=== PATIENT | female | born 1970 | race Caucasian/White ===

== ENCOUNTER → 2023-10-13 09:19 | Outpatient (REF) | payer BC, SELFPAY ==
[2023-10-13 12:18] LABS: Urine Albumin Negative (Neg - Trace); Urine Bilirubin Negative (Negative); Urine Character Clear (Clear); Urine Color Yellow; Urine Glucose Negative (Negative); Urine Ketone Negative (Negative); Urine Leukocyte Trace (Negative); Urine Nitrite Negative (Negative); Urine Occult Blood Negative (Negative); Urine Urobilinogen Negative (Neg - 1+)
[2023-10-13 12:20] LABS: % Eosinophils 2.2 % (0-6); % Immature Granulocytes 0.2 % (0-0.5); % Lymphocytes 39.1 % (20.5-51.1); % Monocytes 7.3 % (1.7-9.3); % Neutrophils 50.2 % (42.2-75.2); Absolute Eosinophils 0.1 10^3/uL (0-0.7); Absolute Lymphocytes 1.6 10^3/uL (1.2-3.4); Absolute Monocytes 0.3 10^3/uL (0.1-0.6); Absolute Neutrophils 2.1 10^3/uL (1.4-6.5); Hematocrit 32.9 % (37.0-47.0); Hemoglobin 11.2 g/dL (12.0-16.0); Mean Corpuscular Hgb 32.5 pg (27.0-31.0); Mean Corpuscular Volume 95.4 fL (81.0-99.0); Mean Platelet Volume 9.3 fL (7.4-10.4); Nucleated Red Blood Cells % 0 %; Platelet Count 208 10^3/uL (130-400); Red Blood Cell Count 3.45 10^6/uL (4.20-5.40); Red Cell Dist. Width 13.2 % (11.5-14.5); White Blood Cell Count 4.1 10^3/uL (4.8-10.8)
[2023-10-13 12:55] LABS: ALT (SGPT) 33 U/L (0-35); AST (SGOT) 42 U/L (14-36); Albumin 3.5 g/dl (3.5-5.0); Alkaline Phosphatase 115 U/L (38-126); Blood Urea Nitrogen 22 mg/dl (7-17); Calcium 10.5 mg/dl (8.4-10.2); Carbon Dioxide 27 mmol/L (22-30); Chloride 100 mmol/L (98-107); Glucose 75 mg/dl (70-99); Magnesium 2.3 mg/dl (1.6-2.3); Phosphorus 5.4 mg/dl (2.5-4.5); Potassium 5.7 mmol/L (3.5-5.1); Sodium 129 mmol/L (135-145); Total Bilirubin 0.8 mg/dl (0.2-1.3); Total Cholesterol 220 mg/dl (50-199); Total Protein 5.9 g/dl (6.3-8.2); Triglyceride 129 mg/dl (10-149); Very Low Density Lipoprotein 25 mg/dl (0-30)
[2023-10-13 13:03] LABS: HDL Cholesterol 135 mg/dl; LDL Cholesterol, Calculated 60 mg/dl
[2023-10-13 13:10] LABS: Free T4 1.16 ng/dl (0.78-2.19)
[2023-10-13 13:24] LABS: TSH < 0.02 uIU/ml (0.47-4.68)
[2023-10-13 13:26] LABS: Urine Bacteria Few (Negative); Urine Red Blood Cell 0-2 /HPF (0-2)
== END ==
LOC: HWLAB 09:19
PROVIDERS: ATTENDING PHYSICIAN Internal Medicine; FAMILY PHYSICIAN Internal Medicine; OTHER PHYSICIAN Physician Assistant Medical; REFERRING PHYSICIAN Internal Medicine Nephrology
DX: E03.9 Hypothyroidism, unspecified (principal); N20.0 Calculus of kidney; N18.4 Chronic kidney disease, stage 4 (severe); N13.2 Hydronephrosis with renal and ureteral calculous obstruction; E43 Unspecified severe protein-calorie malnutrition; D63.1 Anemia in chronic kidney disease; S06.0X0A Concussion without loss of consciousness, initial encounter; S09.90XA Unspecified injury of head, initial encounter; R63.4 Abnormal weight loss; N18.32 Chronic kidney disease, stage 3b
CPT/HCPCS: 36415; 80053; 80061; 81003; 81015; 83735; 84100; 84439; 84443; 85025; 87086

== ENCOUNTER → 2023-10-16 13:20 | Outpatient (REF) | payer BC, SELFPAY | LOC: HWRAD 13:20 | PROVIDERS: ATTENDING PHYSICIAN Internal Medicine Nephrology; FAMILY PHYSICIAN Internal Medicine | DX: N20.0 Calculus of kidney (principal); N13.2 Hydronephrosis with renal and ureteral calculous obstruction; N18.4 Chronic kidney disease, stage 4 (severe); E43 Unspecified severe protein-calorie malnutrition; N17.9 Acute kidney failure, unspecified; E87.5 Hyperkalemia; E83.39 Other disorders of phosphorus metabolism | CPT/HCPCS: 74176 ==

== ENCOUNTER → 2023-10-26 06:35 | Outpatient (REF) | payer BC, SELFPAY ==
[2023-10-26 07:13] LABS: Ionized Calcium 1.11 mMOL/L (1.15-1.33)
[2023-10-26 07:18] LABS: % Basophils 1.1 % (0-2); % Eosinophils 4.1 % (0-6); % Immature Granulocytes 0.2 % (0-0.5); % Lymphocytes 40.2 % (20.5-51.1); % Monocytes 6.8 % (1.7-9.3); % Neutrophils 47.6 % (42.2-75.2); Absolute Basophils 0.1 10^3/uL (0-0.2); Absolute Eosinophils 0.2 10^3/uL (0-0.7); Absolute Lymphocytes 1.8 10^3/uL (1.2-3.4); Absolute Monocytes 0.3 10^3/uL (0.1-0.6); Absolute Neutrophils 2.2 10^3/uL (1.4-6.5); Hematocrit 30.8 % (37.0-47.0); Hemoglobin 10.1 g/dL (12.0-16.0); Mean Corp Hgb Conc. 32.8 g/dL (33.0-37.0); Mean Corpuscular Hgb 32.3 pg (27.0-31.0); Mean Corpuscular Volume 98.4 fL (81.0-99.0); Mean Platelet Volume 9.1 fL (7.4-10.4); Nucleated Red Blood Cells % 0 %; Platelet Count 220 10^3/uL (130-400); Red Blood Cell Count 3.13 10^6/uL (4.20-5.40); Red Cell Dist. Width 13.1 % (11.5-14.5); White Blood Cell Count 4.6 10^3/uL (4.8-10.8)
[2023-10-26 07:27] LABS: ALT (SGPT) 14 U/L (0-35); AST (SGOT) 29 U/L (14-36); Albumin 3.3 g/dl (3.5-5.0); Alkaline Phosphatase 83 U/L (38-126); Blood Urea Nitrogen 24 mg/dl (7-17); Calcium 8.2 mg/dl (8.4-10.2); Calcium 8.4 mg/dl (8.4-10.2); Carbon Dioxide 24 mmol/L (22-30); Chloride 98 mmol/L (98-107); Glucose 75 mg/dl (70-99); Iron 65 ug/dl (37-170); Magnesium 2.1 mg/dl (1.6-2.3); Phosphorus 5.1 mg/dl (2.5-4.5); Potassium 5.1 mmol/L (3.5-5.1); Sodium 130 mmol/L (135-145); Total Bilirubin 0.6 mg/dl (0.2-1.3); Total Protein 5.4 g/dl (6.3-8.2); eGFR 22.16
[2023-10-26 07:36] LABS: Percent Saturation 27 % (20-50); Total Iron Binding Capacity 235 ug/dl (265-497)
[2023-10-26 07:44] LABS: Free T4 1.02 ng/dl (0.78-2.19)
[2023-10-26 07:58] LABS: Cortisol, Random 36.5 ug/dl; TSH < 0.02 uIU/ml (0.47-4.68)
[2023-10-26 08:02] LABS: Ferritin 16.7 ng/ml (11.1-264.0)
[2023-10-26 08:03] LABS: Ferritin 16.4 ng/ml (11.1-264.0)
[2023-10-26 08:56] LABS: Vitamin D, 25-OH*** 61.9 ng/mL (30-80)
[2023-10-26 13:41] LABS: Intact PTH < 3.4 pg/ml (13.6-85.8)
== END ==
LOC: REG 06:35
PROVIDERS: ATTENDING PHYSICIAN Urology; FAMILY PHYSICIAN Internal Medicine; OTHER PHYSICIAN Internal Medicine; REFERRING PHYSICIAN Internal Medicine Nephrology
DX: S06.0X0A Concussion without loss of consciousness, initial encounter (principal); S09.90XA Unspecified injury of head, initial encounter; R63.4 Abnormal weight loss; N18.32 Chronic kidney disease, stage 3b; E03.9 Hypothyroidism, unspecified; R06.02 Shortness of breath; N20.0 Calculus of kidney; N13.2 Hydronephrosis with renal and ureteral calculous obstruction; N18.4 Chronic kidney disease, stage 4 (severe); E43 Unspecified severe protein-calorie malnutrition; D63.1 Anemia in chronic kidney disease; E20.9 Hypoparathyroidism, unspecified; R79.89 Other specified abnormal findings of blood chemistry
CPT/HCPCS: 36415; 80053; 80069; 82040; 82306; 82330; 82533; 82728; 83540; 83550; 83735; 83970; 84100; 84439; 84443; 85025

== ENCOUNTER → 2023-11-02 07:06 | Outpatient (REF) | payer BC, SELFPAY ==
[2023-11-02 07:31] LABS: % Eosinophils 3.4 % (0-6); % Immature Granulocytes 0.2 % (0-0.5); % Monocytes 8.1 % (1.7-9.3); % Neutrophils 48.3 % (42.2-75.2); Absolute Basophils 0.1 10^3/uL (0-0.2); Absolute Eosinophils 0.2 10^3/uL (0-0.7); Absolute Lymphocytes 1.9 10^3/uL (1.2-3.4); Absolute Monocytes 0.4 10^3/uL (0.1-0.6); Absolute Neutrophils 2.4 10^3/uL (1.4-6.5); Hematocrit 28.9 % (37.0-47.0); Hemoglobin 9.8 g/dL (12.0-16.0); Mean Corp Hgb Conc. 33.9 g/dL (33.0-37.0); Mean Corpuscular Hgb 32.7 pg (27.0-31.0); Mean Corpuscular Volume 96.3 fL (81.0-99.0); Nucleated Red Blood Cells % 0 %; Platelet Count 255 10^3/uL (130-400)
[2023-11-02 07:49] LABS: ALT (SGPT) 16 U/L (0-35); AST (SGOT) 26 U/L (14-36); Alkaline Phosphatase 87 U/L (38-126); Blood Urea Nitrogen 34 mg/dl (7-17); Calcium 10.4 mg/dl (8.4-10.2); Carbon Dioxide 22 mmol/L (22-30); Chloride 98 mmol/L (98-107); Direct Bilirubin 0.6 mg/dl (0.0-0.4); Glucose 77 mg/dl (70-99); Iron 68 ug/dl (37-170); Magnesium 2.2 mg/dl (1.6-2.3); Potassium 4.5 mmol/L (3.5-5.1); Sodium 131 mmol/L (135-145); Total Bilirubin 0.6 mg/dl (0.2-1.3); Total Protein 5.3 g/dl (6.3-8.2); eGFR 22.16
[2023-11-02 07:58] LABS: Percent Saturation 29 % (20-50); Total Iron Binding Capacity 228 ug/dl (265-497)
[2023-11-02 08:24] LABS: Ferritin 12.3 ng/ml (11.1-264.0)
[2023-11-02 13:42] LABS: Phosphorus 5.4 mg/dl (2.5-4.5)
== END ==
LOC: REG 07:06
PROVIDERS: ATTENDING PHYSICIAN Internal Medicine Nephrology; FAMILY PHYSICIAN Internal Medicine
DX: N18.9 Chronic kidney disease, unspecified (principal); N20.0 Calculus of kidney; N18.4 Chronic kidney disease, stage 4 (severe); N32.2 Vesical fistula, not elsewhere classified; E43 Unspecified severe protein-calorie malnutrition; D63.1 Anemia in chronic kidney disease; N13.2 Hydronephrosis with renal and ureteral calculous obstruction
CPT/HCPCS: 36415; 80053; 82248; 82728; 83540; 83550; 83735; 84100; 85025

== ENCOUNTER → 2023-11-09 06:39 | Outpatient (REF) | payer BC, SELFPAY ==
[2023-11-09 07:19] LABS: Albumin 3.3 g/dl (3.5-5.0); Blood Urea Nitrogen 33 mg/dl (7-17); Calcium 11.1 mg/dl (8.4-10.2); Carbon Dioxide 25 mmol/L (22-30); Chloride 101 mmol/L (98-107); Glucose 77 mg/dl (70-99); Phosphorus 4.8 mg/dl (2.5-4.5); Potassium 4.8 mmol/L (3.5-5.1); Sodium 130 mmol/L (135-145); eGFR 18.54
== END ==
LOC: REG 06:39
PROVIDERS: ATTENDING PHYSICIAN Internal Medicine Nephrology; FAMILY PHYSICIAN Internal Medicine
DX: N18.4 Chronic kidney disease, stage 4 (severe) (principal); N13.2 Hydronephrosis with renal and ureteral calculous obstruction; N20.0 Calculus of kidney; E43 Unspecified severe protein-calorie malnutrition; D63.1 Anemia in chronic kidney disease
CPT/HCPCS: 36415; 80069

== ENCOUNTER 2023-11-11 08:28 | Emergency (ER) | payer BC, SELFPAY ==
[2023-11-11 08:38] VITALS: BP 111/67
--- NOTE | 2023-11-11 08:46 | ED.GENMED ---
History of Present Illness
General
Chief Complaint: Cold/Flu/URI Symptoms
Time Seen by Provider: 11/11/23 08:46
Travel History
Have you had any contact with someone who has COVID-19?: No
Do you have any symptoms of coronavirus? Fever > 100 degrees, chills, cough, shortness of breath, sore throat, loss of taste or smell, muscle aches, or headache?: No
History of Present Illness
History of Present Illness:
HPI: The patient presents due to worsening URI symptoms over the last couple of days. She has a history of CKD. She has sore throat, cough, left ear pain, has had vertigo couple of weeks ago, and has generalized achiness. She has chills. She has
upcoming peritoneal dialysis for the first time.
EXAM:
GENERAL: Appears rather thin
HEENT: Slightly dry oral mucosa, both TMs are dark with loss of light reach
CARDIOVASCULAR: No murmurs, normal heart rate and rhythm, No chest wall tenderness
PULMONARY: No respiratory distress, breath sounds are clear and equal
ABDOMEN: Soft with no peritoneal signs, no tenderness
NEUROLOGIC: Excellent strength all extremities, no coordination deficits
PSYCHIATRIC: Appropriate mental status, normal insight and judgement
EXTREMITIES: Nontender, no edema, moves all extremities equally
SKIN: No rash, no lesions
ED COURSE:
8:50 AM: I initially evaluated patient
NUMBER AND COMPLEXITY OF PROBLEMS ADDRESSED AT THE ENCOUNTER
� Chronic conditions affecting care: Lyme disease, RSD, Junior's esophagus, thyroid disease, anemia, has had renal insufficiency
� Acute Exacerbation and/or Progression of Chronic Illness: This is an acute problem
� Differential Diagnosis includes: Worsening renal function, viral syndrome, pneumonia
AMOUNT AND/OR COMPLEXITY OF DATA TO BE REVIEWED AND ANALYZED
� I performed an independent evaluation of and my interpretation is:
EKG:
CT:
X-rays: I personally reviewed chest x-ray which shows hyperaeration with no clear sign of consolidation
Laboratory Studies: White count 4.4, hemoglobin 8.8, send COVID and flu are both negative, creatinine is near baseline at 2.9, sodium slightly low at 129, phosphorus is high at 5.1.
Other:
� Review of other/old records: Blood work from 9 days ago showed a white count that was normal, hemoglobin 9.8 which is near baseline, and creatinine of 2.9 which is also near baseline. CT from earlier this month showed a 3 mm
distal left ureteral stone
� Clinical information was obtained by an independent historian: I spoke to sister and mother at bedside
� Prescriptions/Medications Considered but not given: I offered and considered to give IV fluids however the patient declines and only wants to take her oral water that she brought.
� Further testing considered but not performed:
RISK OF COMPLICATIONS AND/OR MORBIDITY OR MORTALITY OF PATIENT MANAGEMENT
� Social determinants of health affecting care: Lives at home
� Discussion with other providers:
� Escalation of care including admission/observation vs risk of discharge considered: Slightly lower hemoglobin compared to prior. She declines IV fluids. Sodium slightly low and phosphorus slightly high�PhosLo has been
ordered. COVID and flu are negative. I reassessed patient at 10:20 AM�she is fairly well-appearing at time of discharge. Although she has several lab abnormalities these are not significantly changed from prior. Suspect more of a viral syndrome.
She also does some vertigo which she is already on meclizine. She has normal finger-nose testing at time of discharge.
Past History
Past History
ED Past Medical History: CHF, Hypothyroidism and Other (Lyme, Barrets esophagus, Pancreatic malobsorption, KIdney stones, Anemia, )
ED Past Surgical History: Urological (Nephostomy, Right ureteral reimplantation) and Other (Parathyroidectomy, Hernia repair)
Social History
Tobacco: Non-smoker
Alcohol: None
Drug: None
Personal:
Living: with family
Employment: Employed (Pharm sales)
Family History
Family History: Other (History her father has a 'weak heart')
Phy Exam
Physical Exam
Physical Exam:
See HPI
Course
Orders/Labs/Results
Orders:
Orders
11/11/23 08:57
CR Chest - 2 Views Urgent
Comment:
Reason For Exam: cough
11/11/23 09:06
Basic Metabolic Panel Urgent
COVID-19 Antigen Urgent
Source: Nasal Swab
Complete Blood Count/With Diff Urgent
Magnesium Urgent
Phosphorus Urgent
Influenza A+B Rapid Molecular Urgent
LILIBETH Source: Nasal Swab
Specimen Description:
11/11/23 10:09
Calcium Acetate [Phoslo] 1,334 mg PO MEALS STA
Abnormal Lab Results
11/11/23
09:06
WBC 4.4 L 10^3/uL
(4.8-10.8)
RBC 2.77 L 10^6/uL
(4.20-5.40)
Hgb 8.8 L g/dL
(12.0-16.0)
Hct 26.1 L %
(37.0-47.0)
MCH 31.8 H pg
(27.0-31.0)
Absolute Lymphs (auto) 1.1 L 10^3/uL
(1.2-3.4)
Monocytes % 10.9 H %
(1.7-9.3)
Sodium 129 L mmol/L
(135-145)
BUN 30 H mg/dl
(7-17)
Creatinine 2.9 H mg/dL
(0.6-1.0)
Phosphorus 5.1 H mg/dl
(2.5-4.5)
11/11/23 09:06
11/11/23 09:06
Vital Signs
Initial and Last Documented VS:
Initial Vital Signs
Temp Pulse Resp BP Pulse Ox
99.1 F 76 16 111/67 100
11/11/23 08:38 11/11/23 08:38 11/11/23 08:38 11/11/23 08:38 11/11/23 08:38
Last Documented Vital Signs
Temp Pulse Resp BP Pulse Ox
99.1 F 71 18 96/62 99
11/11/23 08:38 11/11/23 10:33 11/11/23 10:33 11/11/23 10:33 11/11/23 10:33
*Critical Care Note
Total Time (30-74mins, 75-104mins- exclusive of procedures): Not Applicable
ED Attending Note
-
Portions of this chart may have been created with voice recognition software.� Occasional wrong word or��sound alike� substitutions may have occurred due to the inherent limitations of voice recognition software.
Discharge Plan
Departure
Patient Disposition: Home (Routine Discharge)
Date of Disposition: 11/11/23
Time of Disposition: 10:23
Patient with high blood pressure during this ER visit?: No
Discharge Problem:
Renal insufficiency
Instructions: Viral Syndrome (DC), Chronic Kidney Disease (DC)
Prescriptions:
No Action
cyanocobalamin (vitamin B-12) 1,000 MCG tablet
1,000 mcg PO DAILY Qty: 0
acetaminophen [Tylenol Extra Strength] 500 MG tablet
1,000 mg PO BIDPRN PRN (Reason: mild pain)
Children's Probiotic 5 billion cell Tablet,Chewable
2 tab PO DAILY
Theragen Tablet
1 tab PO DAILY
levothyroxine [Synthroid] 50 mcg Tablet
50 mcg PO DAILY
calcium carbonate [Tums] 200 mg calcium (500 mg) Tablet,Chewable
600 mg PO QPM
biotin 1 mg Tablet
1 mg PO DAILY
sodium bicarbonate 650 mg tablet
650 mg PO BID 7 Days Qty: 14 0RF
Referrals:
Cipriano Turner MD [Family Provider] -
Activity Restrictions/Additional Instructions:
Your creatinine is 2.9/GFR is 18.54�this is unchanged from prior. Phosphorus is slightly high at 5.1. Sodium slightly low at 129, hemoglobin is 8.8 which is just slightly lower than prior. Your white count is slightly low at 4.4 which is also
chronic. Please follow-up with your PMD. Tylenol is safest for pain.
Interventions
Interventions:
*Risk Screen - Suicide Last Done: 11/11/23 08:56
*General Assessment Last Done: 11/11/23 08:56
*Neglect/Abuse Screening Last Done: 11/11/23 08:56
*ED COVID-19 Vaccine History Last Done: 11/11/23 08:38
*Nursing Disposition Last Done: 11/11/23 10:38
ED- Pulmonary Assessment Last Done: 11/11/23 08:57
Discharge Date and Time
Discharge Date/Time: 11/11/23 10:41
[2023-11-11 09:13] LABS: % Basophils 0.9 % (0-2); % Eosinophils 0.7 % (0-6); % Immature Granulocytes 0.5 % (0-0.5); % Lymphocytes 25.3 % (20.5-51.1); % Monocytes 10.9 % (1.7-9.3); % Neutrophils 61.7 % (42.2-75.2); Absolute Lymphocytes 1.1 10^3/uL (1.2-3.4); Absolute Monocytes 0.5 10^3/uL (0.1-0.6); Absolute Neutrophils 2.7 10^3/uL (1.4-6.5); Hematocrit 26.1 % (37.0-47.0); Hemoglobin 8.8 g/dL (12.0-16.0); Mean Corp Hgb Conc. 33.7 g/dL (33.0-37.0); Mean Corpuscular Hgb 31.8 pg (27.0-31.0); Mean Corpuscular Volume 94.2 fL (81.0-99.0); Mean Platelet Volume 9.3 fL (7.4-10.4); Nucleated Red Blood Cells % 0 %; Platelet Count 168 10^3/uL (130-400); Red Blood Cell Count 2.77 10^6/uL (4.20-5.40); Red Cell Dist. Width 12.8 % (11.5-14.5); White Blood Cell Count 4.4 10^3/uL (4.8-10.8)
[2023-11-11 09:29] LABS: COVID-19 Antigen Negative (Negative)
[2023-11-11 09:43] LABS: Blood Urea Nitrogen 30 mg/dl (7-17); Calcium 9.3 mg/dl (8.4-10.2); Carbon Dioxide 25 mmol/L (22-30); Chloride 98 mmol/L (98-107); Glucose 80 mg/dl (70-99); Magnesium 2.2 mg/dl (1.6-2.3); Potassium 4.4 mmol/L (3.5-5.1); Sodium 129 mmol/L (135-145); eGFR 18.54
[2023-11-11 09:59] LABS: Phosphorus 5.1 mg/dl (2.5-4.5)
[2023-11-11 10:33] VITALS: BP 96/62
[2023-11-11] MEDS: PHOSLO 1334 MG PO (10:34)
== END 2023-11-11 10:41 | disposition home or self-care (01) ==
LOC: EMR 08:28
PROVIDERS: EMERGENCY PHYSICIAN Emergency Medicine; FAMILY PHYSICIAN Internal Medicine
DX: N28.9 Disorder of kidney and ureter, unspecified (principal); D64.9 Anemia, unspecified; A69.20 Lyme disease, unspecified; K22.70 Barrett's esophagus without dysplasia; E07.9 Disorder of thyroid, unspecified; Z11.52 Encounter for screening for COVID-19; N20.1 Calculus of ureter
CPT/HCPCS: 99284; 71046; 80048; 83735; 84100; 85025; 87502; 87811

== ENCOUNTER → 2023-11-16 06:38 | Outpatient (REF) | payer BC, SELFPAY ==
[2023-11-16 07:15] LABS: Albumin 3.4 g/dl (3.5-5.0); Blood Urea Nitrogen 31 mg/dl (7-17); Calcium 9.1 mg/dl (8.4-10.2); Carbon Dioxide 21 mmol/L (22-30); Chloride 100 mmol/L (98-107); Glucose 82 mg/dl (70-99); Phosphorus 4.8 mg/dl (2.5-4.5); Potassium 4.9 mmol/L (3.5-5.1); Sodium 131 mmol/L (135-145); eGFR 22.16
== END ==
LOC: REG 06:38
PROVIDERS: ATTENDING PHYSICIAN Internal Medicine Nephrology; FAMILY PHYSICIAN Internal Medicine
DX: N18.4 Chronic kidney disease, stage 4 (severe) (principal); N13.2 Hydronephrosis with renal and ureteral calculous obstruction; N20.0 Calculus of kidney; E43 Unspecified severe protein-calorie malnutrition; D63.1 Anemia in chronic kidney disease
CPT/HCPCS: 36415; 80069

== ENCOUNTER → 2023-11-21 07:35 | Outpatient (REF) | payer BC, SELFPAY ==
[2023-11-21 08:24] LABS: % Basophils 1.1 % (0-2); % Eosinophils 2.2 % (0-6); % Immature Granulocytes 0.2 % (0-0.5); % Monocytes 7.6 % (1.7-9.3); % Neutrophils 52.9 % (42.2-75.2); Absolute Basophils 0.1 10^3/uL (0-0.2); Absolute Eosinophils 0.1 10^3/uL (0-0.7); Absolute Monocytes 0.4 10^3/uL (0.1-0.6); Absolute Neutrophils 2.9 10^3/uL (1.4-6.5); Hematocrit 29.5 % (37.0-47.0); Mean Corp Hgb Conc. 33.9 g/dL (33.0-37.0); Mean Corpuscular Hgb 32.3 pg (27.0-31.0); Mean Corpuscular Volume 95.2 fL (81.0-99.0); Mean Platelet Volume 8.7 fL (7.4-10.4); Nucleated Red Blood Cells % 0 %; Platelet Count 350 10^3/uL (130-400); Red Cell Dist. Width 12.9 % (11.5-14.5); White Blood Cell Count 5.4 10^3/uL (4.8-10.8)
[2023-11-21 08:40] LABS: Albumin 3.4 g/dl (3.5-5.0); Blood Urea Nitrogen 28 mg/dl (7-17); Calcium 9.3 mg/dl (8.4-10.2); Carbon Dioxide 23 mmol/L (22-30); Chloride 100 mmol/L (98-107); Glucose 84 mg/dl (70-99); Phosphorus 4.8 mg/dl (2.5-4.5); Sodium 132 mmol/L (135-145); eGFR 19.34
[2023-11-21 08:46] LABS: Potassium 5.5 mmol/L (3.5-5.1)
== END ==
LOC: REG 07:35
PROVIDERS: ATTENDING PHYSICIAN Internal Medicine Nephrology; FAMILY PHYSICIAN Internal Medicine
DX: N18.4 Chronic kidney disease, stage 4 (severe) (principal); N13.2 Hydronephrosis with renal and ureteral calculous obstruction; N20.0 Calculus of kidney; E43 Unspecified severe protein-calorie malnutrition; D63.1 Anemia in chronic kidney disease
CPT/HCPCS: 36415; 80069; 85025

== ENCOUNTER → 2023-11-28 07:12 | Outpatient (REF) | payer BC, SELFPAY ==
[2023-11-28 08:08] LABS: Blood Urea Nitrogen 31 mg/dl (7-17); Calcium 6.9 mg/dl (8.4-10.2); Carbon Dioxide 27 mmol/L (22-30); Chloride 97 mmol/L (98-107); Glucose 91 mg/dl (70-99); Phosphorus 4.7 mg/dl (2.5-4.5); Potassium 4.6 mmol/L (3.5-5.1); Sodium 130 mmol/L (135-145); eGFR 24.49
== END ==
LOC: REG 07:12
PROVIDERS: ATTENDING PHYSICIAN Internal Medicine Nephrology; FAMILY PHYSICIAN Internal Medicine
DX: N18.4 Chronic kidney disease, stage 4 (severe) (principal); N13.2 Hydronephrosis with renal and ureteral calculous obstruction; N20.0 Calculus of kidney; E43 Unspecified severe protein-calorie malnutrition; D63.1 Anemia in chronic kidney disease
CPT/HCPCS: 36415; 80069

== ENCOUNTER 2023-11-28 14:48 | Emergency (ER) | payer BC, SELFPAY ==
[2023-11-28 16:18] VITALS: BP 110/71
[2023-11-28 17:00] VITALS: BP 98/68
[2023-11-28 17:48] LABS: Ionized Calcium 0.89 mMOL/L (1.15-1.33)
[2023-11-28] MEDS: CALCIUM GLUCONATE 100 IV (17:49)
--- NOTE | 2023-11-28 17:57 | ED.GENMED ---
History of Present Illness
General
Chief Complaint: Abnormal Lab Value
Source: patient
Exam Limitations: none
Time Seen by Provider: 11/28/23 17:05
Travel History
Have you had any contact with someone who has COVID-19?: No
Do you have any symptoms of coronavirus? Fever > 100 degrees, chills, cough, shortness of breath, sore throat, loss of taste or smell, muscle aches, or headache?: No
History of Present Illness
History of Present Illness:
Patient presents with hypocalcemia. Has had symptoms of same for the last 2 to 3 days with some nervelike irritation spasms. Patient with stage V kidney disease. Told by her research program assistant to come in for IV calcium
Past History
Past History
ED Past Medical History: CHF, Hypothyroidism and Other (Lyme, Barrets esophagus, Pancreatic malobsorption, KIdney stones, Anemia, stage V kidney disease)
ED Past Surgical History: Urological (Nephostomy, Right ureteral reimplantation) and Other (Parathyroidectomy, Hernia repair)
Social History
Tobacco: Non-smoker
Alcohol: None
Drug: None
Personal:
Living: with family
Employment: Employed (Pharm sales)
Family History
Family History: Other (History her father has a 'weak heart')
Review of Systems
Review of Systems
All Other Systems: Not applicable
Constitutional: Denies fever
Cardiac: Reports no symptoms
ABD/GI: Reports no symptoms
Phy Exam
Physical Exam
Physical Exam:
GENERAL: Alert and oriented in no apparent distress
EYE: Orbits normal.
NECK: Supple
CARDIAC: Regular rate and rhythm without any obvious murmurs.
LUNGS: Clear breath sounds,normal
ABDOMEN: Soft, without focal tenderness or distention
NEUROLOGICAL: Alert and oriented , grossly non-focal. No unusual reflexes
SKIN: Warm and dry, superficial skin tear to the right lower extremity with retraction of the V shaped fragment. No signs of infection
MUSCULOSKELETAL: No edema,no deformity.Good color
PSYCH: Normal and appropriate interaction.
Course
Orders/Labs/Results
Orders:
Orders
11/28/23 16:26
Electrocardiogram (*1) Urgent
Reason for Study: Other
Other Reason for Exam: abnormal labs
11/28/23 16:27
EKG- Treatment ONCE
11/28/23 17:30
Calcium Gluconate 2 gram/100mL [Calcium Gluconate] 2 gram in 100 ml IV ONCE
11/28/23 17:35
BMP [Basic Metabolic Panel] Urgent
Ionized Calcium Urgent
Magnesium Urgent
Abnormal Lab Results
11/28/23
17:35
Sodium 129 L mmol/L
(135-145)
BUN 27 H mg/dl
(7-17)
Creatinine 2.3 H mg/dL
(0.6-1.0)
Glucose 66 L mg/dl
(70-99)
Calcium 6.7 L* mg/dl
(8.4-10.2)
Ionized Calcium 0.89 L mMOL/L
(1.15-1.33)
11/28/23 17:35
Vital Signs
Initial and Last Documented VS:
Initial Vital Signs
BP
110/71
11/28/23 16:18
Last Documented Vital Signs
Temp Pulse Resp BP Pulse Ox
98 F 75 18 100/58 96
11/28/23 19:10 11/28/23 19:10 11/28/23 19:10 11/28/23 19:10 11/28/23 19:10
*Critical Care Note
Total Time (30-74mins, 75-104mins- exclusive of procedures): Not Applicable
Update Note
Update Note:
Discussed with patient's covering research program assistant who requested 2 g of calcium. Also check a magnesium level. If all stable can be discharged to follow-up
Prior to discharge patient standing at the door anxious to leave. Feels better already. Will follow-up closely with labs. Ongoing hyponatremia.
ED Attending Note
-
Portions of this chart may have been created with voice recognition software.� Occasional wrong word or��sound alike� substitutions may have occurred due to the inherent limitations of voice recognition software.
Discharge Plan
Departure
Patient Disposition: Home (Routine Discharge)
Date of Disposition: 11/28/23
Time of Disposition: 18:58
Patient with high blood pressure during this ER visit?: No
Discharge Problem:
hypocalcemia, Hyponatremia, Chronic renal disease
Instructions: Hyponatremia (DC), Hypocalcemia (DC)
Prescriptions:
No Action
acetaminophen [Tylenol Extra Strength] 500 mg Tablet
1,000 mg PO BIDPRN PRN (Reason: mild pain)
levothyroxine 50 mcg Tablet
50 mcg PO DAILY
sevelamer carbonate 800 mg Tablet
1,600 mg PO QPM
biotin 1,000 mcg Tablet,Chewable
1,000 mcg PO DAILY
Lokelma 10 gram Powder In Packet
10 g PO MOWEFR@0800
Patient Comments:
11/28/2023, per pt., they got samples of this med. from their [employer]; they mix a 10 gram packet with 3 grams of water per pt.
calcium carbonate 750 mg tablet
750 mg PO DAILY
calcium carbonate 750 mg tablet
1,500 mg PO QPM
calcium carbonate 750 mg tablet
1,500 mg PO QIDPRN PRN (Reason: heartburn)
Referrals:
Cipriano Turner MD [Family Provider] - Follow up in 2-3 days
Activity Restrictions/Additional Instructions:
Follow-up early in the week with your research program assistant and get repeat labs
Interventions
Interventions:
*Risk Screen - Suicide Last Done: 11/28/23 16:19
*General Assessment Last Done: 11/28/23 14:57
*Neglect/Abuse Screening Last Done: 11/28/23 16:19
*ED COVID-19 Vaccine History Last Done: 11/28/23 14:57
*Nursing Disposition Last Done: 11/28/23 19:10
Discharge Date and Time
Discharge Date/Time: 11/28/23 19:11
[2023-11-28 18:19] LABS: Blood Urea Nitrogen 27 mg/dl (7-17); Calcium 6.7 mg/dl (8.4-10.2); Carbon Dioxide 24 mmol/L (22-30); Chloride 98 mmol/L (98-107); Estimated Creatinine Clearance 13 ml/min; Glucose 66 mg/dl (70-99); Potassium 4.5 mmol/L (3.5-5.1); Sodium 129 mmol/L (135-145); eGFR 24.49
[2023-11-28 19:10] VITALS: BP 100/58
== END 2023-11-28 19:11 | disposition home or self-care (01) ==
LOC: EMR 14:48
PROVIDERS: EMERGENCY PHYSICIAN Emergency Medicine; FAMILY PHYSICIAN Internal Medicine
DX: E83.51 Hypocalcemia (principal); E87.1 Hypo-osmolality and hyponatremia; N18.5 Chronic kidney disease, stage 5
CPT/HCPCS: 99284; 96374; 36415; 80048; 80069; 82330; 83735; 93005

== ENCOUNTER → 2023-11-30 06:33 | Outpatient (REF) | payer BC, SELFPAY ==
[2023-11-30 07:34] LABS: Blood Urea Nitrogen 25 mg/dl (7-17); Calcium 6.8 mg/dl (8.4-10.2); Carbon Dioxide 25 mmol/L (22-30); Chloride 100 mmol/L (98-107); Glucose 77 mg/dl (70-99); Phosphorus 5.2 mg/dl (2.5-4.5); Potassium 4.2 mmol/L (3.5-5.1); Sodium 131 mmol/L (135-145); eGFR 25.83
== END ==
LOC: REG 06:33
PROVIDERS: ATTENDING PHYSICIAN Internal Medicine Nephrology; FAMILY PHYSICIAN Internal Medicine
DX: N18.4 Chronic kidney disease, stage 4 (severe) (principal); N13.2 Hydronephrosis with renal and ureteral calculous obstruction; N20.0 Calculus of kidney; E43 Unspecified severe protein-calorie malnutrition; D63.1 Anemia in chronic kidney disease
CPT/HCPCS: 36415; 80069

== ENCOUNTER → 2023-12-02 06:31 | Outpatient (REF) | payer BC, SELFPAY ==
[2023-12-02 07:28] LABS: Blood Urea Nitrogen 24 mg/dl (7-17); Calcium 7.5 mg/dl (8.4-10.2); Carbon Dioxide 25 mmol/L (22-30); Chloride 102 mmol/L (98-107); Glucose 86 mg/dl (70-99); Phosphorus 5.8 mg/dl (2.5-4.5); Potassium 5.1 mmol/L (3.5-5.1); Sodium 133 mmol/L (135-145); eGFR 25.83
== END ==
LOC: REG 06:31
PROVIDERS: ATTENDING PHYSICIAN Internal Medicine Nephrology; FAMILY PHYSICIAN Internal Medicine
DX: N18.4 Chronic kidney disease, stage 4 (severe) (principal); N13.2 Hydronephrosis with renal and ureteral calculous obstruction; N20.0 Calculus of kidney; E43 Unspecified severe protein-calorie malnutrition; D63.1 Anemia in chronic kidney disease
CPT/HCPCS: 36415; 80069

== ENCOUNTER → 2023-12-04 06:31 | Outpatient (REF) | payer BC, SELFPAY ==
[2023-12-04 07:04] LABS: Ionized Calcium 0.83 mMOL/L (1.15-1.33)
[2023-12-04 07:30] LABS: ALT (SGPT) 24 U/L (0-35); AST (SGOT) 35 U/L (14-36); Albumin 3.1 g/dl (3.5-5.0); Alkaline Phosphatase 118 U/L (38-126); Blood Urea Nitrogen 24 mg/dl (7-17); Calcium 7.2 mg/dl (8.4-10.2); Carbon Dioxide 21 mmol/L (22-30); Chloride 101 mmol/L (98-107); Glucose 82 mg/dl (70-99); Magnesium 2.1 mg/dl (1.6-2.3); Phosphorus 3.7 mg/dl (2.5-4.5); Potassium 4.4 mmol/L (3.5-5.1); Sodium 130 mmol/L (135-145); Total Bilirubin 0.6 mg/dl (0.2-1.3); Total Protein 5.5 g/dl (6.3-8.2); eGFR 27.31
[2023-12-04 07:55] LABS: Free T4 1.02 ng/dl (0.78-2.19)
[2023-12-04 08:09] LABS: TSH < 0.02 uIU/ml (0.47-4.68)
[2023-12-05 10:02] LABS: Intact PTH < 3.4 pg/ml (13.6-85.8)
== END ==
LOC: REG 06:31
PROVIDERS: ATTENDING PHYSICIAN Internal Medicine Endocrinology, Diabetes & Metabolism; FAMILY PHYSICIAN Internal Medicine Nephrology; OTHER PHYSICIAN Internal Medicine Endocrinology, Diabetes & Metabolism; REFERRING PHYSICIAN Internal Medicine
DX: E03.9 Hypothyroidism, unspecified (principal); E20.9 Hypoparathyroidism, unspecified; N18.4 Chronic kidney disease, stage 4 (severe); N13.2 Hydronephrosis with renal and ureteral calculous obstruction; N20.0 Calculus of kidney; E43 Unspecified severe protein-calorie malnutrition; D63.1 Anemia in chronic kidney disease
CPT/HCPCS: 36415; 74176; 80053; 82330; 83735; 83970; 84100; 84439; 84443

== ENCOUNTER → 2023-12-07 06:31 | Outpatient (REF) | payer BC, SELFPAY ==
[2023-12-07 07:16] LABS: Ionized Calcium 1.59 mMOL/L (1.15-1.33)
[2023-12-07 07:26] LABS: Albumin 3.3 g/dl (3.5-5.0)
[2023-12-07 07:31] LABS: ALT (SGPT) 27 U/L (0-35); AST (SGOT) 33 U/L (14-36); Albumin 3.4 g/dl (3.5-5.0); Alkaline Phosphatase 136 U/L (38-126); Blood Urea Nitrogen 18 mg/dl (7-17); Calcium 12.4 mg/dl (8.4-10.2); Carbon Dioxide 27 mmol/L (22-30); Chloride 96 mmol/L (98-107); Glucose 99 mg/dl (70-99); Magnesium 2.3 mg/dl (1.6-2.3); Phosphorus 5.7 mg/dl (2.5-4.5); Potassium 4.3 mmol/L (3.5-5.1); Sodium 133 mmol/L (135-145); Total Bilirubin 0.6 mg/dl (0.2-1.3); Total Protein 5.8 g/dl (6.3-8.2); eGFR 23.27
[2023-12-07 07:46] LABS: Free T4 0.81 ng/dl (0.78-2.19)
[2023-12-07 08:00] LABS: TSH < 0.02 uIU/ml (0.47-4.68)
[2023-12-08 09:36] LABS: Intact PTH < 3.4 pg/ml (13.6-85.8)
== END ==
LOC: REG 06:31
PROVIDERS: ATTENDING PHYSICIAN Internal Medicine; FAMILY PHYSICIAN Internal Medicine Endocrinology, Diabetes & Metabolism; REFERRING PHYSICIAN Internal Medicine Nephrology
DX: N18.4 Chronic kidney disease, stage 4 (severe) (principal); N13.2 Hydronephrosis with renal and ureteral calculous obstruction; N20.0 Calculus of kidney; E43 Unspecified severe protein-calorie malnutrition; D63.1 Anemia in chronic kidney disease; E20.9 Hypoparathyroidism, unspecified
CPT/HCPCS: 36415; 80053; 82040; 82330; 83735; 83970; 84100; 84439; 84443

== ENCOUNTER → 2023-12-08 07:59 | Outpatient (REF) | payer BC, SELFPAY ==
[2023-12-08 08:30] LABS: Ionized Calcium 1.45 mMOL/L (1.15-1.33)
[2023-12-08 08:41] LABS: Albumin 3.2 g/dl (3.5-5.0); Blood Urea Nitrogen 19 mg/dl (7-17); Calcium 11.7 mg/dl (8.4-10.2); Carbon Dioxide 23 mmol/L (22-30); Chloride 102 mmol/L (98-107); Glucose 82 mg/dl (70-99); Magnesium 2.1 mg/dl (1.6-2.3); Phosphorus 5.3 mg/dl (2.5-4.5); Potassium 4.3 mmol/L (3.5-5.1); Sodium 131 mmol/L (135-145); eGFR 21.14
== END ==
LOC: REG 07:59
PROVIDERS: ATTENDING PHYSICIAN Internal Medicine Nephrology; FAMILY PHYSICIAN Internal Medicine; REFERRING PHYSICIAN Internal Medicine
DX: N18.4 Chronic kidney disease, stage 4 (severe) (principal); N13.2 Hydronephrosis with renal and ureteral calculous obstruction; N20.0 Calculus of kidney; E43 Unspecified severe protein-calorie malnutrition; D63.1 Anemia in chronic kidney disease; E20.9 Hypoparathyroidism, unspecified
CPT/HCPCS: 36415; 80069; 82330; 83735

== ENCOUNTER 2023-12-13 22:51 | Emergency (ER) | payer BC, SELFPAY ==
[2023-12-13 22:54] VITALS: BP 107/65
--- NOTE | 2023-12-14 01:00 | ED.GENMED ---
History of Present Illness
General
Chief Complaint: Abdominal Pain
Source: patient
Exam Limitations: none
Time Seen by Provider: 12/14/23 00:19
Travel History
Have you had any contact with someone who has COVID-19?: No
Do you have any symptoms of coronavirus? Fever > 100 degrees, chills, cough, shortness of breath, sore throat, loss of taste or smell, muscle aches, or headache?: No
History of Present Illness
History of Present Illness:
This is a 53 year old female that comes in with c/o abd pain. States that she had Surgery on Thursday for placement of a pediatric dialysis catheter. States that this is on the left side. States that she started with pain in the abd at 6:30pm and
the pain has moved to the right side. State that she was told that since she has lost so much weight that the catheter can move and wrap around the intestine. States that she took Dilaudid 2mg but this did not help. State that she called the Care
customer engagement manager and the Prime Minister and was told to come to the ER. 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 States that she feels a little lightheaded Denies any fever, chills, chest pain, SOB, vomiting,
headache, dizziness, urinary burning.
Past History
Past History
ED Past Medical History: Cancer (Cervical CA), CHF, Renal failure (Chronic kidney disease), Hypothyroidism and Other (Lyme, Barrets esophagus, Pancreatic malobsorption, KIdney stones, Anemia, stage V kidney disease, LBBB)
ED Past Surgical History: Orthopedic (Bunionectomy, ), Urological (Nephrostomy, Right ureteral reimplantation, Stents, PE Pediatric cather placed for dialysis) and Other (Parathyroidectomy, Hernia repair)
Social History
Tobacco: Non-smoker
Alcohol: None
Drug: None
Personal:
Living: with family
Employment: Employed (Pharm sales)
Family History
Family History: Other (History her father has a 'weak heart')
Review of Systems
Review of Systems
All Other Systems: ROS reviewed and negative except as documented in HPI and ROS
Constitutional: Reports no symptoms; Denies fever or chills
EENT: Reports no symptoms
Respiratory: Reports no symptoms; Denies cough or trouble breathing
Cardiac: Reports no symptoms; Denies chest pain
ABD/GI: Reports abdominal pain, nausea and diarrhea (Chronic); Denies vomiting
: Reports no symptoms; Denies dysuria, frequency or urgency
Musculoskeletal: Reports no symptoms
Skin: Reports no symptoms
Neurological: Reports other (Lightheaded); Denies dizzy or headache
Psychiatric: Reports no symptoms
Phy Exam
General Physical Exam
General Presentation: mild distress
General age: appears stated age
General Skin: warm and dry
General Habitus: cachetic
General Mental: alert
General Hydration: appears well hydrated
ENT Exam
ENT Exam: TM's normal, pharynx normal and neck supple
Eye Exam
Eye Exam: EOMI
Cardiovascular Exam
Cardiovascular Exam: regular rate/rhythm, no edema, no murmur and normal peripheral pulses
Pulmonary Exam
Pulmonary Exam: lungs clear, no respiratory distress, no rales, chest non tender, no crackles, no rhonchi, no wheezing and no cough
Gastrointestinal Exam
Gastrointestinal Exam: normal bowel sounds, soft, no organomegaly, no pulsatile mass, non distended and other (Left sided Pediatric dialysis catheter in place. )
Musculoskeletal Exam
Musculoskeletal Exam: full ROM and no edema
Skin Exam
Skin Exam: normal color, warm/dry, no petechia and other (Small incision clean and dry on the left abd with dermabond skin glue intact, Healing wound on the right lower medial aspect of the leg)
Psychiatric Exam
Psychiatric Exam: normal mood/affect
Course
Orders/Labs/Results
Orders:
Orders
12/13/23 23:00
Complete Blood Count/With Diff Urgent
Comprehensive Metabolic Panel Urgent
12/14/23 00:59
CT Abd/pel Without Iv Or Oral Urgent
Comment:
Reason For Exam: Pediatric Dialysis catheter plaed. Abd pain.
HYDROmorphone [Dilaudid] 1 mg IV NOW STA
12/14/23 01:07
Ondansetron Injectable [Zofran] 4 mg IV NOW STA
12/14/23 01:36
Lactic Acid Urgent
Abnormal Lab Results
12/14/23
01:36
WBC 4.3 L 10^3/uL
(4.8-10.8)
RBC 2.72 L 10^6/uL
(4.20-5.40)
Hgb 8.6 L g/dL
(12.0-16.0)
Hct 26.0 L %
(37.0-47.0)
MCH 31.6 H pg
(27.0-31.0)
Sodium 131 L mmol/L
(135-145)
BUN 25 H mg/dl
(7-17)
Creatinine 2.2 H mg/dL
(0.6-1.0)
Lactic Acid 2.1 H mmol/L
(0.7-2.0)
Total Protein 5.6 L g/dl
(6.3-8.2)
Albumin 3.1 L g/dl
(3.5-5.0)
12/14/23 01:36
12/14/23 01:36
WBC slightly low. H/h low ( Patient has anemia and goes up and down), Dehydration. Chronic renal failure, CR improved from prior, Lactiac acid 2.1, Total protein slightly low. Albumin slightly low.
Vital Signs
Initial and Last Documented VS:
Initial Vital Signs
Temp Pulse Resp BP Pulse Ox
97.9 F 62 18 107/65 100
12/13/23 22:54 12/13/23 22:54 12/13/23 22:54 12/13/23 22:54 12/13/23 22:54
Last Documented Vital Signs
Temp Pulse Resp BP Pulse Ox
97.9 F 62 18 99/56 100
12/13/23 22:54 12/13/23 22:54 12/13/23 22:54 12/14/23 02:19 12/14/23 02:21
MDM/Problems Addressed
Differential Diagnosis Includes:
Possible Surgical complication, Bowel obstruction
MDM/Problems Addressed:
This is a 53 year old female that comes in with c/o abd pain. States that on Thursday she has surgery for a pediatric dialysis catheter placed. States that tonight she started with abd pain and the pain moved to the right side. State that she
called Prime [employer] and was told to come to the ER as the catheter could have gotten dislodged and wrapped around her bowel.
Will check labs and CT scan.
Back into see patient. Reviewed labs and CT scan. Explained to patient that she can go home and follow up Tomorrow as scheduled with [facility] Prime [facility]. Patient requested more Dilaudid at this time. Will medicate and discharge home.
Chronic conditions affecting care: Previous abdomnial surgery and Kidney disease
Acute Exacerbation and/or Progression of Chronic Illness: Previous abdomnial surgery and Kidney disease
*Radiology
Radiology exam reviewed: radiology read reviewed (CT night hawk- Peritoneal dialysis catheter with smal subcutaneous emphysema along the catherer tract, may be postprocedural. No bowel obstruction. Normal gallbladder and appendix. Incidentals:
moderate to severe stool burden. Fecalized loops of small bowel suggestive of slow transit. No obstructive) and other (CT cont- uropathy. NO hepatic or pancreatic mass. No abdominal aortic aneurysm. No acute osseous abnormality. No acute abnormality
with in the visualized lungs. )
*Pulse Oximetry
Patient hypoxic: no
*EKG
Interpreted by ED Provider?: NA
Rate: EKG- N/A
*Unit Reactor Operator Interpretation
Rate: Unit Reactor Operator- N/A
*Critical Care Note
Total Time (30-74mins, 75-104mins- exclusive of procedures): Not Applicable
ED Attending Note
-
Portions of this chart may have been created with voice recognition software.� Occasional wrong word or��sound alike� substitutions may have occurred due to the inherent limitations of voice recognition software.
Discharge Plan
Departure
Patient Disposition: Home (Routine Discharge)
Date of Disposition: 12/14/23
Time of Disposition: 02:50
Patient with high blood pressure during this ER visit?: No
Condition: Good
Covid-19: Not Applicable
Discharge Problem:
Abdominal pain
Instructions: Abdominal Pain
Prescriptions:
No Action
acetaminophen [Tylenol Extra Strength] 500 mg Tablet
1,000 mg PO BIDPRN PRN (Reason: mild pain)
levothyroxine 50 mcg Tablet
50 mcg PO DAILY
sevelamer carbonate 800 mg Tablet
1,600 mg PO QPM
biotin 1,000 mcg Tablet,Chewable
1,000 mcg PO DAILY
Lokelma 10 gram Powder In Packet
10 g PO MOWEFR@0800
Patient Comments:
11/28/2023, per pt., they got samples of this med. from their [employer]; they mix a 10 gram packet with 3 grams of water per pt.
calcium carbonate 750 mg tablet
750 mg PO DAILY
calcium carbonate 750 mg tablet
1,500 mg PO QPM
calcium carbonate 750 mg tablet
1,500 mg PO QIDPRN PRN (Reason: heartburn)
Referrals:
UNKNOWN - PT NOT,INTERVIEWE [Family Provider] -
Activity Restrictions/Additional Instructions:
As discussed, your blood work shows that your WBC are slightly low and your Chronic renal failure. You have been given a copy of the CT report. Please follow up with [facility] physician tomorrow as scheduled. Use your pain medication that you
have at home. IF YOU HAVE ANY OTHER CONCERNS PLEASE RETURN TO THE EMERGENCY ROOM.
Interventions
Interventions:
*Risk Screen - Suicide Last Done: 12/13/23 22:54
*General Assessment Last Done: 12/13/23 22:54
*Neglect/Abuse Screening Last Done: 12/13/23 22:54
ED- Fall Risk Assessment Last Done: 12/14/23 02:00
*ED COVID-19 Vaccine History Last Done: 12/14/23 02:00
[facility] Assessment Last Done: 12/14/23 02:00
Discharge Date and Time
Print Language: MALAY
[2023-12-14] MEDS: ZOFRAN 4 MG IV (01:39)
[2023-12-14] MEDS: DILAUDID 1 MG IV ×2 (01:41→02:56)
[2023-12-14 01:52] LABS: % Basophils 1.4 % (0-2); % Eosinophils 3.9 % (0-6); % Immature Granulocytes 0.2 % (0-0.5); % Lymphocytes 36.9 % (20.5-51.1); % Monocytes 8.4 % (1.7-9.3); % Neutrophils 49.2 % (42.2-75.2); Absolute Basophils 0.1 10^3/uL (0-0.2); Absolute Eosinophils 0.2 10^3/uL (0-0.7); Absolute Lymphocytes 1.6 10^3/uL (1.2-3.4); Absolute Monocytes 0.4 10^3/uL (0.1-0.6); Absolute Neutrophils 2.1 10^3/uL (1.4-6.5); Hemoglobin 8.6 g/dL (12.0-16.0); Mean Corp Hgb Conc. 33.1 g/dL (33.0-37.0); Mean Corpuscular Hgb 31.6 pg (27.0-31.0); Mean Corpuscular Volume 95.6 fL (81.0-99.0); Mean Platelet Volume 9.3 fL (7.4-10.4); Nucleated Red Blood Cells % 0 %; Platelet Count 223 10^3/uL (130-400); Red Blood Cell Count 2.72 10^6/uL (4.20-5.40); Red Cell Dist. Width 13.3 % (11.5-14.5); White Blood Cell Count 4.3 10^3/uL (4.8-10.8)
[2023-12-14 01:59] VITALS: BMI 11.7
[2023-12-14 02:04] LABS: Lactic Acid 2.1 mmol/L (0.7-2.0)
[2023-12-14 02:05] LABS: ALT (SGPT) 17 U/L (0-35); AST (SGOT) 36 U/L (14-36); Albumin 3.1 g/dl (3.5-5.0); Alkaline Phosphatase 121 U/L (38-126); Blood Urea Nitrogen 25 mg/dl (7-17); Calcium 9.1 mg/dl (8.4-10.2); Carbon Dioxide 24 mmol/L (22-30); Chloride 100 mmol/L (98-107); Estimated Creatinine Clearance 14 ml/min; Glucose 85 mg/dl (70-99); Potassium 4.2 mmol/L (3.5-5.1); Sodium 131 mmol/L (135-145); Total Bilirubin 0.6 mg/dl (0.2-1.3); Total Protein 5.6 g/dl (6.3-8.2); eGFR 25.83
[2023-12-14 02:19] VITALS: BP 99/56
== END 2023-12-14 03:08 | disposition home or self-care (01) ==
LOC: EMR 22:51
PROVIDERS: Clinical Nurse Specialist Family Health; Student in an Organized Health Care Education/Training Program; EMERGENCY PHYSICIAN Emergency Medicine
DX: R10.9 Unspecified abdominal pain (principal); R11.0 Nausea; R42 Dizziness and giddiness; R19.7 Diarrhea, unspecified; N18.6 End stage renal disease; Z99.2 Dependence on renal dialysis
CPT/HCPCS: 99284; 96374; 96361; 96376; 74176; 80053; 83605; 85025

== ENCOUNTER → 2023-12-19 08:16 | Outpatient (REF) | payer BC, SELFPAY ==
[2023-12-19 09:01] LABS: Ionized Calcium 0.99 mMOL/L (1.15-1.33)
[2023-12-19 09:28] LABS: ALT (SGPT) 19 U/L (0-35); AST (SGOT) 32 U/L (14-36); Albumin 3.4 g/dl (3.5-5.0); Alkaline Phosphatase 106 U/L (38-126); Blood Urea Nitrogen 29 mg/dl (7-17); Calcium 8.2 mg/dl (8.4-10.2); Carbon Dioxide 33 mmol/L (22-30); Chloride 93 mmol/L (98-107); Direct Bilirubin 0.6 mg/dl (0.0-0.4); Glucose 77 mg/dl (70-99); Phosphorus 4.6 mg/dl (2.5-4.5); Potassium 4.3 mmol/L (3.5-5.1); Sodium 134 mmol/L (135-145); Total Bilirubin 0.6 mg/dl (0.2-1.3); Total Protein 5.9 g/dl (6.3-8.2); eGFR 25.83
[2023-12-21 18:45] LABS: Hepatitis B Surface Antigen Negative (Negative)
[2023-12-21 19:03] LABS: Hepatitis B Surface Antibody Negative; Hepatitis C Antibody Negative (Negative)
== END ==
LOC: REG 08:16
PROVIDERS: ATTENDING PHYSICIAN Internal Medicine Nephrology; FAMILY PHYSICIAN Internal Medicine
DX: N18.4 Chronic kidney disease, stage 4 (severe) (principal); N13.2 Hydronephrosis with renal and ureteral calculous obstruction; N20.0 Calculus of kidney; E43 Unspecified severe protein-calorie malnutrition; D63.1 Anemia in chronic kidney disease; E20.9 Hypoparathyroidism, unspecified
CPT/HCPCS: 36415; 80069; 80076; 82330; 86706; 86803; 87340

== ENCOUNTER → 2024-01-05 10:57 | Outpatient (REF) | payer BC, SELFPAY ==
[2024-01-05 11:05] VITALS: BMI 12.0
[2024-01-05 11:07] VITALS: BP 110/75; BP_SYST 70
[2024-01-05] MEDS: ANCEF 10 IV (11:32)
[2024-01-05 12:50] VITALS: BP 120/88; BP_SYST 71
[2024-01-05 13:05] VITALS: BP 118/84; BP_SYST 71
== END ==
LOC: RADI 10:57
PROVIDERS: ATTENDING PHYSICIAN Internal Medicine Nephrology
DX: N18.4 Chronic kidney disease, stage 4 (severe) (principal)
CPT/HCPCS: 36561; 76937; 77001; 99152; 99153; C1788

== ENCOUNTER → 2024-01-09 08:26 | Outpatient (REF) | payer BC, SELFPAY ==
[2024-01-09 09:01] LABS: Ionized Calcium 1.09 mMOL/L (1.15-1.33)
[2024-01-09 09:29] LABS: Albumin 3.2 g/dl (3.5-5.0); Blood Urea Nitrogen 19 mg/dl (7-17); Calcium 8.4 mg/dl (8.4-10.2); Carbon Dioxide 23 mmol/L (22-30); Chloride 103 mmol/L (98-107); Glucose 71 mg/dl (70-99); Magnesium 2.1 mg/dl (1.6-2.3); Phosphorus 4.3 mg/dl (2.5-4.5); Potassium 4.7 mmol/L (3.5-5.1); Sodium 132 mmol/L (135-145)
== END ==
LOC: REG 08:26
PROVIDERS: ATTENDING PHYSICIAN Internal Medicine; REFERRING PHYSICIAN Internal Medicine Nephrology
DX: E20.9 Hypoparathyroidism, unspecified (principal); N18.4 Chronic kidney disease, stage 4 (severe); N13.2 Hydronephrosis with renal and ureteral calculous obstruction; N20.0 Calculus of kidney; E43 Unspecified severe protein-calorie malnutrition; D63.1 Anemia in chronic kidney disease
CPT/HCPCS: 36415; 80069; 82330; 83735

== ENCOUNTER → 2024-01-14 11:12 | Outpatient (REF) | payer BC, SELFPAY ==
[2024-01-14 11:20] VITALS: BP 110/74; BP_SYST 73
== END ==
LOC: RADI 11:12
PROVIDERS: ATTENDING PHYSICIAN Internal Medicine Nephrology; FAMILY PHYSICIAN Internal Medicine
DX: T82.848A Pain due to vascular prosthetic devices, implants and grafts, initial encounter (principal); Y83.8 Other surgical procedures as the cause of abnormal reaction of the patient, or of later complication, without mention of misadventure at the time of the procedure
CPT/HCPCS: 36590; 77001

== ENCOUNTER → 2024-01-20 07:11 | Outpatient (REF) | payer BC, SELFPAY ==
[2024-01-20 07:52] LABS: Ionized Calcium 1.15 mMOL/L (1.15-1.33)
[2024-01-20 08:06] LABS: ALT (SGPT) 50 U/L (0-35); AST (SGOT) 35 U/L (14-36); Albumin 3.2 g/dl (3.5-5.0); Alkaline Phosphatase 105 U/L (38-126); Blood Urea Nitrogen 18 mg/dl (7-17); Calcium 8.7 mg/dl (8.4-10.2); Carbon Dioxide 25 mmol/L (22-30); Chloride 100 mmol/L (98-107); Glucose 79 mg/dl (70-99); Iron 32 ug/dl (37-170); Magnesium 2.1 mg/dl (1.6-2.3); Phosphorus 5.4 mg/dl (2.5-4.5); Potassium 4.9 mmol/L (3.5-5.1); Sodium 132 mmol/L (135-145); Total Bilirubin 0.5 mg/dl (0.2-1.3); Total Protein 5.8 g/dl (6.3-8.2); eGFR 24.49
[2024-01-20 08:15] LABS: Percent Saturation 10 % (20-50); Total Iron Binding Capacity 292 ug/dl (265-497)
[2024-01-20 08:33] LABS: Intact PTH < 3.4 pg/ml (13.6-85.8)
[2024-01-20 08:38] LABS: Ferritin 6.6 ng/ml (11.1-264.0)
== END ==
LOC: REG 07:11
PROVIDERS: ATTENDING PHYSICIAN Internal Medicine Nephrology; FAMILY PHYSICIAN Internal Medicine; OTHER PHYSICIAN Internal Medicine Endocrinology, Diabetes & Metabolism; REFERRING PHYSICIAN Internal Medicine
DX: N20.0 Calculus of kidney (principal); N13.2 Hydronephrosis with renal and ureteral calculous obstruction; N18.5 Chronic kidney disease, stage 5; E43 Unspecified severe protein-calorie malnutrition; N17.9 Acute kidney failure, unspecified; E87.5 Hyperkalemia; E83.39 Other disorders of phosphorus metabolism
CPT/HCPCS: 36415; 80053; 82330; 82728; 83540; 83550; 83735; 83970; 84100

== ENCOUNTER → 2024-01-25 06:56 | Outpatient (REF) | payer BC, SELFPAY ==
[2024-01-25 07:59] LABS: % Basophils 1.6 % (0-2); % Eosinophils 10.1 % (0-6); % Immature Granulocytes 0.3 % (0-0.5); % Lymphocytes 26.4 % (20.5-51.1); % Monocytes 7.3 % (1.7-9.3); % Neutrophils 54.3 % (42.2-75.2); Absolute Basophils 0.1 10^3/uL (0-0.2); Absolute Eosinophils 0.6 10^3/uL (0-0.7); Absolute Lymphocytes 1.5 10^3/uL (1.2-3.4); Absolute Monocytes 0.4 10^3/uL (0.1-0.6); Absolute Neutrophils 3.1 10^3/uL (1.4-6.5); Hematocrit 27.2 % (37.0-47.0); Hemoglobin 8.9 g/dL (12.0-16.0); Mean Corp Hgb Conc. 32.7 g/dL (33.0-37.0); Mean Corpuscular Hgb 31.6 pg (27.0-31.0); Mean Corpuscular Volume 96.5 fL (81.0-99.0); Mean Platelet Volume 9.1 fL (7.4-10.4); Nucleated Red Blood Cells % 0 %; Platelet Count 252 10^3/uL (130-400); Red Blood Cell Count 2.82 10^6/uL (4.20-5.40); Red Cell Dist. Width 13.2 % (11.5-14.5); White Blood Cell Count 5.7 10^3/uL (4.8-10.8)
[2024-01-25 08:09] LABS: Albumin 3.3 g/dl (3.5-5.0); Blood Urea Nitrogen 20 mg/dl (7-17); Calcium 10.8 mg/dl (8.4-10.2); Carbon Dioxide 26 mmol/L (22-30); Chloride 101 mmol/L (98-107); Glucose 82 mg/dl (70-99); Iron 81 ug/dl (37-170); Magnesium 2.1 mg/dl (1.6-2.3); Potassium 4.9 mmol/L (3.5-5.1); Sodium 134 mmol/L (135-145); eGFR 23.27
[2024-01-25 08:18] LABS: Percent Saturation 27 % (20-50); Total Iron Binding Capacity 297 ug/dl (265-497)
[2024-01-25 09:09] LABS: Ferritin 6.9 ng/ml (11.1-264.0)
[2024-01-25 10:13] LABS: Vitamin D, 25-OH*** 34.1 ng/mL (30-80)
[2024-01-26 12:20] LABS: Intact PTH < 3.4 pg/ml (13.6-85.8)
== END ==
LOC: REG 06:56
PROVIDERS: ATTENDING PHYSICIAN Internal Medicine Nephrology; FAMILY PHYSICIAN Internal Medicine
DX: N20.0 Calculus of kidney (principal); N18.4 Chronic kidney disease, stage 4 (severe); D63.1 Anemia in chronic kidney disease; N13.2 Hydronephrosis with renal and ureteral calculous obstruction; E43 Unspecified severe protein-calorie malnutrition; N17.9 Acute kidney failure, unspecified; E87.5 Hyperkalemia; E83.39 Other disorders of phosphorus metabolism
CPT/HCPCS: 36415; 74176; 80069; 82306; 82728; 83540; 83550; 83735; 83970; 85025

== ENCOUNTER → 2024-02-09 07:58 | Outpatient (REF) | payer BC, SELFPAY ==
[2024-02-09 08:34] LABS: % Basophils 1.1 % (0-2); % Immature Granulocytes 0.3 % (0-0.5); % Lymphocytes 29.1 % (20.5-51.1); % Monocytes 8.1 % (1.7-9.3); % Neutrophils 54.4 % (42.2-75.2); Absolute Eosinophils 0.3 10^3/uL (0-0.7); Absolute Lymphocytes 1.1 10^3/uL (1.2-3.4); Absolute Monocytes 0.3 10^3/uL (0.1-0.6); Hematocrit 24.7 % (37.0-47.0); Mean Corp Hgb Conc. 32.4 g/dL (33.0-37.0); Mean Corpuscular Hgb 30.2 pg (27.0-31.0); Mean Corpuscular Volume 93.2 fL (81.0-99.0); Nucleated Red Blood Cells % 0 %; Platelet Count 245 10^3/uL (130-400); Red Blood Cell Count 2.65 10^6/uL (4.20-5.40); Red Cell Dist. Width 13.3 % (11.5-14.5); White Blood Cell Count 3.7 10^3/uL (4.8-10.8)
[2024-02-09 08:42] LABS: Albumin 3.2 g/dl (3.5-5.0); Blood Urea Nitrogen 12 mg/dl (7-17); Calcium 9.1 mg/dl (8.4-10.2); Carbon Dioxide 22 mmol/L (22-30); Chloride 103 mmol/L (98-107); Glucose 88 mg/dl (70-99); Iron 32 ug/dl (37-170); Magnesium 1.8 mg/dl (1.6-2.3); Phosphorus 4.7 mg/dl (2.5-4.5); Potassium 4.5 mmol/L (3.5-5.1); Sodium 134 mmol/L (135-145); eGFR 32.86
[2024-02-09 08:52] LABS: Percent Saturation 10 % (20-50); Total Iron Binding Capacity 314 ug/dl (265-497)
[2024-02-09 09:01] LABS: Free T4 1.32 ng/dl (0.78-2.19)
[2024-02-09 09:07] LABS: Intact PTH < 3.4 pg/ml (13.6-85.8)
[2024-02-09 09:15] LABS: TSH < 0.02 uIU/ml (0.47-4.68)
[2024-02-09 09:16] LABS: Vitamin D, 25-OH*** 50.1 ng/mL (30-80)
[2024-02-09 09:19] LABS: Ferritin 5.8 ng/ml (11.1-264.0)
== END ==
LOC: REG 07:58
PROVIDERS: ATTENDING PHYSICIAN Internal Medicine Nephrology; FAMILY PHYSICIAN Internal Medicine
DX: N20.0 Calculus of kidney (principal); N18.4 Chronic kidney disease, stage 4 (severe); D63.1 Anemia in chronic kidney disease
CPT/HCPCS: 36415; 80069; 82306; 82728; 83540; 83550; 83735; 83970; 84439; 84443; 85025

== ENCOUNTER → 2024-02-15 07:34 | Outpatient (REF) | payer BC, SELFPAY ==
[2024-02-15 08:09] LABS: % Eosinophils 6.1 % (0-6); % Immature Granulocytes 0.2 % (0-0.5); % Lymphocytes 31.9 % (20.5-51.1); % Monocytes 9.6 % (1.7-9.3); % Neutrophils 51.2 % (42.2-75.2); Absolute Eosinophils 0.3 10^3/uL (0-0.7); Absolute Lymphocytes 1.3 10^3/uL (1.2-3.4); Absolute Monocytes 0.4 10^3/uL (0.1-0.6); Absolute Neutrophils 2.1 10^3/uL (1.4-6.5); Hematocrit 26.3 % (37.0-47.0); Hemoglobin 8.3 g/dL (12.0-16.0); Mean Corp Hgb Conc. 31.6 g/dL (33.0-37.0); Mean Corpuscular Hgb 29.9 pg (27.0-31.0); Mean Corpuscular Volume 94.6 fL (81.0-99.0); Mean Platelet Volume 9.2 fL (7.4-10.4); Nucleated Red Blood Cells % 0 %; Platelet Count 227 10^3/uL (130-400); Red Blood Cell Count 2.78 10^6/uL (4.20-5.40); Red Cell Dist. Width 13.1 % (11.5-14.5); White Blood Cell Count 4.1 10^3/uL (4.8-10.8)
[2024-02-15 08:21] LABS: Albumin 3.2 g/dl (3.5-5.0); Blood Urea Nitrogen 16 mg/dl (7-17); Calcium 9.1 mg/dl (8.4-10.2); Carbon Dioxide 24 mmol/L (22-30); Chloride 102 mmol/L (98-107); Glucose 88 mg/dl (70-99); Iron 42 ug/dl (37-170); Magnesium 1.8 mg/dl (1.6-2.3); Phosphorus 5.3 mg/dl (2.5-4.5); Potassium 4.2 mmol/L (3.5-5.1); Sodium 133 mmol/L (135-145)
[2024-02-15 08:30] LABS: Percent Saturation 13 % (20-50); Total Iron Binding Capacity 312 ug/dl (265-497)
[2024-02-15 08:58] LABS: Ferritin 5.4 ng/ml (11.1-264.0)
== END ==
LOC: REG 07:34
PROVIDERS: ATTENDING PHYSICIAN Internal Medicine Hematology & Oncology; FAMILY PHYSICIAN Internal Medicine; REFERRING PHYSICIAN Internal Medicine Nephrology
DX: D64.9 Anemia, unspecified (principal); D63.1 Anemia in chronic kidney disease; M81.8 Other osteoporosis without current pathological fracture; R63.4 Abnormal weight loss; D75.89 Other specified diseases of blood and blood-forming organs; N18.4 Chronic kidney disease, stage 4 (severe); N20.0 Calculus of kidney; N13.2 Hydronephrosis with renal and ureteral calculous obstruction; E43 Unspecified severe protein-calorie malnutrition
CPT/HCPCS: 36415; 80069; 82728; 83540; 83550; 83735; 85025

== ENCOUNTER → 2024-02-25 09:00 | Outpatient (REF) | payer BC, SELFPAY ==
[2024-02-25 09:56] LABS: Ionized Calcium 1.25 mMOL/L (1.15-1.33)
[2024-02-25 09:58] LABS: % Basophils 0.9 % (0-2); % Eosinophils 3.5 % (0-6); % Immature Granulocytes 0.5 % (0-0.5); % Lymphocytes 28.6 % (20.5-51.1); % Monocytes 9.8 % (1.7-9.3); % Neutrophils 56.7 % (42.2-75.2); Absolute Eosinophils 0.2 10^3/uL (0-0.7); Absolute Lymphocytes 1.2 10^3/uL (1.2-3.4); Absolute Monocytes 0.4 10^3/uL (0.1-0.6); Absolute Neutrophils 2.4 10^3/uL (1.4-6.5); Hematocrit 26.5 % (37.0-47.0); Hemoglobin 8.3 g/dL (12.0-16.0); Mean Corp Hgb Conc. 31.3 g/dL (33.0-37.0); Mean Corpuscular Hgb 28.8 pg (27.0-31.0); Mean Platelet Volume 9.2 fL (7.4-10.4); Nucleated Red Blood Cells % 0 %; Platelet Count 243 10^3/uL (130-400); Red Blood Cell Count 2.88 10^6/uL (4.20-5.40); Red Cell Dist. Width 12.9 % (11.5-14.5); White Blood Cell Count 4.3 10^3/uL (4.8-10.8)
[2024-02-25 10:37] LABS: ALT (SGPT) 37 U/L (0-35); AST (SGOT) 34 U/L (14-36); Albumin 3.4 g/dl (3.5-5.0); Alkaline Phosphatase 104 U/L (38-126); Blood Urea Nitrogen 15 mg/dl (7-17); Calcium 9.7 mg/dl (8.4-10.2); Carbon Dioxide 24 mmol/L (22-30); Chloride 101 mmol/L (98-107); Glucose 92 mg/dl (70-99); Iron 48 ug/dl (37-170); Phosphorus 5.1 mg/dl (2.5-4.5); Potassium 4.6 mmol/L (3.5-5.1); Sodium 134 mmol/L (135-145); Total Bilirubin 0.5 mg/dl (0.2-1.3); eGFR 34.98
[2024-02-25 10:46] LABS: Percent Saturation 14 % (20-50); Total Iron Binding Capacity 334 ug/dl (265-497)
[2024-02-25 14:49] LABS: Intact PTH < 3.4 pg/ml (13.6-85.8)
[2024-02-25 15:10] LABS: Free T4 1.31 ng/dl (0.78-2.19)
[2024-02-25 15:24] LABS: TSH < 0.02 uIU/ml (0.47-4.68)
[2024-02-25 15:28] LABS: Ferritin 5.2 ng/ml (11.1-264.0)
[2024-02-25 16:00] LABS: Folate > 20.0 ng/ml (2.76-20); Vitamin B12 > 1000 pg/ml (239-931)
== END ==
LOC: REG 09:00
PROVIDERS: ATTENDING PHYSICIAN Internal Medicine; FAMILY PHYSICIAN Internal Medicine Hematology & Oncology; OTHER PHYSICIAN Internal Medicine Endocrinology, Diabetes & Metabolism; OTHER PHYSICIAN Internal Medicine Gastroenterology; OTHER PHYSICIAN Internal Medicine Nephrology; REFERRING PHYSICIAN Internal Medicine Endocrinology, Diabetes & Metabolism
DX: E03.9 Hypothyroidism, unspecified (principal); D50.9 Iron deficiency anemia, unspecified; N18.4 Chronic kidney disease, stage 4 (severe); N13.2 Hydronephrosis with renal and ureteral calculous obstruction; N20.0 Calculus of kidney; E43 Unspecified severe protein-calorie malnutrition; D63.1 Anemia in chronic kidney disease; E20.9 Hypoparathyroidism, unspecified; D64.9 Anemia, unspecified; M81.8 Other osteoporosis without current pathological fracture; R63.4 Abnormal weight loss; D75.89 Other specified diseases of blood and blood-forming organs; R64 Cachexia; R10.33 Periumbilical pain; D50.0 Iron deficiency anemia secondary to blood loss (chronic)
CPT/HCPCS: 36415; 74019; 80053; 82330; 82607; 82728; 82746; 83540; 83550; 83970; 84100; 84439; 84443; 85025

== ENCOUNTER → 2024-03-08 06:25 | Day surgery (SDC) | payer BC, SELFPAY | LOC: GI 06:25 | PROVIDERS: ATTENDING PHYSICIAN Internal Medicine | DX: D50.9 Iron deficiency anemia, unspecified (principal); K22.89 Other specified disease of esophagus; R19.7 Diarrhea, unspecified; K44.9 Diaphragmatic hernia without obstruction or gangrene; R63.4 Abnormal weight loss; K29.50 Unspecified chronic gastritis without bleeding; K31.A0 Gastric intestinal metaplasia, unspecified; K20.90 Esophagitis, unspecified without bleeding | CPT/HCPCS: 43239; 88305; 88313; 88342 ==

== ENCOUNTER → 2024-03-11 07:14 | Outpatient (REF) | payer BC, SELFPAY ==
[2024-03-11 07:47] LABS: % Basophils 0.9 % (0-2); % Eosinophils 5.9 % (0-6); % Immature Granulocytes 0.2 % (0-0.5); % Lymphocytes 34.5 % (20.5-51.1); % Monocytes 7.2 % (1.7-9.3); % Neutrophils 51.3 % (42.2-75.2); Absolute Eosinophils 0.3 10^3/uL (0-0.7); Absolute Lymphocytes 1.6 10^3/uL (1.2-3.4); Absolute Monocytes 0.3 10^3/uL (0.1-0.6); Absolute Neutrophils 2.4 10^3/uL (1.4-6.5); Hematocrit 26.9 % (37.0-47.0); Hemoglobin 8.7 g/dL (12.0-16.0); Mean Corp Hgb Conc. 32.3 g/dL (33.0-37.0); Mean Corpuscular Hgb 28.8 pg (27.0-31.0); Mean Corpuscular Volume 89.1 fL (81.0-99.0); Mean Platelet Volume 9.1 fL (7.4-10.4); Nucleated Red Blood Cells % 0 %; Platelet Count 262 10^3/uL (130-400); Red Blood Cell Count 3.02 10^6/uL (4.20-5.40); Red Cell Dist. Width 13.4 % (11.5-14.5); White Blood Cell Count 4.6 10^3/uL (4.8-10.8)
[2024-03-11 07:54] LABS: Ionized Calcium 1.43 mMOL/L (1.15-1.33)
[2024-03-11 08:04] LABS: ALT (SGPT) 76 U/L (0-35); AST (SGOT) 149 U/L (14-36); Albumin 3.7 g/dl (3.5-5.0); Alkaline Phosphatase 93 U/L (38-126); Blood Urea Nitrogen 14 mg/dl (7-17); Calcium 11.1 mg/dl (8.4-10.2); Carbon Dioxide 28 mmol/L (22-30); Chloride 97 mmol/L (98-107); Glucose 85 mg/dl (70-99); Phosphorus 4.4 mg/dl (2.5-4.5); Sodium 132 mmol/L (135-145); Total Bilirubin 0.5 mg/dl (0.2-1.3); Total Protein 5.8 g/dl (6.3-8.2); eGFR 27.14
[2024-03-11 08:56] LABS: Ferritin 5.5 ng/ml (11.1-264.0)
[2024-03-11 10:38] LABS: Folate > 20.0 ng/ml (2.76-20); Vitamin B12 > 1000 pg/ml (239-931)
[2024-03-12 10:54] LABS: Intact PTH < 3.4 pg/ml (13.6-85.8)
== END ==
LOC: REG 07:14
PROVIDERS: ATTENDING PHYSICIAN Internal Medicine Nephrology; FAMILY PHYSICIAN Internal Medicine
DX: E20.9 Hypoparathyroidism, unspecified (principal); D64.9 Anemia, unspecified; D63.1 Anemia in chronic kidney disease; M81.8 Other osteoporosis without current pathological fracture; R63.4 Abnormal weight loss; D75.89 Other specified diseases of blood and blood-forming organs; N18.4 Chronic kidney disease, stage 4 (severe)
CPT/HCPCS: 36415; 80053; 82330; 82607; 82728; 82746; 83970; 84100; 85025

== ENCOUNTER → 2024-03-12 07:35 | Outpatient (REF) | payer BC, SELFPAY ==
[2024-03-12 09:11] LABS: ALT (SGPT) 77 U/L (0-35); AST (SGOT) 120 U/L (14-36); Albumin 3.6 g/dl (3.5-5.0); Alkaline Phosphatase 112 U/L (38-126); Blood Urea Nitrogen 14 mg/dl (7-17); Calcium 10.4 mg/dl (8.4-10.2); Carbon Dioxide 28 mmol/L (22-30); Chloride 96 mmol/L (98-107); Creatine Phosphokinase 975 U/L (30-135); Glucose 86 mg/dl (70-99); Potassium 4.5 mmol/L (3.5-5.1); Sodium 131 mmol/L (135-145); Total Bilirubin 0.5 mg/dl (0.2-1.3); Total Protein 6.2 g/dl (6.3-8.2); eGFR 27.14
[2024-03-14 18:32] LABS: Hepatitis B Surface Antigen Negative (Negative)
[2024-03-14 18:38] LABS: Hepatitis A IgM Antibody Negative (Negative); Hepatitis B Core Ab, IgM Negative (Negative)
[2024-03-14 18:50] LABS: Hepatitis C Antibody Negative (Negative)
[2024-03-14 22:49] LABS: Hepatitis B Surface Antibody Indeterminate
== END ==
LOC: REG 07:35
PROVIDERS: ATTENDING PHYSICIAN Internal Medicine; FAMILY PHYSICIAN Internal Medicine
DX: R74.8 Abnormal levels of other serum enzymes (principal)
CPT/HCPCS: 36415; 80053; 82550; 86705; 86706; 86709; 86803; 87340

== ENCOUNTER → 2024-03-16 06:28 | Outpatient (REF) | payer BC, SELFPAY ==
[2024-03-16 07:12] LABS: % Basophils 1.4 % (0-2); % Eosinophils 5.1 % (0-6); % Immature Granulocytes 0.3 % (0-0.5); % Lymphocytes 35.9 % (20.5-51.1); % Monocytes 7.6 % (1.7-9.3); % Neutrophils 49.7 % (42.2-75.2); Absolute Basophils 0.1 10^3/uL (0-0.2); Absolute Eosinophils 0.2 10^3/uL (0-0.7); Absolute Lymphocytes 1.3 10^3/uL (1.2-3.4); Absolute Monocytes 0.3 10^3/uL (0.1-0.6); Absolute Neutrophils 1.8 10^3/uL (1.4-6.5); Hematocrit 23.9 % (37.0-47.0); Hemoglobin 7.8 g/dL (12.0-16.0); Mean Corp Hgb Conc. 32.6 g/dL (33.0-37.0); Mean Corpuscular Hgb 28.4 pg (27.0-31.0); Mean Corpuscular Volume 86.9 fL (81.0-99.0); Mean Platelet Volume 9.4 fL (7.4-10.4); Nucleated Red Blood Cells % 0 %; Platelet Count 269 10^3/uL (130-400); Red Blood Cell Count 2.75 10^6/uL (4.20-5.40); Red Cell Dist. Width 13.6 % (11.5-14.5); White Blood Cell Count 3.7 10^3/uL (4.8-10.8)
[2024-03-16 07:31] LABS: ALT (SGPT) 48 U/L (0-35); AST (SGOT) 43 U/L (14-36); Albumin 3.4 g/dl (3.5-5.0); Alkaline Phosphatase 86 U/L (38-126); Blood Urea Nitrogen 14 mg/dl (7-17); Calcium 9.1 mg/dl (8.4-10.2); Carbon Dioxide 25 mmol/L (22-30); Chloride 98 mmol/L (98-107); Creatine Phosphokinase 233 U/L (30-135); Direct Bilirubin 0.4 mg/dl (0.0-0.4); Glucose 79 mg/dl (70-99); Iron 33 ug/dl (37-170); Phosphorus 5.1 mg/dl (2.5-4.5); Potassium 4.4 mmol/L (3.5-5.1); Sodium 130 mmol/L (135-145); Total Bilirubin 0.5 mg/dl (0.2-1.3); Total Protein 5.7 g/dl (6.3-8.2); eGFR 28.78
[2024-03-16 07:34] LABS: Erythrocyte Sed Rate 20 mm/hour (0-20)
[2024-03-16 07:41] LABS: Percent Saturation 10 % (20-50); Total Iron Binding Capacity 319 ug/dl (265-497)
[2024-03-16 07:47] LABS: C-Reactive Protein < 5.00 mg/L (0.0-10.00)
[2024-03-16 08:04] LABS: Vitamin D, 25-OH*** 45.4 ng/mL (30-80)
[2024-03-16 08:22] LABS: Ferritin 4.6 ng/ml (11.1-264.0)
[2024-03-16 09:29] LABS: Intact PTH < 3.4 pg/ml (13.6-85.8)
[2024-03-17 16:16] LABS: Mitochondrial M2 Ab, IgG 4.5 Units (0.0-24.9)
[2024-03-17 18:15] LABS: Aldolase 2.2 U/L (1.2-7.6)
[2024-03-17 18:19] LABS: Soluble Liver Antigen Ab 1.9 U (0.0-24.9)
[2024-03-17 22:32] LABS: ANA, IgG Reflex to HEp-2 Detected (None Detected)
[2024-03-18 09:45] LABS: Lyme Antibody Screen, EIA Negative (Negative)
== END ==
LOC: REG 06:28
PROVIDERS: ATTENDING PHYSICIAN Internal Medicine; FAMILY PHYSICIAN Internal Medicine Nephrology; REFERRING PHYSICIAN Internal Medicine Hematology & Oncology
DX: R63.4 Abnormal weight loss (principal); R79.89 Other specified abnormal findings of blood chemistry; M62.82 Rhabdomyolysis; E03.9 Hypothyroidism, unspecified; R53.1 Weakness
CPT/HCPCS: 36415; 80069; 80076; 82085; 82306; 82550; 82728; 83516; 83540; 83550; 83735; 83970; 85025; 85652; 86038; 86039; 86140; 86381; 86618

== ENCOUNTER → 2024-03-22 12:07 | Outpatient (REF) | payer BC, SELFPAY ==
[2024-03-22 12:53] LABS: % Basophils 0.9 % (0-2); % Immature Granulocytes 0.2 % (0-0.5); % Lymphocytes 29.5 % (20.5-51.1); % Monocytes 7.7 % (1.7-9.3); % Neutrophils 59.7 % (42.2-75.2); Absolute Eosinophils 0.1 10^3/uL (0-0.7); Absolute Lymphocytes 1.3 10^3/uL (1.2-3.4); Absolute Monocytes 0.3 10^3/uL (0.1-0.6); Absolute Neutrophils 2.7 10^3/uL (1.4-6.5); Hematocrit 25.6 % (37.0-47.0); Hemoglobin 8.4 g/dL (12.0-16.0); Mean Corp Hgb Conc. 32.8 g/dL (33.0-37.0); Mean Corpuscular Hgb 28.7 pg (27.0-31.0); Mean Corpuscular Volume 87.4 fL (81.0-99.0); Nucleated Red Blood Cells % 0 %; Platelet Count 337 10^3/uL (130-400); Red Blood Cell Count 2.93 10^6/uL (4.20-5.40); Red Cell Dist. Width 13.5 % (11.5-14.5); White Blood Cell Count 4.4 10^3/uL (4.8-10.8)
[2024-03-22 13:00] LABS: Albumin 3.5 g/dl (3.5-5.0); Blood Urea Nitrogen 17 mg/dl (7-17); Calcium 9.3 mg/dl (8.4-10.2); Carbon Dioxide 24 mmol/L (22-30); Chloride 99 mmol/L (98-107); Glucose 85 mg/dl (70-99); Iron 56 ug/dl (37-170); Phosphorus 4.8 mg/dl (2.5-4.5); Potassium 4.7 mmol/L (3.5-5.1); Sodium 131 mmol/L (135-145); eGFR 24.34
[2024-03-22 13:09] LABS: Percent Saturation 17 % (20-50); Total Iron Binding Capacity 314 ug/dl (265-497)
[2024-03-22 13:58] LABS: Ferritin 3.2 ng/ml (11.1-264.0)
[2024-03-24 15:58] LABS: Rheumatoid Agglutinin Less Than 10 IU (<10 IU)
[2024-03-25 02:22] LABS: ds-DNA Ab, IgG Reflex To Titer 1 IU (0-24)
== END ==
LOC: REG 12:07
PROVIDERS: ATTENDING PHYSICIAN Internal Medicine Nephrology; FAMILY PHYSICIAN Internal Medicine; REFERRING PHYSICIAN Internal Medicine Hematology & Oncology
DX: N18.4 Chronic kidney disease, stage 4 (severe) (principal); N13.2 Hydronephrosis with renal and ureteral calculous obstruction; N20.0 Calculus of kidney; E43 Unspecified severe protein-calorie malnutrition; D63.1 Anemia in chronic kidney disease; D64.9 Anemia, unspecified; M81.8 Other osteoporosis without current pathological fracture; R63.4 Abnormal weight loss; D75.89 Other specified diseases of blood and blood-forming organs; R64 Cachexia; R76.8 Other specified abnormal immunological findings in serum
CPT/HCPCS: 36415; 80069; 82728; 83540; 83550; 85025; 86225; 86235; 86430

== ENCOUNTER 2024-03-23 09:08 | Outpatient (RCR) | payer BC, SELFPAY ==
[2024-03-23 09:26] VITALS: BP 99/61
[2024-03-23] MEDS: CORTROSYN 1 MG IV (10:10)
[2024-03-23 10:21] VITALS: BP 90/54
[2024-03-23 12:01] LABS: ACTH Stim Cortisol 0 Min 21.5 ug/dl
[2024-03-23 13:40] LABS: ACTH Stim Cortisol 60 Min 43.9 ug/dl
[2024-03-23 13:41] LABS: ACTH Stim Cortisol 30 Min 38.8 ug/dl
== END 2024-03-24 12:01 | disposition home or self-care (01) ==
LOC: OID 09:08
PROVIDERS: ATTENDING PHYSICIAN Internal Medicine
DX: R79.89 Other specified abnormal findings of blood chemistry (principal); M62.82 Rhabdomyolysis; R53.1 Weakness; R63.4 Abnormal weight loss
CPT/HCPCS: 36415; 82533; 96374

== ENCOUNTER → 2024-04-11 06:27 | Outpatient (REF) | payer BC, SELFPAY ==
[2024-04-11 06:57] LABS: % Basophils 0.9 % (0-2); % Immature Granulocytes 0.6 % (0-0.5); % Lymphocytes 31.6 % (20.5-51.1); % Monocytes 7.7 % (1.7-9.3); % Neutrophils 57.2 % (42.2-75.2); Absolute Basophils 0.1 10^3/uL (0-0.2); Absolute Eosinophils 0.1 10^3/uL (0-0.7); Absolute Lymphocytes 1.7 10^3/uL (1.2-3.4); Absolute Monocytes 0.4 10^3/uL (0.1-0.6); Absolute Neutrophils 3.1 10^3/uL (1.4-6.5); Hematocrit 25.9 % (37.0-47.0); Hemoglobin 8.3 g/dL (12.0-16.0); Mean Corpuscular Hgb 26.9 pg (27.0-31.0); Mean Corpuscular Volume 84.1 fL (81.0-99.0); Mean Platelet Volume 8.6 fL (7.4-10.4); Nucleated Red Blood Cells % 0 %; Platelet Count 317 10^3/uL (130-400); Red Blood Cell Count 3.08 10^6/uL (4.20-5.40); Red Cell Dist. Width 14.5 % (11.5-14.5); White Blood Cell Count 5.5 10^3/uL (4.8-10.8)
[2024-04-11 07:13] LABS: ALT (SGPT) 28 U/L (0-35); AST (SGOT) 36 U/L (14-36); Albumin 3.7 g/dl (3.5-5.0); Alkaline Phosphatase 84 U/L (38-126); Blood Urea Nitrogen 23 mg/dl (7-17); Calcium 10.8 mg/dl (8.4-10.2); Carbon Dioxide 28 mmol/L (22-30); Chloride 93 mmol/L (98-107); Creatine Phosphokinase 109 U/L (30-135); Direct Bilirubin 0.3 mg/dl (0.0-0.4); Glucose 86 mg/dl (70-99); Iron 32 ug/dl (37-170); Phosphorus 5.4 mg/dl (2.5-4.5); Potassium 4.3 mmol/L (3.5-5.1); Sodium 128 mmol/L (135-145); Total Bilirubin 0.4 mg/dl (0.2-1.3); Total Protein 6.1 g/dl (6.3-8.2); eGFR 20.08
[2024-04-11 07:22] LABS: Percent Saturation 10 % (20-50); Total Iron Binding Capacity 302 ug/dl (265-497)
[2024-04-11 08:02] LABS: Ferritin 4.5 ng/ml (11.1-264.0)
== END ==
LOC: REG 06:27
PROVIDERS: ATTENDING PHYSICIAN Internal Medicine Nephrology; FAMILY PHYSICIAN Internal Medicine; REFERRING PHYSICIAN Internal Medicine Hematology & Oncology
DX: N20.0 Calculus of kidney (principal); N13.2 Hydronephrosis with renal and ureteral calculous obstruction; N18.4 Chronic kidney disease, stage 4 (severe); E43 Unspecified severe protein-calorie malnutrition; N17.9 Acute kidney failure, unspecified; E87.5 Hyperkalemia; E83.39 Other disorders of phosphorus metabolism; D63.1 Anemia in chronic kidney disease; R63.4 Abnormal weight loss; R79.89 Other specified abnormal findings of blood chemistry; M62.82 Rhabdomyolysis; E03.9 Hypothyroidism, unspecified; R53.1 Weakness; D64.9 Anemia, unspecified; D75.89 Other specified diseases of blood and blood-forming organs; R64 Cachexia
CPT/HCPCS: 36415; 80069; 80076; 82550; 82728; 83540; 83550; 85025

== ENCOUNTER → 2024-04-14 07:01 | Outpatient (REF) | payer BC, SELFPAY ==
[2024-04-14 08:06] LABS: Albumin 3.5 g/dl (3.5-5.0); Blood Urea Nitrogen 24 mg/dl (7-17); Carbon Dioxide 26 mmol/L (22-30); Chloride 94 mmol/L (98-107); Glucose 77 mg/dl (70-99); Phosphorus 4.5 mg/dl (2.5-4.5); Potassium 4.3 mmol/L (3.5-5.1); Sodium 127 mmol/L (135-145); eGFR 22.02
[2024-04-14 08:12] LABS: Urine Albumin Trace (Neg - Trace); Urine Bilirubin Negative (Negative); Urine Character Slightly Cloudy (Clear); Urine Color Yellow; Urine Glucose Negative (Negative); Urine Ketone Negative (Negative); Urine Leukocyte 2+ (Negative); Urine Nitrite Negative (Negative); Urine Occult Blood 3+ (Negative); Urine Urobilinogen Negative (Neg - 1+)
[2024-04-14 08:28] LABS: Urine Bacteria Many (Negative); Urine White Cell 80-90 /HPF (0-5)
== END ==
LOC: RAD 07:01
PROVIDERS: ATTENDING PHYSICIAN Internal Medicine Nephrology; FAMILY PHYSICIAN Internal Medicine
DX: N18.4 Chronic kidney disease, stage 4 (severe) (principal); N13.2 Hydronephrosis with renal and ureteral calculous obstruction; N20.0 Calculus of kidney; E43 Unspecified severe protein-calorie malnutrition; D63.1 Anemia in chronic kidney disease
CPT/HCPCS: 36415; 74176; 80069; 81003; 81015

== ENCOUNTER → 2024-04-23 08:41 | Outpatient (REF) | payer BC, SELFPAY ==
[2024-04-23 09:04] LABS: % Basophils 1.3 % (0-2); % Eosinophils 5.1 % (0-6); % Lymphocytes 31.1 % (20.5-51.1); % Monocytes 7.4 % (1.7-9.3); % Neutrophils 55.1 % (42.2-75.2); Absolute Basophils 0.1 10^3/uL (0-0.2); Absolute Eosinophils 0.2 10^3/uL (0-0.7); Absolute Lymphocytes 1.2 10^3/uL (1.2-3.4); Absolute Monocytes 0.3 10^3/uL (0.1-0.6); Absolute Neutrophils 2.2 10^3/uL (1.4-6.5); Hematocrit 28.6 % (37.0-47.0); Hemoglobin 9.3 g/dL (12.0-16.0); Mean Corp Hgb Conc. 32.5 g/dL (33.0-37.0); Mean Corpuscular Hgb 27.7 pg (27.0-31.0); Mean Corpuscular Volume 85.1 fL (81.0-99.0); Mean Platelet Volume 8.9 fL (7.4-10.4); Nucleated Red Blood Cells % 0 %; Platelet Count 293 10^3/uL (130-400); Red Blood Cell Count 3.36 10^6/uL (4.20-5.40); Red Cell Dist. Width 15.7 % (11.5-14.5); White Blood Cell Count 3.9 10^3/uL (4.8-10.8)
[2024-04-23 09:37] LABS: Albumin 3.8 g/dl (3.5-5.0); Blood Urea Nitrogen 31 mg/dl (7-17); Calcium 12.1 mg/dl (8.4-10.2); Carbon Dioxide 25 mmol/L (22-30); Chloride 93 mmol/L (98-107); Glucose 83 mg/dl (70-99); Iron 46 ug/dl (37-170); Phosphorus 5.2 mg/dl (2.5-4.5); Potassium 4.9 mmol/L (3.5-5.1); Sodium 127 mmol/L (135-145); eGFR 18.43
[2024-04-23 09:46] LABS: Percent Saturation 14 % (20-50); Total Iron Binding Capacity 322 ug/dl (265-497)
[2024-04-23 10:29] LABS: Ferritin 7.3 ng/ml (11.1-264.0)
== END ==
LOC: REG 08:41
PROVIDERS: ATTENDING PHYSICIAN Internal Medicine Hematology & Oncology; FAMILY PHYSICIAN Internal Medicine; REFERRING PHYSICIAN Internal Medicine Nephrology
DX: D64.9 Anemia, unspecified (principal); D63.1 Anemia in chronic kidney disease; M81.8 Other osteoporosis without current pathological fracture; R63.4 Abnormal weight loss; D75.89 Other specified diseases of blood and blood-forming organs; N18.4 Chronic kidney disease, stage 4 (severe); R64 Cachexia; N20.0 Calculus of kidney; N13.2 Hydronephrosis with renal and ureteral calculous obstruction; E43 Unspecified severe protein-calorie malnutrition; N17.9 Acute kidney failure, unspecified; E87.5 Hyperkalemia; E83.39 Other disorders of phosphorus metabolism
CPT/HCPCS: 36415; 80069; 82728; 83540; 83550; 85025

== ENCOUNTER → 2024-04-27 06:38 | Outpatient (REF) | payer BC, SELFPAY ==
[2024-04-27 07:30] LABS: Iron 47 ug/dl (37-170)
[2024-04-27 07:31] LABS: Albumin 3.8 g/dl (3.5-5.0); Blood Urea Nitrogen 31 mg/dl (7-17); Calcium 8.8 mg/dl (8.4-10.2); Carbon Dioxide 20 mmol/L (22-30); Chloride 94 mmol/L (98-107); Glucose 83 mg/dl (70-99); Phosphorus 5.4 mg/dl (2.5-4.5); Sodium 125 mmol/L (135-145); eGFR 19.22
[2024-04-27 07:32] LABS: Urine Albumin Negative (Neg - Trace); Urine Bilirubin Negative (Negative); Urine Character Clear (Clear); Urine Color Yellow; Urine Glucose Negative (Negative); Urine Ketone Negative (Negative); Urine Leukocyte Trace (Negative); Urine Nitrite Negative (Negative); Urine Occult Blood Negative (Negative); Urine Urobilinogen Negative (Neg - 1+)
[2024-04-27 07:36] LABS: % Basophils 1.4 % (0-2); % Eosinophils 2.8 % (0-6); % Immature Granulocytes 0.2 % (0-0.5); % Lymphocytes 34.6 % (20.5-51.1); % Monocytes 10.1 % (1.7-9.3); % Neutrophils 50.9 % (42.2-75.2); Absolute Basophils 0.1 10^3/uL (0-0.2); Absolute Eosinophils 0.1 10^3/uL (0-0.7); Absolute Lymphocytes 1.5 10^3/uL (1.2-3.4); Absolute Monocytes 0.4 10^3/uL (0.1-0.6); Absolute Neutrophils 2.2 10^3/uL (1.4-6.5); Hematocrit 27.3 % (37.0-47.0); Mean Corpuscular Hgb 27.7 pg (27.0-31.0); Mean Platelet Volume 9.4 fL (7.4-10.4); Nucleated Red Blood Cells % 0 %; Platelet Count 273 10^3/uL (130-400); Red Blood Cell Count 3.25 10^6/uL (4.20-5.40); Red Cell Dist. Width 15.5 % (11.5-14.5); White Blood Cell Count 4.4 10^3/uL (4.8-10.8)
[2024-04-27 07:40] LABS: Percent Saturation 14 % (20-50); Total Iron Binding Capacity 330 ug/dl (265-497)
[2024-04-27 08:06] LABS: Ferritin 7.6 ng/ml (11.1-264.0)
[2024-04-27 08:13] LABS: Urine Calcium Oxalate Crystals Present; Urine Red Blood Cell None Seen /HPF (0-2)
[2024-04-27 10:47] LABS: Vitamin D, 25-OH*** 56.8 ng/mL (30-80)
== END ==
LOC: HWRAD 06:38
PROVIDERS: ATTENDING PHYSICIAN Internal Medicine Nephrology; FAMILY PHYSICIAN Internal Medicine; REFERRING PHYSICIAN Internal Medicine Hematology & Oncology
DX: N20.0 Calculus of kidney (principal); N18.4 Chronic kidney disease, stage 4 (severe); N13.2 Hydronephrosis with renal and ureteral calculous obstruction; E43 Unspecified severe protein-calorie malnutrition; N17.9 Acute kidney failure, unspecified; E87.5 Hyperkalemia; E83.89 Other disorders of mineral metabolism; D63.1 Anemia in chronic kidney disease; D64.9 Anemia, unspecified; M81.8 Other osteoporosis without current pathological fracture; R63.4 Abnormal weight loss; D75.89 Other specified diseases of blood and blood-forming organs; R64 Cachexia; E83.39 Other disorders of phosphorus metabolism
CPT/HCPCS: 36415; 74176; 80069; 81003; 81015; 82306; 82728; 83540; 83550; 83735; 83970; 85025

== ENCOUNTER → 2024-05-02 06:32 | Outpatient (REF) | payer BC, SELFPAY ==
[2024-05-02 07:55] LABS: % Basophils 1.5 % (0-2); % Eosinophils 1.7 % (0-6); % Immature Granulocytes 0.2 % (0-0.5); % Lymphocytes 29.5 % (20.5-51.1); % Monocytes 7.3 % (1.7-9.3); % Neutrophils 59.8 % (42.2-75.2); Absolute Basophils 0.1 10^3/uL (0-0.2); Absolute Eosinophils 0.1 10^3/uL (0-0.7); Absolute Lymphocytes 1.2 10^3/uL (1.2-3.4); Absolute Monocytes 0.3 10^3/uL (0.1-0.6); Absolute Neutrophils 2.5 10^3/uL (1.4-6.5); Hematocrit 27.3 % (37.0-47.0); Hemoglobin 9.1 g/dL (12.0-16.0); Mean Corp Hgb Conc. 33.3 g/dL (33.0-37.0); Mean Corpuscular Hgb 28.3 pg (27.0-31.0); Mean Corpuscular Volume 84.8 fL (81.0-99.0); Mean Platelet Volume 9.3 fL (7.4-10.4); Nucleated Red Blood Cells % 0 %; Platelet Count 273 10^3/uL (130-400); Red Blood Cell Count 3.22 10^6/uL (4.20-5.40); Red Cell Dist. Width 15.2 % (11.5-14.5); White Blood Cell Count 4.1 10^3/uL (4.8-10.8)
[2024-05-02 08:03] LABS: Albumin 3.7 g/dl (3.5-5.0); Blood Urea Nitrogen 29 mg/dl (7-17); Calcium 8.2 mg/dl (8.4-10.2); Carbon Dioxide 19 mmol/L (22-30); Chloride 95 mmol/L (98-107); Glucose 82 mg/dl (70-99); Magnesium 1.9 mg/dl (1.6-2.3); Phosphorus 3.6 mg/dl (2.5-4.5); Potassium 3.8 mmol/L (3.5-5.1); Sodium 124 mmol/L (135-145); Total CK 209 U/L (30-135); eGFR 25.67
[2024-05-02 08:04] LABS: Blood Urea Nitrogen 29 mg/dl (7-17); Calcium 8.2 mg/dl (8.4-10.2); Carbon Dioxide 19 mmol/L (22-30); Chloride 94 mmol/L (98-107); Creatine Phosphokinase 208 U/L (30-135); Glucose 82 mg/dl (70-99); Phosphorus 3.6 mg/dl (2.5-4.5); Potassium 3.7 mmol/L (3.5-5.1); Sodium 125 mmol/L (135-145); eGFR 25.67
[2024-05-02 08:05] LABS: C-Reactive Protein < 5.00 mg/L (0.0-10.00)
[2024-05-02 08:08] LABS: Erythrocyte Sed Rate 19 mm/hour (0-20)
[2024-05-02 08:13] LABS: Total Iron Binding Capacity 350 ug/dl (265-497)
[2024-05-02 08:32] LABS: CKMB 0.4 ng/ml (0.0-2.4)
[2024-05-02 08:38] LABS: Osmolality Serum 271 mOsm/kg (275-300)
[2024-05-02 08:45] LABS: Vitamin D, 25-OH*** 55.4 ng/mL (30-80)
[2024-05-02 08:48] LABS: Ferritin 7.1 ng/ml (11.1-264.0)
[2024-05-03 15:56] LABS: Thyroid Peroxidase Ab (TPO) 1.6 IU/mL (0.0-9.0)
[2024-05-03 16:09] LABS: Thyroglobulin Antibodies <0.9 IU/mL (0.0-4.0)
[2024-05-03 16:22] LABS: Intact PTH < 3.4 pg/ml (13.6-85.8)
[2024-05-04 02:46] LABS: ANA, IgG Reflex to HEp-2 Detected (None Detected)
[2024-05-04 11:12] LABS: Myeloperoxidase Antibody 0 AU/mL (0-19); Serine Protease-3, IgG 0 AU/mL (0-19)
[2024-05-04 15:08] LABS: Quantiferon Mitogen minus NIL 5.84 IU/mL; Quantiferon NIL 0.02 IU/mL; Quantiferon Plus TB2 minus NIL 0.01 IU/mL (<=0.34); Quantiferon TB Gold Plus Negative (Negative)
[2024-05-05 00:44] LABS: ANA, HEp-2, IgG Detected (<1:80)
[2024-05-05 02:57] LABS: Albumin 3.63 g/dL (3.75-5.01); Alpha 2 Globulin 0.81 g/dL (0.48-1.05); Total Protein-Electrophoresis 6.1 g/dL (6.3-8.2)
[2024-05-05 02:58] LABS: Free Kappa Light Chains,Quant 37.15 mg/L (3.30-19.40); Free Lambda Light Chains,Quant 32.84 mg/L (5.71-26.30); IgA 83 mg/dL (68-408); IgG 529 mg/dL (768-1632); IgM 16 mg/dL (35-263); Immunofixation Electrophoresis IFE Done; Kappa/Lambda Fr Light Ratio 1.13 (0.26-1.65)
[2024-05-05 08:14] LABS: ANA Pattern Speckled
== END ==
LOC: REG 06:32
PROVIDERS: FAMILY PHYSICIAN Internal Medicine; OTHER PHYSICIAN Internal Medicine; OTHER PHYSICIAN Internal Medicine Nephrology; OTHER PHYSICIAN Internal Medicine Rheumatology
DX: D47.2 Monoclonal gammopathy (principal); E03.9 Hypothyroidism, unspecified; I77.82 Antineutrophilic cytoplasmic antibody [ANCA] vasculitis; M79.10 Myalgia, unspecified site; R53.1 Weakness; R76.8 Other specified abnormal immunological findings in serum; Z11.1 Encounter for screening for respiratory tuberculosis; E21.0 Primary hyperparathyroidism; N18.4 Chronic kidney disease, stage 4 (severe); E87.1 Hypo-osmolality and hyponatremia; D63.1 Anemia in chronic kidney disease; D50.8 Other iron deficiency anemias; E20.9 Hypoparathyroidism, unspecified; N20.0 Calculus of kidney; N13.2 Hydronephrosis with renal and ureteral calculous obstruction; E43 Unspecified severe protein-calorie malnutrition; N17.9 Acute kidney failure, unspecified; E87.5 Hyperkalemia; E83.39 Other disorders of phosphorus metabolism
CPT/HCPCS: 36415; 80048; 80069; 82306; 82550; 82553; 82728; 82784; 83516; 83521; 83550; 83735; 83930; 83970; 84100; 84155; 84165; 84432; 85025; 85652; 86038; 86039; 86140; 86334; 86376; 86480; 86800

== ENCOUNTER → 2024-05-09 06:22 | Outpatient (REF) | payer BC, SELFPAY ==
[2024-05-09 07:36] LABS: Ionized Calcium 1.09 mMOL/L (1.15-1.33)
[2024-05-09 07:45] LABS: Osmolality Urine 272 mOsm/kg (300-900)
[2024-05-09 07:56] LABS: Urine Sodium < 5 mmol/L (30-90)
[2024-05-09 08:02] LABS: % Basophils 1.6 % (0-2); % Eosinophils 9.8 % (0-6); % Immature Granulocytes 0.2 % (0-0.5); % Lymphocytes 35.8 % (20.5-51.1); % Monocytes 7.2 % (1.7-9.3); % Neutrophils 45.4 % (42.2-75.2); Absolute Basophils 0.1 10^3/uL (0-0.2); Absolute Eosinophils 0.4 10^3/uL (0-0.7); Absolute Lymphocytes 1.6 10^3/uL (1.2-3.4); Absolute Monocytes 0.3 10^3/uL (0.1-0.6); Hematocrit 28.6 % (37.0-47.0); Hemoglobin 9.5 g/dL (12.0-16.0); Mean Corp Hgb Conc. 33.2 g/dL (33.0-37.0); Mean Corpuscular Hgb 28.4 pg (27.0-31.0); Mean Corpuscular Volume 85.6 fL (81.0-99.0); Mean Platelet Volume 9.2 fL (7.4-10.4); Nucleated Red Blood Cells % 0 %; Platelet Count 306 10^3/uL (130-400); Red Blood Cell Count 3.34 10^6/uL (4.20-5.40); Red Cell Dist. Width 15.7 % (11.5-14.5); White Blood Cell Count 4.5 10^3/uL (4.8-10.8)
[2024-05-09 08:14] LABS: Urine Albumin Trace (Neg - Trace); Urine Bilirubin Negative (Negative); Urine Character Clear (Clear); Urine Color Yellow; Urine Glucose Negative (Negative); Urine Ketone Negative (Negative); Urine Leukocyte 2+ (Negative); Urine Nitrite Negative (Negative); Urine Occult Blood Negative (Negative); Urine Urobilinogen Negative (Neg - 1+)
[2024-05-09 08:20] LABS: ALT (SGPT) 22 U/L (0-35); AST (SGOT) 38 U/L (14-36); Albumin 3.8 g/dl (3.5-5.0); Alkaline Phosphatase 94 U/L (38-126); Blood Urea Nitrogen 29 mg/dl (7-17); Calcium 8.9 mg/dl (8.4-10.2); Carbon Dioxide 22 mmol/L (22-30); Chloride 93 mmol/L (98-107); Glucose 84 mg/dl (70-99); Phosphorus 4.3 mg/dl (2.5-4.5); Potassium 5.8 mmol/L (3.5-5.1); Sodium 127 mmol/L (135-145); Total Bilirubin 0.6 mg/dl (0.2-1.3); Total Protein 6.2 g/dl (6.3-8.2); eGFR 27.14
[2024-05-09 08:25] LABS: Albumin 3.8 g/dl (3.5-5.0); Blood Urea Nitrogen 30 mg/dl (7-17); Calcium 8.8 mg/dl (8.4-10.2); Carbon Dioxide 20 mmol/L (22-30); Chloride 93 mmol/L (98-107); Glucose 84 mg/dl (70-99); Phosphorus 4.2 mg/dl (2.5-4.5); Potassium 5.9 mmol/L (3.5-5.1); Sodium 127 mmol/L (135-145); eGFR 27.14
[2024-05-09 08:30] LABS: Total Iron Binding Capacity 364 ug/dl (265-497)
[2024-05-09 08:54] LABS: Ferritin 5.8 ng/ml (11.1-264.0)
[2024-05-09 08:56] LABS: Urine Bacteria Moderate (Negative); Urine White Cell 40-50 /HPF (0-5)
[2024-05-11 10:52] LABS: Intact PTH < 3.4 pg/ml (13.6-85.8)
== END ==
LOC: REG 06:22
PROVIDERS: ATTENDING PHYSICIAN Internal Medicine; FAMILY PHYSICIAN Internal Medicine; OTHER PHYSICIAN Internal Medicine Nephrology; REFERRING PHYSICIAN Internal Medicine Endocrinology, Diabetes & Metabolism
DX: E87.1 Hypo-osmolality and hyponatremia (principal); N18.4 Chronic kidney disease, stage 4 (severe); E83.52 Hypercalcemia; D63.1 Anemia in chronic kidney disease; D50.8 Other iron deficiency anemias; E21.0 Primary hyperparathyroidism; E20.9 Hypoparathyroidism, unspecified; N20.0 Calculus of kidney; N13.2 Hydronephrosis with renal and ureteral calculous obstruction; E43 Unspecified severe protein-calorie malnutrition; N17.9 Acute kidney failure, unspecified; E87.5 Hyperkalemia; E83.39 Other disorders of phosphorus metabolism
CPT/HCPCS: 36415; 80053; 80069; 81003; 81015; 82330; 82728; 83550; 83735; 83935; 83970; 84100; 84300; 85025

== ENCOUNTER → 2024-05-18 06:39 | Outpatient (REF) | payer BC, SELFPAY ==
[2024-05-18 07:38] LABS: Ionized Calcium 1.26 mMOL/L (1.15-1.33)
[2024-05-18 07:44] LABS: % Basophils 1.7 % (0-2); % Eosinophils 6.4 % (0-6); % Immature Granulocytes 0.2 % (0-0.5); % Lymphocytes 33.7 % (20.5-51.1); Absolute Basophils 0.1 10^3/uL (0-0.2); Absolute Eosinophils 0.3 10^3/uL (0-0.7); Absolute Lymphocytes 1.4 10^3/uL (1.2-3.4); Absolute Monocytes 0.4 10^3/uL (0.1-0.6); Absolute Neutrophils 2.1 10^3/uL (1.4-6.5); Hematocrit 26.5 % (37.0-47.0); Hemoglobin 8.8 g/dL (12.0-16.0); Mean Corp Hgb Conc. 33.2 g/dL (33.0-37.0); Mean Corpuscular Hgb 27.8 pg (27.0-31.0); Mean Corpuscular Volume 83.9 fL (81.0-99.0); Mean Platelet Volume 8.9 fL (7.4-10.4); Nucleated Red Blood Cells % 0 %; Platelet Count 277 10^3/uL (130-400); Red Blood Cell Count 3.16 10^6/uL (4.20-5.40); Red Cell Dist. Width 15.4 % (11.5-14.5); White Blood Cell Count 4.2 10^3/uL (4.8-10.8)
[2024-05-18 07:55] LABS: ALT (SGPT) 23 U/L (0-35); AST (SGOT) 38 U/L (14-36); Alkaline Phosphatase 105 U/L (38-126); Blood Urea Nitrogen 22 mg/dl (7-17); Carbon Dioxide 21 mmol/L (22-30); Chloride 95 mmol/L (98-107); Glucose 91 mg/dl (70-99); Magnesium 2.3 mg/dl (1.6-2.3); Sodium 127 mmol/L (135-145); Total Bilirubin 0.7 mg/dl (0.2-1.3); Total Protein 6.4 g/dl (6.3-8.2); eGFR 23.12
[2024-05-18 08:04] LABS: Total Iron Binding Capacity 343 ug/dl (265-497)
[2024-05-18 08:12] LABS: Vitamin D, 25-OH*** 47.5 ng/mL (30-80)
[2024-05-18 08:30] LABS: Ferritin 14.9 ng/ml (11.1-264.0)
[2024-05-18 09:14] LABS: Intact PTH < 3.4 pg/ml (13.6-85.8)
[2024-05-19 02:15] LABS: Complement C3 84 mg/dl (88-165)
[2024-05-20 01:22] LABS: Smith/RNP (ENA), IgG 2 Units (0-19)
[2024-05-20 01:33] LABS: SSA 52 (Ro)(ENA) Ab, IgG 1 AU/mL (0-40); SSA 60 (Ro)(ENA) Ab, IgG 0 AU/mL (0-40); SSB (La)(ENA) Ab, IgG 0 AU/mL (0-40); Smith (ENA) Antibody, IgG 1 AU/mL (0-40)
[2024-05-20 01:49] LABS: ds-DNA Ab, IgG Reflex To Titer 4 IU (0-24)
== END ==
LOC: REG 06:39
PROVIDERS: ATTENDING PHYSICIAN Internal Medicine Nephrology; FAMILY PHYSICIAN Internal Medicine; OTHER PHYSICIAN Internal Medicine Rheumatology; REFERRING PHYSICIAN Internal Medicine Endocrinology, Diabetes & Metabolism
DX: N20.0 Calculus of kidney (principal); N18.4 Chronic kidney disease, stage 4 (severe); N13.2 Hydronephrosis with renal and ureteral calculous obstruction; E43 Unspecified severe protein-calorie malnutrition; D63.1 Anemia in chronic kidney disease; D50.8 Other iron deficiency anemias; E21.0 Primary hyperparathyroidism; E83.52 Hypercalcemia; E20.9 Hypoparathyroidism, unspecified; E21.3 Hyperparathyroidism, unspecified; E79.0 Hyperuricemia without signs of inflammatory arthritis and tophaceous disease; G90.529 Complex regional pain syndrome I of unspecified lower limb; M19.071 Primary osteoarthritis, right ankle and foot; M35.1 Other overlap syndromes; M35.9 Systemic involvement of connective tissue, unspecified; M60.9 Myositis, unspecified; M79.10 Myalgia, unspecified site; M81.0 Age-related osteoporosis without current pathological fracture; R53.1 Weakness; R63.4 Abnormal weight loss; R76.8 Other specified abnormal immunological findings in serum
CPT/HCPCS: 36415; 80053; 82306; 82330; 82728; 83550; 83735; 83970; 84100; 85025; 86160; 86225; 86235; 86698

== ENCOUNTER → 2024-05-24 06:23 | Outpatient (REF) | payer BC, SELFPAY ==
[2024-05-24 07:18] LABS: ALT (SGPT) 22 U/L (0-35); AST (SGOT) 37 U/L (14-36); Albumin 3.7 g/dl (3.5-5.0); Alkaline Phosphatase 102 U/L (38-126); Blood Urea Nitrogen 25 mg/dl (7-17); Calcium 9.1 mg/dl (8.4-10.2); Carbon Dioxide 17 mmol/L (22-30); Chloride 100 mmol/L (98-107); Glucose 80 mg/dl (70-99); Iron 48 ug/dl (37-170); Phosphorus 3.9 mg/dl (2.5-4.5); Potassium 4.8 mmol/L (3.5-5.1); Sodium 130 mmol/L (135-145); Total Bilirubin 0.4 mg/dl (0.2-1.3); Total Protein 5.9 g/dl (6.3-8.2); eGFR 25.67
[2024-05-24 07:27] LABS: Percent Saturation 15 % (20-50); Total Iron Binding Capacity 318 ug/dl (265-497)
[2024-05-24 07:28] LABS: % Basophils 1.8 % (0-2); % Eosinophils 8.4 % (0-6); % Immature Granulocytes 0.2 % (0-0.5); % Lymphocytes 29.5 % (20.5-51.1); % Monocytes 7.7 % (1.7-9.3); % Neutrophils 52.4 % (42.2-75.2); Absolute Basophils 0.1 10^3/uL (0-0.2); Absolute Eosinophils 0.5 10^3/uL (0-0.7); Absolute Lymphocytes 1.8 10^3/uL (1.2-3.4); Absolute Monocytes 0.5 10^3/uL (0.1-0.6); Absolute Neutrophils 3.1 10^3/uL (1.4-6.5); Hematocrit 23.2 % (37.0-47.0); Hemoglobin 7.9 g/dL (12.0-16.0); Mean Corp Hgb Conc. 34.1 g/dL (33.0-37.0); Mean Corpuscular Volume 82.3 fL (81.0-99.0); Mean Platelet Volume 9.4 fL (7.4-10.4); Nucleated Red Blood Cells % 0 %; Platelet Count 312 10^3/uL (130-400); Red Blood Cell Count 2.82 10^6/uL (4.20-5.40); Red Cell Dist. Width 16.2 % (11.5-14.5)
== END ==
LOC: REG 06:23
PROVIDERS: ATTENDING PHYSICIAN Internal Medicine Hematology & Oncology; FAMILY PHYSICIAN Internal Medicine; REFERRING PHYSICIAN Internal Medicine Nephrology
DX: D64.9 Anemia, unspecified (principal); D63.1 Anemia in chronic kidney disease; M81.8 Other osteoporosis without current pathological fracture; R63.4 Abnormal weight loss; D75.89 Other specified diseases of blood and blood-forming organs; N18.4 Chronic kidney disease, stage 4 (severe); R64 Cachexia; D50.9 Iron deficiency anemia, unspecified; N20.0 Calculus of kidney; E43 Unspecified severe protein-calorie malnutrition; N13.2 Hydronephrosis with renal and ureteral calculous obstruction; N17.9 Acute kidney failure, unspecified; E87.5 Hyperkalemia; E83.39 Other disorders of phosphorus metabolism
CPT/HCPCS: 36415; 80053; 82728; 83540; 83550; 84100; 85025

== ENCOUNTER → 2024-06-02 06:23 | Outpatient (REF) | payer BC, SELFPAY ==
[2024-06-02 07:22] LABS: % Basophils 1.4 % (0-2); % Eosinophils 7.5 % (0-6); % Immature Granulocytes 0.2 % (0-0.5); % Lymphocytes 30.3 % (20.5-51.1); % Monocytes 7.2 % (1.7-9.3); % Neutrophils 53.4 % (42.2-75.2); Absolute Basophils 0.1 10^3/uL (0-0.2); Absolute Eosinophils 0.3 10^3/uL (0-0.7); Absolute Lymphocytes 1.3 10^3/uL (1.2-3.4); Absolute Monocytes 0.3 10^3/uL (0.1-0.6); Absolute Neutrophils 2.3 10^3/uL (1.4-6.5); Hematocrit 26.9 % (37.0-47.0); Hemoglobin 8.9 g/dL (12.0-16.0); Mean Corp Hgb Conc. 33.1 g/dL (33.0-37.0); Mean Corpuscular Hgb 28.3 pg (27.0-31.0); Mean Corpuscular Volume 85.4 fL (81.0-99.0); Mean Platelet Volume 8.7 fL (7.4-10.4); Nucleated Red Blood Cells % 0 %; Platelet Count 249 10^3/uL (130-400); Red Blood Cell Count 3.15 10^6/uL (4.20-5.40); Red Cell Dist. Width 16.6 % (11.5-14.5); White Blood Cell Count 4.3 10^3/uL (4.8-10.8)
[2024-06-02 07:32] LABS: ALT (SGPT) 21 U/L (0-35); AST (SGOT) 35 U/L (14-36); Albumin 3.7 g/dl (3.5-5.0); Alkaline Phosphatase 96 U/L (38-126); Blood Urea Nitrogen 16 mg/dl (7-17); Calcium 9.3 mg/dl (8.4-10.2); Carbon Dioxide 18 mmol/L (22-30); Chloride 98 mmol/L (98-107); Glucose 70 mg/dl (70-99); Phosphorus 4.8 mg/dl (2.5-4.5); Potassium 5.2 mmol/L (3.5-5.1); Sodium 131 mmol/L (135-145); Total Bilirubin 0.5 mg/dl (0.2-1.3); eGFR 27.14
[2024-06-02 07:42] LABS: Total Iron Binding Capacity 306 ug/dl (265-497)
== END ==
LOC: REG 06:23
PROVIDERS: ATTENDING PHYSICIAN Internal Medicine Nephrology; FAMILY PHYSICIAN Internal Medicine; REFERRING PHYSICIAN Internal Medicine Rheumatology
DX: N18.4 Chronic kidney disease, stage 4 (severe) (principal); N13.2 Hydronephrosis with renal and ureteral calculous obstruction; N20.0 Calculus of kidney; E43 Unspecified severe protein-calorie malnutrition; D63.1 Anemia in chronic kidney disease; M79.10 Myalgia, unspecified site; M60.9 Myositis, unspecified; R53.1 Weakness; R63.4 Abnormal weight loss; R76.8 Other specified abnormal immunological findings in serum
CPT/HCPCS: 36415; 80053; 82728; 83550; 83735; 84100; 85025

== ENCOUNTER → 2024-06-07 06:28 | Outpatient (REF) | payer BC, SELFPAY ==
[2024-06-07 07:10] LABS: Hematocrit 27.5 % (37.0-47.0); Hemoglobin 8.9 g/dL (12.0-16.0); Mean Corp Hgb Conc. 32.4 g/dL (33.0-37.0); Mean Corpuscular Hgb 29.1 pg (27.0-31.0); Mean Corpuscular Volume 89.9 fL (81.0-99.0); Mean Platelet Volume 9.1 fL (7.4-10.4); Platelet Count 239 10^3/uL (130-400); Red Blood Cell Count 3.06 10^6/uL (4.20-5.40); Red Cell Dist. Width 16.3 % (11.5-14.5)
[2024-06-07 07:31] LABS: Total Iron Binding Capacity 312 ug/dl (265-497)
[2024-06-07 08:07] LABS: Ferritin 9.1 ng/ml (11.1-264.0)
[2024-06-07 09:33] LABS: Alkaline Phosphatase 86 U/L (38-126); Blood Urea Nitrogen 19 mg/dl (7-17); Calcium 8.9 mg/dl (8.4-10.2); Carbon Dioxide 16 mmol/L (22-30); Chloride 98 mmol/L (98-107); Glucose 85 mg/dl (70-99); Potassium 5.4 mmol/L (3.5-5.1); Sodium 129 mmol/L (135-145); eGFR 27.14
[2024-06-07 09:34] LABS: ALT (SGPT) 19 U/L (0-35); AST (SGOT) 30 U/L (14-36); Albumin 30 g/dl (3.5-5.0); Magnesium 2.1 mg/dl (1.6-2.3); Phosphorus 4.6 mg/dl (2.5-4.5); Total Bilirubin 0.5 mg/dl (0.2-1.3); Total Protein 5.9 g/dl (6.3-8.2)
== END ==
LOC: REG 06:28
PROVIDERS: ATTENDING PHYSICIAN Internal Medicine Nephrology; FAMILY PHYSICIAN Internal Medicine; REFERRING PHYSICIAN Internal Medicine Nephrology
DX: N18.4 Chronic kidney disease, stage 4 (severe) (principal); D63.1 Anemia in chronic kidney disease; D50.8 Other iron deficiency anemias; E21.0 Primary hyperparathyroidism; N20.0 Calculus of kidney; N13.2 Hydronephrosis with renal and ureteral calculous obstruction; E43 Unspecified severe protein-calorie malnutrition; N17.9 Acute kidney failure, unspecified; E87.5 Hyperkalemia; E83.39 Other disorders of phosphorus metabolism
CPT/HCPCS: 36415; 80053; 82728; 83550; 83735; 84100; 85027

== ENCOUNTER → 2024-06-11 07:37 | Outpatient (REF) | payer BC, SELFPAY ==
[2024-06-11 08:28] LABS: Ionized Calcium 1.31 mMOL/L (1.15-1.33)
[2024-06-11 08:30] LABS: % Basophils 1.5 % (0-2); % Eosinophils 8.6 % (0-6); % Immature Granulocytes 0.3 % (0-0.5); % Lymphocytes 30.6 % (20.5-51.1); % Monocytes 9.1 % (1.7-9.3); % Neutrophils 49.9 % (42.2-75.2); Absolute Basophils 0.1 10^3/uL (0-0.2); Absolute Eosinophils 0.3 10^3/uL (0-0.7); Absolute Lymphocytes 1.2 10^3/uL (1.2-3.4); Absolute Monocytes 0.4 10^3/uL (0.1-0.6); Hematocrit 28.2 % (37.0-47.0); Mean Corp Hgb Conc. 31.9 g/dL (33.0-37.0); Mean Corpuscular Hgb 27.9 pg (27.0-31.0); Mean Corpuscular Volume 87.3 fL (81.0-99.0); Mean Platelet Volume 9.3 fL (7.4-10.4); Nucleated Red Blood Cells % 0 %; Platelet Count 242 10^3/uL (130-400); Red Blood Cell Count 3.23 10^6/uL (4.20-5.40); Red Cell Dist. Width 15.8 % (11.5-14.5)
[2024-06-11 08:35] LABS: Albumin 3.7 g/dl (3.5-5.0)
[2024-06-11 08:36] LABS: ALT (SGPT) 18 U/L (0-35); AST (SGOT) 32 U/L (14-36); Albumin 3.6 g/dl (3.5-5.0); Alkaline Phosphatase 76 U/L (38-126); Blood Urea Nitrogen 19 mg/dl (7-17); Calcium 9.9 mg/dl (8.4-10.2); Carbon Dioxide 18 mmol/L (22-30); Chloride 100 mmol/L (98-107); Glucose 82 mg/dl (70-99); Iron 67 ug/dl (37-170); Phosphorus 4.6 mg/dl (2.5-4.5); Potassium 5.1 mmol/L (3.5-5.1); Sodium 129 mmol/L (135-145); Total Bilirubin 0.5 mg/dl (0.2-1.3); Total Protein 5.9 g/dl (6.3-8.2); eGFR 32.66
[2024-06-11 08:45] LABS: Percent Saturation 21 % (20-50); Total Iron Binding Capacity 308 ug/dl (265-497)
[2024-06-11 08:52] LABS: Intact PTH < 3.4 pg/ml (13.6-85.8)
[2024-06-11 09:12] LABS: Ferritin 8.2 ng/ml (11.1-264.0)
== END ==
LOC: REG 07:37
PROVIDERS: ATTENDING PHYSICIAN Internal Medicine Rheumatology; FAMILY PHYSICIAN Internal Medicine; OTHER PHYSICIAN Internal Medicine; OTHER PHYSICIAN Internal Medicine Nephrology; REFERRING PHYSICIAN Internal Medicine Nephrology
DX: R63.4 Abnormal weight loss (principal); R76.8 Other specified abnormal immunological findings in serum; N18.4 Chronic kidney disease, stage 4 (severe); D50.8 Other iron deficiency anemias; E21.0 Primary hyperparathyroidism; E87.1 Hypo-osmolality and hyponatremia; N20.0 Calculus of kidney; N13.2 Hydronephrosis with renal and ureteral calculous obstruction; E43 Unspecified severe protein-calorie malnutrition; N17.9 Acute kidney failure, unspecified; E87.5 Hyperkalemia; E83.39 Other disorders of phosphorus metabolism; E20.9 Hypoparathyroidism, unspecified
CPT/HCPCS: 36415; 80053; 82040; 82330; 82728; 83540; 83550; 83735; 83970; 84100; 85025

== ENCOUNTER → 2024-06-17 06:53 | Outpatient (REF) | payer BC, SELFPAY ==
[2024-06-17 07:31] LABS: % Basophils 1.9 % (0-2); % Eosinophils 5.7 % (0-6); % Lymphocytes 34.1 % (20.5-51.1); % Monocytes 7.8 % (1.7-9.3); % Neutrophils 50.5 % (42.2-75.2); Absolute Basophils 0.1 10^3/uL (0-0.2); Absolute Eosinophils 0.2 10^3/uL (0-0.7); Absolute Lymphocytes 1.3 10^3/uL (1.2-3.4); Absolute Monocytes 0.3 10^3/uL (0.1-0.6); Absolute Neutrophils 1.9 10^3/uL (1.4-6.5); Hematocrit 28.6 % (37.0-47.0); Hemoglobin 9.2 g/dL (12.0-16.0); Mean Corp Hgb Conc. 32.2 g/dL (33.0-37.0); Mean Corpuscular Volume 86.9 fL (81.0-99.0); Mean Platelet Volume 8.8 fL (7.4-10.4); Nucleated Red Blood Cells % 0 %; Platelet Count 283 10^3/uL (130-400); Red Blood Cell Count 3.29 10^6/uL (4.20-5.40); Red Cell Dist. Width 15.6 % (11.5-14.5); White Blood Cell Count 3.7 10^3/uL (4.8-10.8)
[2024-06-17 07:45] LABS: Albumin 3.5 g/dl (3.5-5.0); Blood Urea Nitrogen 22 mg/dl (7-17); Calcium 8.8 mg/dl (8.4-10.2); Carbon Dioxide 21 mmol/L (22-30); Chloride 98 mmol/L (98-107); Glucose 78 mg/dl (70-99); Iron 38 ug/dl (37-170); Phosphorus 4.7 mg/dl (2.5-4.5); Potassium 5.5 mmol/L (3.5-5.1); Sodium 130 mmol/L (135-145); eGFR 32.66
[2024-06-17 07:54] LABS: Percent Saturation 12 % (20-50); Total Iron Binding Capacity 301 ug/dl (265-497)
[2024-06-17 08:21] LABS: Ferritin 6.8 ng/ml (11.1-264.0)
== END ==
LOC: REG 06:53
PROVIDERS: Internal Medicine Hematology & Oncology; ATTENDING PHYSICIAN Internal Medicine Nephrology; FAMILY PHYSICIAN Internal Medicine
DX: N20.0 Calculus of kidney (principal); N13.2 Hydronephrosis with renal and ureteral calculous obstruction; N18.4 Chronic kidney disease, stage 4 (severe); E43 Unspecified severe protein-calorie malnutrition; N17.9 Acute kidney failure, unspecified; E87.5 Hyperkalemia; E83.39 Other disorders of phosphorus metabolism; D64.9 Anemia, unspecified; D63.1 Anemia in chronic kidney disease; M81.8 Other osteoporosis without current pathological fracture; R63.4 Abnormal weight loss; D75.89 Other specified diseases of blood and blood-forming organs; R64 Cachexia; D50.9 Iron deficiency anemia, unspecified
CPT/HCPCS: 36415; 80069; 82728; 83540; 83550; 85025

== ENCOUNTER → 2024-06-23 06:36 | Outpatient (REF) | payer BC, SELFPAY ==
[2024-06-23 07:29] LABS: % Basophils 1.3 % (0-2); % Eosinophils 6.3 % (0-6); % Immature Granulocytes 0.3 % (0-0.5); % Lymphocytes 33.3 % (20.5-51.1); % Monocytes 7.1 % (1.7-9.3); % Neutrophils 51.7 % (42.2-75.2); Absolute Basophils 0.1 10^3/uL (0-0.2); Absolute Eosinophils 0.2 10^3/uL (0-0.7); Absolute Lymphocytes 1.3 10^3/uL (1.2-3.4); Absolute Monocytes 0.3 10^3/uL (0.1-0.6); Hematocrit 28.3 % (37.0-47.0); Hemoglobin 9.3 g/dL (12.0-16.0); Mean Corp Hgb Conc. 32.9 g/dL (33.0-37.0); Mean Corpuscular Hgb 29.2 pg (27.0-31.0); Mean Platelet Volume 8.9 fL (7.4-10.4); Nucleated Red Blood Cells % 0 %; Platelet Count 266 10^3/uL (130-400); Red Blood Cell Count 3.18 10^6/uL (4.20-5.40); Red Cell Dist. Width 15.3 % (11.5-14.5); White Blood Cell Count 3.8 10^3/uL (4.8-10.8)
[2024-06-23 07:43] LABS: ALT (SGPT) 20 U/L (0-35); AST (SGOT) 33 U/L (14-36); Albumin 3.5 g/dl (3.5-5.0); Alkaline Phosphatase 97 U/L (38-126); Blood Urea Nitrogen 19 mg/dl (7-17); Calcium 9.5 mg/dl (8.4-10.2); Carbon Dioxide 22 mmol/L (22-30); Chloride 98 mmol/L (98-107); Glucose 79 mg/dl (70-99); Phosphorus 4.4 mg/dl (2.5-4.5); Potassium 5.1 mmol/L (3.5-5.1); Sodium 130 mmol/L (135-145); Total Bilirubin 0.3 mg/dl (0.2-1.3); Total Protein 5.7 g/dl (6.3-8.2); eGFR 30.61
[2024-06-23 08:48] LABS: Folate > 20.0 ng/ml (2.76-20); Vitamin B12 653 pg/ml (239-931)
== END ==
LOC: REG 06:36
PROVIDERS: Internal Medicine Nephrology; ATTENDING PHYSICIAN Internal Medicine Rheumatology; FAMILY PHYSICIAN Internal Medicine; REFERRING PHYSICIAN Internal Medicine Gastroenterology
DX: R63.4 Abnormal weight loss (principal); R76.8 Other specified abnormal immunological findings in serum; N20.0 Calculus of kidney; D63.1 Anemia in chronic kidney disease; N18.4 Chronic kidney disease, stage 4 (severe)
CPT/HCPCS: 36415; 80053; 82607; 82746; 84100; 85025

== ENCOUNTER → 2024-08-13 07:50 | Outpatient (REF) | payer BC, SELFPAY ==
[2024-08-13 08:35] LABS: % Basophils 1.4 % (0-2); % Eosinophils 5.9 % (0-6); % Immature Granulocytes 0.3 % (0-0.5); % Lymphocytes 26.9 % (20.5-51.1); % Monocytes 7.6 % (1.7-9.3); % Neutrophils 57.9 % (42.2-75.2); Absolute Basophils 0.1 10^3/uL (0-0.2); Absolute Eosinophils 0.2 10^3/uL (0-0.7); Absolute Monocytes 0.3 10^3/uL (0.1-0.6); Hematocrit 32.6 % (37.0-47.0); Hemoglobin 10.1 g/dL (12.0-16.0); Mean Corpuscular Hgb 28.5 pg (27.0-31.0); Mean Corpuscular Volume 91.8 fL (81.0-99.0); Mean Platelet Volume 8.7 fL (7.4-10.4); Nucleated Red Blood Cells % 0 %; Platelet Count 264 10^3/uL (130-400); Red Blood Cell Count 3.55 10^6/uL (4.20-5.40); Red Cell Dist. Width 14.4 % (11.5-14.5); White Blood Cell Count 3.5 10^3/uL (4.8-10.8)
[2024-08-13 08:44] LABS: ALT (SGPT) 27 U/L (0-35); AST (SGOT) 44 U/L (14-36); Albumin 3.8 g/dl (3.5-5.0); Alkaline Phosphatase 95 U/L (38-126); Blood Urea Nitrogen 22 mg/dl (7-17); Calcium 8.7 mg/dl (8.4-10.2); Carbon Dioxide 17 mmol/L (22-30); Chloride 97 mmol/L (98-107); Glucose 86 mg/dl (70-99); Iron 70 ug/dl (37-170); Phosphorus 4.5 mg/dl (2.5-4.5); Potassium 5.4 mmol/L (3.5-5.1); Sodium 128 mmol/L (135-145); Total Bilirubin 0.6 mg/dl (0.2-1.3); Total Protein 6.3 g/dl (6.3-8.2); eGFR 23.12
[2024-08-13 08:53] LABS: Percent Saturation 22 % (20-50); Total Iron Binding Capacity 306 ug/dl (265-497)
[2024-08-13 09:22] LABS: Ferritin 6.4 ng/ml (11.1-264.0)
== END ==
LOC: REG 07:50
PROVIDERS: ATTENDING PHYSICIAN Internal Medicine Nephrology; FAMILY PHYSICIAN Internal Medicine; OTHER PHYSICIAN Internal Medicine Hematology & Oncology; OTHER PHYSICIAN Internal Medicine Rheumatology; REFERRING PHYSICIAN Internal Medicine Nephrology
DX: R63.4 Abnormal weight loss (principal); R76.8 Other specified abnormal immunological findings in serum; D64.9 Anemia, unspecified; D63.1 Anemia in chronic kidney disease; M81.8 Other osteoporosis without current pathological fracture; D75.89 Other specified diseases of blood and blood-forming organs; N18.4 Chronic kidney disease, stage 4 (severe); R64 Cachexia; D50.8 Other iron deficiency anemias; E21.0 Primary hyperparathyroidism; N20.0 Calculus of kidney; N13.2 Hydronephrosis with renal and ureteral calculous obstruction; E43 Unspecified severe protein-calorie malnutrition; N17.9 Acute kidney failure, unspecified; E87.5 Hyperkalemia; E83.39 Other disorders of phosphorus metabolism
CPT/HCPCS: 36415; 80053; 82728; 83540; 83550; 84100; 85025

== ENCOUNTER → 2024-08-24 13:39 | Outpatient (REF) | payer BC, SELFPAY | LOC: HWRAD 13:39 | PROVIDERS: ATTENDING PHYSICIAN Internal Medicine Nephrology; FAMILY PHYSICIAN Internal Medicine | DX: N20.0 Calculus of kidney (principal); N13.2 Hydronephrosis with renal and ureteral calculous obstruction; N18.4 Chronic kidney disease, stage 4 (severe) | CPT/HCPCS: 74176 ==

== ENCOUNTER → 2024-08-30 11:07 | Outpatient (REF) | payer BC, SELFPAY ==
[2024-08-30 11:46] LABS: % Basophils 1.6 % (0-2); % Immature Granulocytes 0.2 % (0-0.5); % Lymphocytes 22.8 % (20.5-51.1); % Monocytes 6.6 % (1.7-9.3); % Neutrophils 60.8 % (42.2-75.2); Absolute Basophils 0.1 10^3/uL (0-0.2); Absolute Eosinophils 0.3 10^3/uL (0-0.7); Absolute Monocytes 0.3 10^3/uL (0.1-0.6); Absolute Neutrophils 2.6 10^3/uL (1.4-6.5); Hematocrit 31.7 % (37.0-47.0); Hemoglobin 10.6 g/dL (12.0-16.0); Mean Corp Hgb Conc. 33.4 g/dL (33.0-37.0); Mean Corpuscular Volume 86.6 fL (81.0-99.0); Mean Platelet Volume 8.9 fL (7.4-10.4); Nucleated Red Blood Cells % 0 %; Platelet Count 320 10^3/uL (130-400); Red Blood Cell Count 3.66 10^6/uL (4.20-5.40); Red Cell Dist. Width 14.1 % (11.5-14.5); White Blood Cell Count 4.3 10^3/uL (4.8-10.8)
[2024-08-30 12:09] LABS: ALT (SGPT) 19 U/L (0-35); AST (SGOT) 27 U/L (14-36); Albumin 4.2 g/dl (3.5-5.0); Alkaline Phosphatase 91 U/L (38-126); Blood Urea Nitrogen 30 mg/dl (7-17); Calcium 9.1 mg/dl (8.4-10.2); Carbon Dioxide 19 mmol/L (22-30); Chloride 96 mmol/L (98-107); Glucose 101 mg/dl (70-99); Magnesium 1.9 mg/dl (1.6-2.3); Phosphorus 4.9 mg/dl (2.5-4.5); Potassium 5.6 mmol/L (3.5-5.1); Sodium 130 mmol/L (135-145); Total Bilirubin 0.6 mg/dl (0.2-1.3); Total Protein 6.7 g/dl (6.3-8.2); eGFR 18.43
[2024-08-30 15:42] LABS: Hepatitis B Surface Antigen Negative (Negative)
[2024-08-30 16:00] LABS: Hepatitis A Antibody, Total Positive (Negative); Hepatitis C Antibody Negative (Negative)
[2024-08-30 18:57] LABS: Hepatitis B Surface Antibody Negative
== END ==
LOC: REG 11:07
PROVIDERS: ATTENDING PHYSICIAN Internal Medicine Nephrology; FAMILY PHYSICIAN Internal Medicine
DX: N18.4 Chronic kidney disease, stage 4 (severe) (principal); N13.2 Hydronephrosis with renal and ureteral calculous obstruction; D63.1 Anemia in chronic kidney disease; N18.5 Chronic kidney disease, stage 5; N39.0 Urinary tract infection, site not specified; N20.0 Calculus of kidney; E43 Unspecified severe protein-calorie malnutrition
CPT/HCPCS: 36415; 80053; 83735; 84100; 85025; 86706; 86708; 86803; 87340

== ENCOUNTER → 2024-09-03 10:35 | Outpatient (REF) | payer BC, SELFPAY ==
[2024-09-03 12:32] LABS: % Basophils 1.4 % (0-2); % Eosinophils 6.8 % (0-6); % Immature Granulocytes 0.2 % (0-0.5); % Lymphocytes 24.7 % (20.5-51.1); % Neutrophils 58.9 % (42.2-75.2); Absolute Basophils 0.1 10^3/uL (0-0.2); Absolute Eosinophils 0.3 10^3/uL (0-0.7); Absolute Lymphocytes 1.2 10^3/uL (1.2-3.4); Absolute Monocytes 0.4 10^3/uL (0.1-0.6); Hematocrit 31.5 % (37.0-47.0); Hemoglobin 10.5 g/dL (12.0-16.0); Mean Corp Hgb Conc. 33.3 g/dL (33.0-37.0); Mean Corpuscular Hgb 28.7 pg (27.0-31.0); Mean Corpuscular Volume 86.1 fL (81.0-99.0); Mean Platelet Volume 9.1 fL (7.4-10.4); Nucleated Red Blood Cells % 0 %; Platelet Count 343 10^3/uL (130-400); Red Blood Cell Count 3.66 10^6/uL (4.20-5.40); Red Cell Dist. Width 14.4 % (11.5-14.5)
[2024-09-03 12:42] LABS: ALT (SGPT) 19 U/L (0-35); AST (SGOT) 29 U/L (14-36); Albumin 4.2 g/dl (3.5-5.0); Alkaline Phosphatase 94 U/L (38-126); Blood Urea Nitrogen 29 mg/dl (7-17); Calcium 9.5 mg/dl (8.4-10.2); Carbon Dioxide 21 mmol/L (22-30); Chloride 93 mmol/L (98-107); Direct Bilirubin 0.4 mg/dl (0.0-0.4); Glucose 99 mg/dl (70-99); Phosphorus 4.8 mg/dl (2.5-4.5); Potassium 4.9 mmol/L (3.5-5.1); Sodium 125 mmol/L (135-145); Total Bilirubin 0.6 mg/dl (0.2-1.3); Total Protein 6.8 g/dl (6.3-8.2); eGFR 23.12
== END ==
LOC: REG 10:35
PROVIDERS: ATTENDING PHYSICIAN Internal Medicine Nephrology; FAMILY PHYSICIAN Internal Medicine
DX: N13.2 Hydronephrosis with renal and ureteral calculous obstruction (principal); N18.4 Chronic kidney disease, stage 4 (severe); N20.0 Calculus of kidney; E43 Unspecified severe protein-calorie malnutrition; D63.1 Anemia in chronic kidney disease
CPT/HCPCS: 36415; 80053; 82248; 83735; 84100; 85025

== ENCOUNTER → 2024-09-08 10:18 | Outpatient (REF) | payer BC, SELFPAY ==
[2024-09-08 10:49] LABS: % Basophils 1.6 % (0-2); % Eosinophils 11.7 % (0-6); % Immature Granulocytes 0.4 % (0-0.5); % Monocytes 7.1 % (1.7-9.3); % Neutrophils 50.2 % (42.2-75.2); Absolute Basophils 0.1 10^3/uL (0-0.2); Absolute Eosinophils 0.6 10^3/uL (0-0.7); Absolute Lymphocytes 1.6 10^3/uL (1.2-3.4); Absolute Monocytes 0.4 10^3/uL (0.1-0.6); Absolute Neutrophils 2.8 10^3/uL (1.4-6.5); Hemoglobin 11.5 g/dL (12.0-16.0); Mean Corp Hgb Conc. 33.8 g/dL (33.0-37.0); Mean Corpuscular Hgb 28.7 pg (27.0-31.0); Mean Corpuscular Volume 84.8 fL (81.0-99.0); Mean Platelet Volume 8.5 fL (7.4-10.4); Nucleated Red Blood Cells % 0 %; Platelet Count 328 10^3/uL (130-400); Red Blood Cell Count 4.01 10^6/uL (4.20-5.40); Red Cell Dist. Width 14.5 % (11.5-14.5); White Blood Cell Count 5.5 10^3/uL (4.8-10.8)
[2024-09-08 11:11] LABS: ALT (SGPT) 21 U/L (0-35); AST (SGOT) 33 U/L (14-36); Albumin 4.1 g/dl (3.5-5.0); Alkaline Phosphatase 98 U/L (38-126); Blood Urea Nitrogen 26 mg/dl (7-17); Calcium 10.1 mg/dl (8.4-10.2); Carbon Dioxide 22 mmol/L (22-30); Chloride 95 mmol/L (98-107); Glucose 93 mg/dl (70-99); Magnesium 2.1 mg/dl (1.6-2.3); Phosphorus 4.5 mg/dl (2.5-4.5); Potassium 6.1 mmol/L (3.5-5.1); Sodium 126 mmol/L (135-145); Total Bilirubin 0.5 mg/dl (0.2-1.3); Total Protein 6.6 g/dl (6.3-8.2); eGFR 21.01
== END ==
LOC: REG 10:18
PROVIDERS: ATTENDING PHYSICIAN Internal Medicine Nephrology; FAMILY PHYSICIAN Internal Medicine
DX: N18.4 Chronic kidney disease, stage 4 (severe) (principal); N13.2 Hydronephrosis with renal and ureteral calculous obstruction; N20.0 Calculus of kidney; E43 Unspecified severe protein-calorie malnutrition; D63.1 Anemia in chronic kidney disease
CPT/HCPCS: 36415; 80053; 83735; 84100; 85025

== ENCOUNTER → 2024-09-09 10:49 | Outpatient (REF) | payer BC, SELFPAY ==
[2024-09-09 11:58] LABS: Blood Urea Nitrogen 27 mg/dl (7-17); Calcium 10.1 mg/dl (8.4-10.2); Carbon Dioxide 19 mmol/L (22-30); Chloride 95 mmol/L (98-107); Glucose 83 mg/dl (70-99); Phosphorus 4.5 mg/dl (2.5-4.5); Potassium 6.3 mmol/L (3.5-5.1); Sodium 125 mmol/L (135-145); eGFR 21.01
== END ==
LOC: REG 10:49
PROVIDERS: ATTENDING PHYSICIAN Internal Medicine Nephrology; FAMILY PHYSICIAN Internal Medicine
DX: N18.5 Chronic kidney disease, stage 5 (principal); R63.4 Abnormal weight loss; E83.52 Hypercalcemia; E05.90 Thyrotoxicosis, unspecified without thyrotoxic crisis or storm; M20.11 Hallux valgus (acquired), right foot; K90.49 Malabsorption due to intolerance, not elsewhere classified
CPT/HCPCS: 36415; 80069

== ENCOUNTER 2024-09-09 19:37 | Inpatient (IN) | payer BC, SELFPAY ==
[2024-09-09] VITALS (9 sets, daily range): BP systolic 104–122; BP diastolic 61–80; BMI 10.5; BMI 10.7
[2024-09-09] MEDS: CALCIUM GLUCONATE 1000 MG IV (15:59)
[2024-09-09 16:01] LABS: Glucose - Point of Care 69 mg/dl (70-99)
[2024-09-09] MEDS: DEXTROSE 50% SYRINGE 25 GRAMS IV (16:03)
--- NOTE | 2024-09-09 16:08 | ED.GENMED ---
History of Present Illness
General
Chief Complaint: Abnormal Lab Value
Source: patient
Exam Limitations: none
Time Seen by Provider: 09/09/24 14:45
Nursing documentation reviewed up to this point in time: agreed with
History of Present Illness
History of Present Illness:
54-year-old female with past medical history as noted significant for malabsorptive syndrome and chronic cachexia, chronic kidney disease; she presents to the ER sent by outpatient food and drug inspector for worsening renal failure and hyperkalemia. Patient
is scheduled to initiate peritoneal dialysis 09/21/2023 as an outpatient. She normally follows with Dr. Carloz Atkins as outpatient food and drug inspector. She has had worsening malaise, pruritus over the past week. Outpatient labs yesterday showed
worsening creatinine, uremia, hyperkalemia to 6.1. Repeat labs today show uptrending potassium to 6.3. Referred to ER. Her main complaints are generalized body pain, severe pruritus. She denies significant amount of shortness of breath. Has not
noticed any edema.
Past History
Past History
ED Past Medical History: Cancer (Cervical CA), CHF, Renal failure (Chronic kidney disease), Hypothyroidism and Other (Lyme, Barrets esophagus, Pancreatic malobsorption, KIdney stones, Anemia, stage V kidney disease, LBBB)
ED Past Surgical History: Orthopedic (Bunionectomy, ), Urological (Nephrostomy, Right ureteral reimplantation, Stents, PE Pediatric cather placed for dialysis) and Other (Parathyroidectomy, Hernia repair)
Social History
Tobacco: Non-smoker
Alcohol: None
Drug: None
Personal:
Living: with family
Employment: Employed (Pharm sales)
Family History
Family History: Other (History her father has a 'weak heart')
Review of Systems
Review of Systems
All Other Systems: ROS reviewed and negative except as documented in HPI and ROS
Constitutional: Reports fatigue; Denies fever
Respiratory: Denies trouble breathing
Cardiac: Denies chest pain
ABD/GI: Denies abdominal pain
: Denies flank pain
Musculoskeletal: Reports muscle pain
Skin: Reports itching
Neurological: Denies headache
Phy Exam
Physical Exam
Physical Exam:
General: Awake, alert, cachectic
Head: Normocephalic, atraumatic
Eyes: Conjunctiva normal
Throat: Airway intact, handling secretions
Neck: Trachea midline, supple without meningismus
Lungs: Clear to auscultation bilaterally, no wheezing, rales, rhonchi
Heart: Regular rate and rhythm, no murmurs, gallops, or rubs
Abd: Soft, non distended, nontender
Neuro: No gross deficits
Skin: no rash
Extremities: No edema in extremities
Scores
Heart Failure Risk
Heart Failure Risk Score: Not Applicable
Heart Score for Chest Pain Patients
STEMI patient?: Not applicable
Withdrawal Assessment of Alcohol
Withdrawal Assessment Completed?: Not applicable
Course
Orders/Labs/Results
Orders:
Orders
09/09/24 12:20
Electrocardiogram (*1) Urgent
Reason for Study: Shortness of Breath
09/09/24 12:21
EKG- Treatment ONCE
09/09/24 14:48
Type+Screen Urgent
Complete Blood Count/With Diff Urgent
Comprehensive Metabolic Panel Urgent
09/09/24 15:48
Cardiac Monitoring- Treatment ONCE
Albuterol Sulfate [Ventolin Nebules] 10 mg INH R NOW STA
Calcium Gluconate 1,000 mg IV NOW STA
Dextrose 50%-Water [Dextrose 50% Syringe] 12.5 grams IV [id number] PRN
Dextrose 50%-Water [Dextrose 50% Syringe] 25 grams IV NOW STA
Insulin Human Regular [Novolin R] 5 units IV NOW STA
Sodium Bicarbonate 50 meq IV NOW STA
09/09/24 15:50
Bedside Glucose PRE IV Insulin- HyperK+ NOW
09/09/24 15:51
Urine Creatinine Urgent
Urine Protein Urgent
Urine Sodium Urgent
09/09/24 15:53
Osmolality, Random Urine Urgent
Urinalysis Reflex To Culture Urgent
09/09/24 16:00
Diphenhydramine [Benadryl] 25 mg IV NOW STA
Morphine Sulfate 2 mg IV NOW STA
09/09/24 16:02
NEPHROLOGY CONSULT Urgent
Consulting Provider: Daniel Colon
Was physician already notified: Yes
09/09/24 17:20
Bedside Glucose POST IV Insulin- HyperK+ Q1HX2,Q2HX2
09/09/24 18:20
Potassium Urgent
Comment: draw 2 hours after regular insulin IV administration
Abnormal Lab Results
09/09/24
15:59
POC Glucose 69 L mg/dl
(70-99)
Vital Signs
Initial and Last Documented VS:
Initial Vital Signs
Pulse Resp BP Pulse Ox
77 18 122/80 100
09/09/24 12:13 09/09/24 12:13 09/09/24 12:13 09/09/24 12:13
Last Documented Vital Signs
Pulse Resp BP Pulse Ox
68 12 112/76 100
09/09/24 14:30 09/09/24 14:30 09/09/24 14:00 09/09/24 14:00
MDM/Problems Addressed
Differential Diagnosis Includes:
Hyperkalemia, Uremia
MDM/Problems Addressed:
54-year-old female presents with worsening renal function and hyperkalemia as an outpatient. Referred by food and drug inspector to ER for treatment. She is scheduled to start PD in early September but renal function has been worsening. Labs drawn at 11 AM
show potassium of 6.3. She has metabolic acidosis, significant uremia, hyponatremia to 125. Send off urine studies. EKG reviewed question some peaking of the T waves. Will provide IV fluids, temporizing measures to include insulin/dextrose,
albuterol, calcium, bicarb. She says that she has not tolerated Lokelma or Kayexalate in the past and is refusing these medications. I did call her primary food and drug inspector to update, agrees with admission and medical management may need expedited
dialysis if unable to manage medically. Discussed with our food and drug inspector for consultation. Discussed with hospitalist for admission.
Chronic conditions affecting care:
Malabsorptive syndrome, chronic kidney disease
*Pulse Oximetry
Patient hypoxic: no
*EKG
Interpreted by ED Provider?: Yes
Heart Rate: 67
Rate: normal
Rhythm: sinus
[place]: left axis deviation
Interval: normal interval
QRS Pattern: wide non-specific
*Critical Care Note
Total Time (30-74mins, 75-104mins- exclusive of procedures): Not Applicable
Data Reviewed
Review of Other/Old Records Reveals: Labs and Records
Source: patient and records
Patient Management
Discussion with other providers: Hospitalist (Discussed with hospitalist), PCP (Discussed with patient's primary food and drug inspector) and Softlines Supervisor (Discussed with nephrology here)
Escalation/DeEscalation of care consider admission/obs:
Admission indicated
ED Attending Note
-
Portions of this chart may have been created with voice recognition software.� Occasional wrong word or��sound alike� substitutions may have occurred due to the inherent limitations of voice recognition software.
Discharge Plan
Departure
Patient Disposition: Admit
Date of Disposition: 09/09/24
Time of Disposition: 16:06
Admit to doctor: Leigh
Presentation/result/management discussed w/ accepting MD/DO: Hospitalist
Discharge Problem:
Renal failure, Acute uremia, Acute hyperkalemia
Prescriptions:
No Action
acetaminophen [Tylenol Extra Strength] 500 mg Tablet
1,000 mg PO BIDPRN PRN (Reason: mild pain)
levothyroxine 50 mcg Tablet
50 mcg PO DAILY
biotin 1,000 mcg Tablet,Chewable
1,000 mcg PO DAILY
Tums 300 mg (750 mg) Tablet,Chewable
600 mg PO QPM
aspirin 81 mg Tablet,Delayed Release (Dr/Ec)
162 mg PO DAILY
tramadol 50 mg Tablet
50 mg PO BIDPRN PRN (Reason: MODERATE PAINS)
lansoprazole 15 mg Capsule,Delayed Release(Dr/Ec)
15 mg PO DAILY
hydroxyzine HCl 10 mg Tablet
20 mg PO HS
cyclobenzaprine [Flexeril] 5 mg Tablet
5 mg PO HS
Veltassa 8.4 gram Powder In Packet
8.4 g PO DAILY
Referrals:
Cipriano Turner MD [Family Provider] -
Interventions
Interventions:
*Risk Screen - Suicide Last Done: 09/09/24 13:50
*General Assessment Last Done: 09/09/24 13:49
*Neglect/Abuse Screening Last Done: 09/09/24 13:49
*ED COVID-19 Vaccine History Last Done: 09/09/24 13:49
Discharge Date and Time
Print Language: SOUTH AFRICAN
[2024-09-09] MEDS: VENTOLIN NEBULES 10 MG INH (16:09)
[2024-09-09] MEDS: SODIUM BICARBONATE 50 MEQ IV (16:13)
[2024-09-09] MEDS: BENADRYL 25 MG IV ×3 (16:19→23:53)
[2024-09-09] MEDS: MORPHINE SULFATE 2 MG IV ×2 (16:20→18:59)
--- NOTE | 2024-09-09 16:48 | W.CON.NEPH ---
Consultation
-
Date/Time Consultation Requested: 09/09/2024 4 PM
Date/Time Consultation Performed: 09/09/2024 5 PM
Requesting Provider: Dr. Herring
Performing Provider: Dr. Colon
Reason for Consultation: Hyperkalemia, CKD
Medical History
-
Chief Complaint: Abnormal labs
History of Present Illness:
This is a 54-year-old female with very complex longstanding medical history which includes malabsorptive syndrome with chronic cachexia and low body mass. She has been evaluated extensively in the past with no significant diagnosis made. She also
has chronic kidney disease with creatinine running approximately 2.0-2.3 though based on her body size is calculate that her GFR is closer to 15 mL/min. Because of this plans for dialysis have already been made. She had previously been on
peritoneal dialysis in December although there were catheter issues and was ultimately removed. Her renal function remained stable fortunately that new plans were able to be made. She is to have a new peritoneal dialysis catheter in the first week of
September at [facility] because she required a pediatric catheter. However, she was sent to the emergency room because blood work is showing persistently elevated potassium levels now at 6.3. She said that she had started Veltassa only 1 week ago.
She had been on Lokelma previously and this had apparently caused significant issues that she was told that she could not take it any further. She does use Lasix only as needed though this does not appear to be very often at all. She has tried to
leave her diet as a low potassium and low-salt diet. She says that her blood pressures typically run in the 70 systolic range and that this is normal for her. She does have occasional lightheadedness though none recent. There is also been
interest that her adrenal axis is dysfunctional though blood work thus far has not disclosed any abnormalities. She did not take her Veltassa today.
Past Medical History
Malabsorptive issue, CKD 5, hypothyroidism, cervical cancer, left bundle branch block, calcium oxalate kidney stones, Junior's esophagus, hyperparathyroidism with parathyroidectomy, bunionectomy, nephrostomy, right ureteral reimplantation, ureteral
stents, prior peritoneal dialysis catheter placement and removal, hernia repair
Social History
Tobacco: Non-Smoker
Alcohol: None
Family History
Family History: Not Pertinent
Allergies / Home Medications
Allergy/AdvReac Type Severity Reaction Status Date / Time
fentanyl Allergy Unknown Verified 01/05/24 11:22
garlic Allergy GI upset, Verified 01/05/24 11:22
nausea,
vomiting
levofloxacin [From Levaquin] Allergy Rash Verified 01/05/24 11:22
nitrofurantoin Allergy tingling Verified 01/05/24 11:22
[From Macrobid] in hand
and feet
NSAIDS (Non-Steroidal Allergy kidney Verified 01/05/24 11:22
Anti-Inflamma disease
sulfamethoxazole Allergy ulcers Verified 01/05/24 11:22
[From Bactrim]
trimethoprim [From Bactrim] Allergy ulcers Verified 01/05/24 11:22
ADHESIVES Allergy Unknown Uncoded 01/05/24 11:22
dermabond Allergy infection Uncoded 01/05/24 11:22
�Medication �Instructions �Recorded �Confirmed �Type
acetaminophen 500 mg tablet 1,000 mg PO BIDPRN PRN mild pain 11/28/23 09/09/24 History
(Tylenol Extra Strength)
biotin 1,000 mcg chewable tablet 1,000 mcg PO DAILY 11/28/23 09/09/24 History
levothyroxine 50 mcg tablet 50 mcg PO DAILY 11/28/23 09/09/24 History
aspirin 81 mg tablet,delayed 162 mg PO DAILY 09/09/24 09/09/24 History
release
calcium carbonate (Tums) 600 mg PO QPM 09/09/24 09/09/24 History
cyclobenzaprine 5 mg tablet 5 mg PO HS 09/09/24 09/09/24 History
hydroxyzine HCl 10 mg tablet 20 mg PO HS 09/09/24 09/09/24 History
lansoprazole 15 mg capsule,delayed 15 mg PO DAILY 09/09/24 09/09/24 History
release
patiromer calcium sorbitex 8.4 8.4 g PO DAILY 09/09/24 09/09/24 History
gram oral powder packet (Veltassa)
tramadol 50 mg tablet 50 mg PO BIDPRN PRN MODERATE PAINS 09/09/24 09/09/24 History
Review of Systems
-
Generalized weakness, pruritus
No chest pain or shortness of breath. No edema no issues with urination
All other systems: Negative unless noted
Physical Exam
Vital Signs
Vital Signs
Pulse Resp BP Pulse Ox
68 12 112/76 100
09/09/24 14:30 09/09/24 14:30 09/09/24 14:00 09/09/24 14:00
Lab Results
eGFR Cancelled 09/09/24 12:20
Laboratory Tests
08/30/24 09/03/24 09/08/24
11:28 10:50 10:42
Sodium 130 L 125 L 126 L
Potassium 5.6 H 4.9 6.1 H*
Chloride
Carbon Dioxide 19 L 21 L 22
BUN
Creatinine 2.9 H 2.4 H 2.6 H
Phosphorus 4.5
Albumin 4.1
09/09/24
11:03
Sodium 125 L
Potassium 6.3 H*
Chloride 95 L
Carbon Dioxide 19 L
BUN 27 H
Creatinine 2.6 H
Phosphorus
Albumin
CT abdomen and pelvis without IV contrast on August 24, 2024
IMPRESSION:
1. Nonobstructive left nephrolithiasis. No right renal calculi. Within the limitations, no ureteral calculi are identified.
2. 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
3. Unchanged chronic benign subcentimeter pulmonary nodules as above.
Physical Exam
Patient is awake alert oriented and in no distress. Overall very cachectic looking. Mood and affect were pleasant, insight and judgment were good. Pupils are equal round and reactive to light, extraocular movements are intact, sclera were
anicteric. Hearing was normal, ears and nose are intact. Oropharynx was clear. Neck was supple with trachea midline and no thyromegaly. Heart was regular rate and rhythm without rubs. Lower extremities without edema. Lungs were clear to
auscultation bilaterally and with normal excursion. Abdomen was soft, nontender, with normal active bowel sounds, and no hepatosplenomegaly. Skin was without rash and with normal turgor.
Data Reviewed
-
CT Scan: Report Reviewed by me
Medical Tests (Nuc Med, Echo etc): Image Personally Visualized and interpreted (EKG on 09/09/2024 by my reading shows normal sinus rhythm left axis deviation anterior septal Q)
Labs: Labs Reviewed by me
Old Records: Reviewed
Assessment/Plan
-
Assessment
CKD 5
hyperkalemia
Hyponatremia
metabolic acidosis
Cachexia
Hypotension
Absorption
History hyperparathyroidism with parathyroidectomy
RSD
Plan
I discussed with the patient as well as her family at this time regarding her hyperkalemia. We will need to control this medically at this time. We discussed dialysis previously and she has already considered her various options. Hemodialysis was
not an option for her given her RSD and inability to maintain catheters or even a fistula. There for peritoneal dialysis is her only option for dialysis. On top of that, she requires a pediatric catheter as she has no body fat. This would exclude
acute dialysis as an option and is not offered at this institution anyways.
She will need to continue Veltassa at this time as she cannot take Lokelma. The family will bring in her Veltassa. It should be continued daily
Insulin and D50 will be given with serial BMP
I will offer saline at 40 cc/h (less than 5% body weight) with Lasix 20 mg IV at 8 PM
We may also consider using Florinef though this is not a acute solution and may also still cause significant edema long-term.
Check urine studies as well as ARR
[2024-09-09 16:50] LABS: Urine Albumin Trace (Neg - Trace); Urine Bilirubin 1+ (Negative); Urine Character Very Cloudy (Clear); Urine Color Yellow; Urine Glucose Negative (Negative); Urine Ketone Negative (Negative); Urine Leukocyte 2+ (Negative); Urine Nitrite Negative (Negative); Urine Occult Blood Trace (Negative); Urine Urobilinogen Negative (Neg - 1+)
[2024-09-09 16:55] LABS: Osmolality Urine 341 mOsm/kg (300-900)
[2024-09-09 16:56] LABS: Urine Squamous Cell 0-2 /LPF (Few)
[2024-09-09 16:57] LABS: Urine Bacteria Many (Negative); Urine Calcium Oxalate Crystals Present; Urine White Cell 30-40 /HPF (0-5)
[2024-09-09 17:16] LABS: Urine Protein 27 mg/dl (0-12)
--- NOTE | 2024-09-09 17:23 | HPS.HSE ---
Family Physician
-
Family Physician: Cipriano Turner
Chief Complaint
-
Hyperkalemia Secondary to Chronic Kidney Disease
History of Present Illness
54 year old female with a past medical history of malabsorptive syndrome, chronic cachexia, chronic kidney disease, and low body mass comes to the ED with worsening renal function. She was sent by her outpatient field support representative Dr. Carloz Atkins to
get labs done and she was found to be hyperkalemic. She has been feeling weak and pruritic over the past week which she has been attributing to her worsening kidney function. Her labs showed her potassium levels to be 6.1 yesterday and repeat labs
today showed it was trending upwards to 6.3. Patient was started on Veltassa for hyperkalemia 1 week ago as she was getting side effects from Lokelma which she was on previously. Other than nausea and some itchiness which has resolved, patient has
no other complaints.
Medical History
Past Medical History
Past Medical History: Reports Cancer (Cervical), CHF, Hypothyroidism, Renal Failure (Chronic Kidney Disease) and Other (Malabsorption Syndrome, Kidney Stones, Anemia, LBBB)
Past Surgical History: Reports Orthopedic (Bunionectomy), Urological (Nephrostomy, Right Ureteral Reimplantation, Stents, PE Pediatric Catheter for dialysis)) and Other (Parathyroidectomy, Hernia Repair)
Social History
Tobacco: Non-smoker
Alcohol: None
Drug: None
Personal:
Living: With Family
Employment: Employed (Pharm Sales)
Family History
Family History: Not pertinent
Allergies / Home Medications
Allergies reflects when Allergies were last updated in [facility].
Home Medications with original date entered in [facility]
Allergy/Medication List:
Allergies
Allergy/AdvReac Type Severity Reaction Status Date / Time
fentanyl Allergy HALLUCINATI Verified 09/09/24 17:06
ONS
garlic Allergy GI upset, Verified 01/05/24 11:22
nausea,
vomiting
levofloxacin [From Levaquin] Allergy Rash Verified 01/05/24 11:22
nitrofurantoin Allergy tingling Verified 01/05/24 11:22
[From Macrobid] in hand
and feet
NSAIDS (Non-Steroidal Allergy kidney Verified 01/05/24 11:22
Anti-Inflamma disease
sulfamethoxazole Allergy ulcers Verified 01/05/24 11:22
[From Bactrim]
trimethoprim [From Bactrim] Allergy ulcers Verified 01/05/24 11:22
ADHESIVES Allergy Unknown Uncoded 01/05/24 11:22
dermabond Allergy infection Uncoded 01/05/24 11:22
Home Medications
acetaminophen 500 mg tablet (Tylenol Extra Strength) 1,000 mg PO BIDPRN PRN mild pain 11/28/23
biotin 1,000 mcg chewable tablet 1,000 mcg PO DAILY 11/28/23
levothyroxine 50 mcg tablet 50 mcg PO DAILY 11/28/23
aspirin 81 mg tablet,delayed release 162 mg PO DAILY 09/09/24
calcium carbonate (Tums) 600 mg PO QPM 09/09/24
cyclobenzaprine 5 mg tablet 5 mg PO HS 09/09/24
hydroxyzine HCl 10 mg tablet 20 mg PO HS 09/09/24
lansoprazole 15 mg capsule,delayed release 15 mg PO DAILY 09/09/24
patiromer calcium sorbitex 8.4 gram oral powder packet (Veltassa) 8.4 g PO DAILY 09/09/24
tramadol 50 mg tablet 50 mg PO BIDPRN PRN MODERATE PAINS 09/09/24
Review of Systems
-
History Source: Patient
Constitutional: Reports Fatigue
EENT: Reports No Symptoms
Respiratory: Denies Cough or Trouble Breathing
Cardiac: Reports Palpitations; Denies Chest Pain
Abdomen/GI: Denies Abdominal Pain, Nausea or Vomiting
: Reports No Symptoms
Musculoskeletal: Reports No Symptoms
Skin: Reports Itching
Neurological: Reports No Symptoms
Endocrine: Reports No Symptoms
Hematologic/Lymphatic: Reports No Symptoms
Psych: Reports Calm
Physical Exam
Vital Signs
Vital Signs
Pulse Resp BP Pulse Ox
68 12 112/76 100
09/09/24 14:30 09/09/24 14:30 09/09/24 14:00 09/09/24 14:00
Physical Exam
General: No Apparent Distress, Comfortable, Conversant, Appears Chronically Ill and Cachectic
HEENT: NormoCephalic, Anicteric, Moist mucous membranes and Atraumatic
Respiratory: Clear and Non Labored Respirations
Cardiac: S1/S2 and Regular Rhythm
GI: Soft, Non Tender and Non Distended
Musculoskeletal: No Clubbing, No Cyanosis and No Edema
Skin: Warm
Neuro: Awake, Alert, Oriented and AO x 3
Psych: Calm
Laboratory Results
-
Laboratory Results
Total Bilirubin Cancelled 09/09/24 12:20
AST Cancelled 09/09/24 12:20
ALT Cancelled 09/09/24 12:20
Alkaline Phosphatase Cancelled 09/09/24 12:20
Troponin I Cancelled 09/09/24 12:21
Data Reviewed
-
Lab Data: Labs Reviewed by me, Discussed with Physician, Discussed with Patient and Discussed with Family
Impression/Plan
-
Assessment:
54 year old female with a past medical history of malabsorptive syndrome, chronic chachexia, and chronic kidney disease comes to the hospital due to worsening renal failure and hyperkalemia. Patient is currently in much pain and says that she has
heart palpitations.
Plan:
#Hyperkalemia Secondary to worsening Kidney Disease
-Admit to telemetry
-Nephrology consulted, input appreciated
-Patient on Veltassa at home for hyperkalemia as unable to tolerate Lokelma
-Was planning on starting peritoneal dialysis on 09/21/2023
-Continue to manage medically at this time as per Nephro, will determine if dialysis is necessary here
-Serial BMPs, continue to follow creatinine and Potassium
-Insulin and D50 as according to BMP
-Continue home Veltassa at this time
-Saline and Lasix at this time
-Check urine studies
#Hyponatremia
-Continue management as per nephrology
-Check urine studies
-Monitor BMP
-Check aldosterone/renin ratio
#Low BMI (10.5)
-Due to malabsorption syndrome and chronic kidney disease
-Manuscripts Curator consulted for consideration of TPN
-Calorie Counting
-Continue home vitamin therapy
#Pruritis
-Benadryl PRN
#Hypothyroidism
-Continue Levothyroxine
#Myalgia
-Pain medication as needed
#Nausea
-Scopolamine PRN as needed
Code: Limited DNR (No Intubation)
DVT Prophylaxis: Heparin
[2024-09-09] MEDS: NSS 1000 IV (17:32)
[2024-09-09 17:53] LABS: Urine Potassium 90.3 mmol/L (30-90); Urine Sodium 9 mmol/L (30-90)
[2024-09-09 18:05] LABS: Glucose - Point of Care 131 mg/dl (70-99)
[2024-09-09 20:06] LABS: Glucose - Point of Care 102 mg/dl (70-99)
[2024-09-09] MEDS: LASIX 20 MG IV (20:09)
[2024-09-09 21:50] LABS: Glucose - Point of Care 85 mg/dl (70-99)
[2024-09-09] MEDS: FLEXERIL 5 MG PO (22:08)
[2024-09-09] MEDS: TUMS EX (EXTRA STRENGTH) CHEWABLE TABLET 600 MG PO (22:09)
[2024-09-09] MEDS: ATARAX 20 MG PO (22:09)
[2024-09-09] MEDS: ULTRAM 50 MG PO (22:18)
--- NOTE | 2024-09-09 23:00 | PTCARENOTE ---
Patient received from ED via stretcher. Patient cacehtic and frail in appearance, patient assisted to bed. Patient reports generalized pain 6/10, patient reports that Tramadol and Tylenol do not help relieve her pain. This RN notified Selam
RESHMA Bah of patient request to receive Dilaudid IV as this was the only thing that helped relieve her pain in the past. Per RESHMA Bah, patient needs to try Tramadol first before additional pain medication is ordered. Care ongoing, will
monitor.
[2024-09-09] MEDS: TRANSDERM-SCOP 1 PATCH TRANSDERM (23:11)
[2024-09-09 23:18] LABS: Osmolality Serum 283 mOsm/kg (275-300)
[2024-09-09 23:22] LABS: Blood Urea Nitrogen 27 mg/dl (7-17); Calcium 9.8 mg/dl (8.4-10.2); Carbon Dioxide 27 mmol/L (22-30); Chloride 95 mmol/L (98-107); Estimated Creatinine Clearance 11 ml/min; Glucose 105 mg/dl (70-99); Potassium 4.2 mmol/L (3.5-5.1); Sodium 130 mmol/L (135-145); eGFR 22.02
[2024-09-10] MEDS: DILAUDID 0.25 MG IV (02:36)
[2024-09-10 03:00] VITALS: BP 104/69
[2024-09-10] MEDS: SYNTHROID 50 MCG PO (06:00)
[2024-09-10 06:10] VITALS: BP 105/75
--- NOTE | 2024-09-10 06:23 | PTCARENOTE ---
This RN went in to give patient 0600 Synthroid and found patient sitting on edge of bed, appearing disoriented. Patient able to say where she was and her birthday but unable to answer any further orientation questions correctly. Vitals WNL. Neuro
assessment WNL. Patient noted to have some difficulty word finding and moments of incomprehensible speech. Patient received Dilaudid 0.25mg at 0236 for 10/10 generalized pain that was not relieved with Tramadol. Patient reported the only thing that
had worked in the past for her was IV Dilaudid. RESHMA Berry called and asked to come assess patient. RESHMA and RN in room with patient, patient appeared to be less confused. Plan per RESHMA is to hold off on any narcotics at this time. Care
ongoing, will monitor.
[2024-09-10 07:00] VITALS: BP 111/74
[2024-09-10] MEDS: ASPIR LOW (ENTERIC COATED) 162 MG PO (08:45)
[2024-09-10] MEDS: PROTONIX 20 MG PO (08:45)
--- NOTE | 2024-09-10 10:36 | W.PN.NEPH.PH ---
Addendum entered and electronically signed by Daniel Colon MD 09/10/24 10:42:
TTKG as best as can be calculated ~11 (appropriate)
Original Note:
Today's Communication / Plan
-
follow BMP
Assessment/Plan
-
Assessment
CKD 5
hyperkalemia
Hyponatremia
metabolic acidosis
Cachexia
Hypotension
Absorption
History hyperparathyroidism with parathyroidectomy
RSD
Plan
confusion related to opiates (family relays another incidnet previously with fentanyl resulting in confusion)
continue IVF for now, lasix later today if still here
renal issues are stable, labs are improved. could leave with continued OP f/u
continue veltassa
check BMP next week with OP nephro
-
-
Date of Service: September 10, 2024
CC / HPI / ROS
-
Chief Complaint:
hyperkalemia
History of Present Illness:
K normal 4.2
Na stable low 130
BP stable
received morphine overnight
Review of Systems:
no CP/SOB
slightly confused
Labs
-
Labs:
WBC Cancelled 09/09/24 14:48
RBC Cancelled 09/09/24 14:48
Hgb Cancelled 09/09/24 14:48
Hct Cancelled 09/09/24 14:48
Plt Count Cancelled 09/09/24 14:48
Sodium 130 mmol/L (135-145) L 09/09/24 22:58
Potassium 4.2 mmol/L (3.5-5.1) D 09/09/24 22:58
Chloride 95 mmol/L (98-107) L 09/09/24 22:58
Carbon Dioxide 27 mmol/L (22-30) 09/09/24 22:58
BUN 27 mg/dl (7-17) H 09/09/24 22:58
Creatinine 2.5 mg/dL (0.6-1.0) H 09/09/24 22:58
eGFR 22.02 09/09/24 22:58
Glucose 105 mg/dl (70-99) H 09/09/24 22:58
Calcium 9.8 mg/dl (8.4-10.2) 09/09/24 22:58
Albumin Cancelled 09/09/24 14:48
Physical Exam
-
Vital Signs:
Vital Signs
Temp Pulse Resp BP Pulse Ox
98.8 F 78 18 111/74 100
09/10/24 07:00 09/10/24 07:00 09/10/24 07:00 09/10/24 07:00 09/10/24 07:00
Cardiovascular:: Regular rate and rhythm
Respiratory:: Bilateral: CTA
Lung Excursion:: Normal
Abdomen:: Nontender and Soft
Bowel Sounds:: Normal
Extremity Edema:: None: Bilateral:
[2024-09-10 11:00] VITALS: BP 116/74
[2024-09-10] MEDS: LASIX 20 MG IV (13:38)
[2024-09-10 15:00] VITALS: BP 103/70
--- NOTE | 2024-09-10 15:16 | W.PN.HOSP.TC ---
Today's Communication/Plan
-
Repeat BMP in the morning
Monitor mental status for resolution of drug-induced lethargy
Likely discharge tomorrow morning
Assessment / Plan
Assessment / Plan
#Hyperkalemia secondary to CKD stage V
#CKD stage V due to recurrent nephrolithiasis and strict
-Presented with persistent hyperkalemia requiring temporization
-Home medications include Veltassa; have resumed today
-Nephrology following, potassium has since normalized
-Trending BMP daily at this point
-Avoid NSAIDs and potassium retaining meds
-Resolved
#Toxic metabolic encephalopathy
-Likely secondary to Dilaudid, Benadryl which were given overnight
-Will discontinue as needed opiates, continue with Benadryl as needed for pruritus
-Improving over the course of the day
#Hyponatremia
-Continue management as per nephrology
-Check urine studies
-Monitor BMP
-F/U aldosterone/renin ratio
#Severe protein calorie malnutrition
#Fat malabsorption of unspecified etiology
-Due to malabsorption syndrome and chronic kidney disease
-Has fat malabsorption, undergone extensive testing without diagnosis
-Farmworker G[employer] consulted
-Calorie Counting
-Continue home vitamin therapy
-Encouraged follow-up with OP physicians for consideration of tPA
#Pruritis
-Benadryl PRN
#Myalgia
-Pain medication as needed
-Avoid opiates as possible
#Nausea
-Scopolamine PRN as needed
#H/O parathyroidectomy
#Postoperative hypothyroidism
-Suspect primary hyperparathyroidism as etiology, previously with hypercalcemia that caused recurrent nephrolithiasis
-Postsurgical hypothyroidism following parathyroidectomy, on levothyroxine regimen
Code: Limited DNR (No Intubation)
DVT Prophylaxis: Heparin
Anticipated Discharge: Within 24 hours
Subjective/Interval History
-
Date of Service: September 10, 2024
Seen and examined at the bedside. Overnight she received Benadryl for her pruritus as well as a dose of IV Dilaudid for pain. As of this morning she seemed lethargic/slightly encephalopathic.
Family at bedside, states that she has had similar experiences with opiates in the past. Renal function stable, hyperkalemia improved
Denies any acute complaints.
Objective Data
-
Vital Signs:
Vital Signs
Temp Pulse Resp BP Pulse Ox
97.1 F 88 17 116/74 100
09/10/24 11:00 09/10/24 11:00 09/10/24 11:00 09/10/24 11:00 09/10/24 11:00
I&O
09/09/24 09/10/24 09/11/24
06:59 06:59 06:59
Intake Total 120 / 120
Balance 120 / 120
Review of Systems
-
History Source: Patient
All other systems: Reviewed and negative
Physical Exam
-
General: Well Developed, No Apparent Distress, Comfortable and Cachectic
HEENT: Normocephalic, Atraumatic, Moist Mucous Membranes and Anicteric
Respiratory: Clear to Auscultation and Non Labored Respirations
Cardiac: Regular Rhythm and S1/S2; Negative Murmur, Rub or Gallop
GI: Soft, Nontender, Nondistended and Normal Bowel Sounds
Musculoskeletal: No Clubbing, No Cyanosis and No Edema
Neuro: AO x 3 and Nonfocal/Grossly Intact
Psych: Calm
Data Reviewed
-
Labs: Labs Reviewed by me, Discussed with Patient and Discussed with Family
--- NOTE | 2024-09-11 08:43 | CM ---
Addendum for 09/10/24 Alert awake oriented patient who lives alone but has supportive mom Candice.Pt is to start PD 09/21/24. Admitted for abnormal labs .She is independent in all activities of daily living.
No adaptive devices
Pharmacy [facility]
PCP Dr Cipriano Reis
PLAN Home no needs Pt left after CM after hours
--- NOTE | 2024-09-11 15:44 | W.DCSUMMARY ---
Discharge Summary
Discharge Data
Date of Admission: 09/09/24
Date of Discharge: 09/11/24
-
Pending Results: No
Hospital Course
54-year-old female with CKD stage V secondary to recurrent nephrolithiasis and urinary stricture, unspecified fat malabsorption syndrome with severe protein calorie malnutrition (BMI 10), iatrogenic hypothyroidism, history of parathyroidectomy,
history of Lyme disease, history of RSD that presented to the hospital with abnormal outpatient labs showing hyperkalemia. Upon arrival to the ED was temporized with IV insulin, calcium gluconate, albuterol, 1 amp of dextrose. Was evaluated by
nephrology, started on light IV fluids with doses of Lasix. Patient brought in [facility] from home and it was provided to her in the hospital. Labs were checked every 6 hours, potassium critically corrected. Her symptoms of pruritus were improved
with as needed Benadryl. Recommended to have repeat BMP 5 days after discharge with follow-up with her primary city manager at [facility]. Can continue Benadryl as needed for pruritus. Information provided for low potassium diet.
Spoke with patient about TPN, states that she had discussed the subject with her primary physicians. Stated that they wanted to hold off on starting TPN until other methods for feeding and optimizing absorption were tried first. Will defer
initiation of TPN to her primary physicians. With her severe cachexia she would likely benefit in the short-term from TPN. However, long-term TPN likely with significant complications
Discharge Plan
-
Patient Disposition: Home (Routine Discharge)
Discharge Diagnosis/Procedures: Hyperkalemia
Pruritus
Condition: Fair
Diet: No restrictions
Activity: As tolerated
Driving Restrictions: As prior to admission
Bathing Restrictions: None
Blood Work: BMP on Thu/Thu after discharge (contact city manager to get lab order)
Activity Restrictions/Additional Instructions:
Schedule follow up appointment with your family doctor and city manager after discharge. Should be seen in the office within 1-2 weeks of discharge
Instructions: Hyperkalemia
Referrals:
Carloz Atkins, [Non-Admitting Privileges] - in one to two weeks
Cipriano Turner MD [Family Provider] -
Additional Discharge Medication Instructions: No medication changes made
Use OTC benadryl as needed for pruritus
Prescriptions:
Continued
acetaminophen [Tylenol Extra Strength] 500 mg Tablet
1,000 mg PO BIDPRN PRN (Reason: mild pain)
levothyroxine 50 mcg Tablet
50 mcg PO DAILY
biotin 1,000 mcg Tablet,Chewable
1,000 mcg PO DAILY
Tums 300 mg (750 mg) Tablet,Chewable
600 mg PO QPM
aspirin 81 mg Tablet,Delayed Release (Dr/Ec)
162 mg PO DAILY
tramadol 50 mg Tablet
50 mg PO BIDPRN PRN (Reason: MODERATE PAINS)
lansoprazole 15 mg Capsule,Delayed Release(Dr/Ec)
15 mg PO DAILY
hydroxyzine HCl 10 mg Tablet
20 mg PO HS
cyclobenzaprine 5 mg Tablet
5 mg PO HS
Veltassa 8.4 gram Powder In Packet
8.4 g PO DAILY
Discharge Orders:
Discharge Patient (As Directed); Ordered 09/10/24
Ordered By: Jevon Bond
Discharge Date and Time
Discharge Date/Time: 09/10/24 17:43
Print Language: TAMAZIGHT
[2024-09-14 09:29] LABS: Aldosterone/Renin Activ Ratio 50.4 ratio (<=25.0); Renin Activity Results 25.7 ng/mL/hr
== END 2024-09-10 17:43 | disposition home or self-care (01) | DRG 640 ==
LOC: 3 WEST ACU 19:37
PROVIDERS: ADMITTING PHYSICIAN Internal Medicine; CONSULT PHYSICIAN Specialist; EMERGENCY PHYSICIAN Emergency Medicine; FAMILY PHYSICIAN Internal Medicine
DX: E87.5 Hyperkalemia (principal); E43 Unspecified severe protein-calorie malnutrition; G92.8 Other toxic encephalopathy; N18.5 Chronic kidney disease, stage 5; R64 Cachexia; N17.9 Acute kidney failure, unspecified; Z68.1 Body mass index [BMI] 19.9 or less, adult; E87.20 Acidosis, unspecified; E87.1 Hypo-osmolality and hyponatremia; L29.9 Pruritus, unspecified; D64.9 Anemia, unspecified; E89.0 Postprocedural hypothyroidism; I95.9 Hypotension, unspecified; K21.9 Gastro-esophageal reflux disease without esophagitis; E78.5 Hyperlipidemia, unspecified; E21.3 Hyperparathyroidism, unspecified; K22.70 Barrett's esophagus without dysplasia; E16.2 Hypoglycemia, unspecified; I44.7 Left bundle-branch block, unspecified; I50.9 Heart failure, unspecified; Z66 Do not resuscitate; Z60.2 Problems related to living alone; Z85.41 Personal history of malignant neoplasm of cervix uteri; Z82.49 Family history of ischemic heart disease and other diseases of the circulatory system; Z79.890 Hormone replacement therapy; Z79.82 Long term (current) use of aspirin; Z88.1 Allergy status to other antibiotic agents; Z88.3 Allergy status to other anti-infective agents; Z88.5 Allergy status to narcotic agent; Z88.2 Allergy status to sulfonamides; Z91.018 Allergy to other foods; Z91.048 Other nonmedicinal substance allergy status; Z86.73 Personal history of transient ischemic attack (TIA), and cerebral infarction without residual deficits
CPT/HCPCS: 36415; 80048; 80069; 81003; 81015; 82088; 82570; 82962; 83930; 83935; 84133; 84156; 84244; 84300; 87077; 87086; 87186; 93005; 94640; 96374; 96375; 99285

== ENCOUNTER → 2024-09-21 09:40 | Outpatient (REF) | payer BC, SELFPAY ==
[2024-09-21 10:25] LABS: Albumin 3.8 g/dl (3.5-5.0); Blood Urea Nitrogen 23 mg/dl (7-17); Calcium 8.3 mg/dl (8.4-10.2); Carbon Dioxide 23 mmol/L (22-30); Chloride 97 mmol/L (98-107); Glucose 87 mg/dl (70-99); Phosphorus 5.2 mg/dl (2.5-4.5); Potassium 5.5 mmol/L (3.5-5.1); Sodium 130 mmol/L (135-145); eGFR 20.08
== END ==
LOC: REG 09:40
PROVIDERS: ATTENDING PHYSICIAN Family Medicine Sports Medicine; FAMILY PHYSICIAN Internal Medicine
DX: N18.5 Chronic kidney disease, stage 5 (principal); E83.52 Hypercalcemia; M20.11 Hallux valgus (acquired), right foot; E05.90 Thyrotoxicosis, unspecified without thyrotoxic crisis or storm; K90.49 Malabsorption due to intolerance, not elsewhere classified; E87.0 Hyperosmolality and hypernatremia
CPT/HCPCS: 36415; 80069

== ENCOUNTER → 2024-09-22 14:45 | Outpatient (REF) | payer BC, SELFPAY | LOC: HWRAD 14:45 | PROVIDERS: ATTENDING PHYSICIAN Internal Medicine Nephrology; FAMILY PHYSICIAN Internal Medicine | DX: N20.0 Calculus of kidney (principal); N13.2 Hydronephrosis with renal and ureteral calculous obstruction; N18.4 Chronic kidney disease, stage 4 (severe); N17.9 Acute kidney failure, unspecified; E87.5 Hyperkalemia; E83.39 Other disorders of phosphorus metabolism | CPT/HCPCS: 74176 ==

== ENCOUNTER → 2024-09-24 09:46 | Outpatient (REF) | payer BC, SELFPAY ==
[2024-09-24 10:33] LABS: % Basophils 1.3 % (0-2); % Eosinophils 9.4 % (0-6); % Immature Granulocytes 0.2 % (0-0.5); % Lymphocytes 22.8 % (20.5-51.1); % Monocytes 8.1 % (1.7-9.3); % Neutrophils 58.2 % (42.2-75.2); Absolute Basophils 0.1 10^3/uL (0-0.2); Absolute Eosinophils 0.5 10^3/uL (0-0.7); Absolute Lymphocytes 1.2 10^3/uL (1.2-3.4); Absolute Monocytes 0.4 10^3/uL (0.1-0.6); Absolute Neutrophils 3.2 10^3/uL (1.4-6.5); Hematocrit 32.3 % (37.0-47.0); Hemoglobin 10.3 g/dL (12.0-16.0); Mean Corp Hgb Conc. 31.9 g/dL (33.0-37.0); Mean Corpuscular Hgb 28.7 pg (27.0-31.0); Mean Platelet Volume 8.8 fL (7.4-10.4); Nucleated Red Blood Cells % 0 %; Platelet Count 332 10^3/uL (130-400); Red Blood Cell Count 3.59 10^6/uL (4.20-5.40); Red Cell Dist. Width 14.1 % (11.5-14.5); White Blood Cell Count 5.4 10^3/uL (4.8-10.8)
[2024-09-24 10:47] LABS: ALT (SGPT) 19 U/L (0-35); AST (SGOT) 27 U/L (14-36); Albumin 3.8 g/dl (3.5-5.0); Alkaline Phosphatase 99 U/L (38-126); Blood Urea Nitrogen 24 mg/dl (7-17); Calcium 9.7 mg/dl (8.4-10.2); Carbon Dioxide 16 mmol/L (22-30); Chloride 99 mmol/L (98-107); Glucose 91 mg/dl (70-99); Phosphorus 5.6 mg/dl (2.5-4.5); Potassium 5.7 mmol/L (3.5-5.1); Sodium 128 mmol/L (135-145); Total Bilirubin 0.4 mg/dl (0.2-1.3); Total Protein 6.4 g/dl (6.3-8.2); eGFR 18.43
== END ==
LOC: REG 09:46
PROVIDERS: ATTENDING PHYSICIAN Internal Medicine Hematology & Oncology; FAMILY PHYSICIAN Internal Medicine; REFERRING PHYSICIAN Internal Medicine Nephrology
DX: D64.9 Anemia, unspecified (principal); D63.1 Anemia in chronic kidney disease; M81.8 Other osteoporosis without current pathological fracture; R63.4 Abnormal weight loss; D75.89 Other specified diseases of blood and blood-forming organs; N18.4 Chronic kidney disease, stage 4 (severe); R64 Cachexia; N13.2 Hydronephrosis with renal and ureteral calculous obstruction; N20.0 Calculus of kidney; E43 Unspecified severe protein-calorie malnutrition; N17.9 Acute kidney failure, unspecified; E87.5 Hyperkalemia; E83.39 Other disorders of phosphorus metabolism
CPT/HCPCS: 36415; 80053; 84100; 85025

== ENCOUNTER → 2024-10-01 09:00 | Outpatient (REF) | payer BC, SELFPAY ==
[2024-10-01 10:07] LABS: Albumin 3.7 g/dl (3.5-5.0); Blood Urea Nitrogen 25 mg/dl (7-17); Calcium 9.5 mg/dl (8.4-10.2); Carbon Dioxide 22 mmol/L (22-30); Chloride 99 mmol/L (98-107); Glucose 73 mg/dl (70-99); Phosphorus 4.3 mg/dl (2.5-4.5); Potassium 5.5 mmol/L (3.5-5.1); Sodium 131 mmol/L (135-145); eGFR 20.08
== END ==
LOC: REG 09:00
PROVIDERS: ATTENDING PHYSICIAN Internal Medicine Nephrology; FAMILY PHYSICIAN Internal Medicine
DX: N18.5 Chronic kidney disease, stage 5 (principal); E83.52 Hypercalcemia; E05.90 Thyrotoxicosis, unspecified without thyrotoxic crisis or storm; M20.11 Hallux valgus (acquired), right foot; K90.49 Malabsorption due to intolerance, not elsewhere classified
CPT/HCPCS: 36415; 80069

== ENCOUNTER → 2024-11-14 09:46 | Outpatient (REF) | payer BC, SELFPAY ==
[2024-11-14 10:13] LABS: % Basophils 0.9 % (0-2); % Immature Granulocytes 0.5 % (0-0.5); % Monocytes 6.5 % (1.7-9.3); % Neutrophils 58.1 % (42.2-75.2); Absolute Basophils 0.1 10^3/uL (0-0.2); Absolute Eosinophils 0.7 10^3/uL (0-0.7); Absolute Lymphocytes 1.2 10^3/uL (1.2-3.4); Absolute Monocytes 0.4 10^3/uL (0.1-0.6); Absolute Neutrophils 3.3 10^3/uL (1.4-6.5); Hemoglobin 8.1 g/dL (12.0-16.0); Mean Corp Hgb Conc. 32.4 g/dL (33.0-37.0); Mean Corpuscular Hgb 28.5 pg (27.0-31.0); Mean Platelet Volume 8.5 fL (7.4-10.4); Nucleated Red Blood Cells % 0 %; Platelet Count 397 10^3/uL (130-400); Red Blood Cell Count 2.84 10^6/uL (4.20-5.40); Red Cell Dist. Width 15.2 % (11.5-14.5); Reticulocyte Count 1.7 % (0.4-2.8); White Blood Cell Count 5.7 10^3/uL (4.8-10.8)
[2024-11-14 11:07] LABS: ALT (SGPT) 14 U/L (0-35); AST (SGOT) 27 U/L (14-36); Albumin 3.4 g/dl (3.5-5.0); Alkaline Phosphatase 96 U/L (38-126); Blood Urea Nitrogen 23 mg/dl (7-17); Calcium 7.5 mg/dl (8.4-10.2); Carbon Dioxide 19 mmol/L (22-30); Chloride 105 mmol/L (98-107); Glucose 75 mg/dl (70-99); Magnesium 1.8 mg/dl (1.6-2.3); Phosphorus 2.6 mg/dl (2.5-4.5); Potassium 4.5 mmol/L (3.5-5.1); Sodium 136 mmol/L (135-145); Total Bilirubin 0.6 mg/dl (0.2-1.3); Total Protein 5.7 g/dl (6.3-8.2); eGFR 30.61
== END ==
LOC: REG 09:46
PROVIDERS: ATTENDING PHYSICIAN Internal Medicine; FAMILY PHYSICIAN Internal Medicine Nephrology
DX: N18.4 Chronic kidney disease, stage 4 (severe) (principal); D64.9 Anemia, unspecified; E87.8 Other disorders of electrolyte and fluid balance, not elsewhere classified; E43 Unspecified severe protein-calorie malnutrition; N13.2 Hydronephrosis with renal and ureteral calculous obstruction; D63.1 Anemia in chronic kidney disease
CPT/HCPCS: 36415; 80053; 83735; 84100; 85025; 85045

== ENCOUNTER → 2024-11-21 10:19 | Outpatient (REF) | payer BC, SELFPAY ==
[2024-11-21 11:53] LABS: Urine Albumin 2+ (Neg - Trace); Urine Bilirubin Negative (Negative); Urine Character Clear (Clear); Urine Color Yellow; Urine Glucose Negative (Negative); Urine Ketone Negative (Negative); Urine Leukocyte 2+ (Negative); Urine Nitrite Negative (Negative); Urine Occult Blood Negative (Negative); Urine Specific Gravity 1.015 (<1.030); Urine Urobilinogen Negative (Neg - 1+)
[2024-11-21 12:06] LABS: ALT (SGPT) 19 U/L (0-35); AST (SGOT) 30 U/L (14-36); Albumin 3.4 g/dl (3.5-5.0); Alkaline Phosphatase 100 U/L (38-126); Blood Urea Nitrogen 19 mg/dl (7-17); Calcium 7.8 mg/dl (8.4-10.2); Carbon Dioxide 24 mmol/L (22-30); Chloride 105 mmol/L (98-107); Glucose 71 mg/dl (70-99); Phosphorus 3.4 mg/dl (2.5-4.5); Potassium 4.4 mmol/L (3.5-5.1); Sodium 136 mmol/L (135-145); Total Bilirubin 0.7 mg/dl (0.2-1.3); Total Protein 5.8 g/dl (6.3-8.2); eGFR 34.98
[2024-11-21 12:57] LABS: Urine Mucus Many
[2024-11-21 12:58] LABS: Urine Amorphous Seen; Urine Squamous Cell 16-20 /LPF (Few)
[2024-11-21 13:02] LABS: Urine Bacteria Many (Negative); Urine Red Blood Cell 0-2 /HPF (0-2)
[2024-11-21 13:04] LABS: Urine White Cell 40-50 /HPF (0-5)
== END ==
LOC: REG 10:19
PROVIDERS: ATTENDING PHYSICIAN Internal Medicine Nephrology; FAMILY PHYSICIAN Internal Medicine
DX: N20.0 Calculus of kidney (principal); N13.2 Hydronephrosis with renal and ureteral calculous obstruction; N18.4 Chronic kidney disease, stage 4 (severe); E43 Unspecified severe protein-calorie malnutrition; D63.1 Anemia in chronic kidney disease
CPT/HCPCS: 36415; 80053; 81003; 81015; 84100

== ENCOUNTER → 2024-11-28 09:27 | Outpatient (REF) | payer BC, SELFPAY ==
[2024-11-28 10:06] LABS: Ionized Calcium 1.03 mMOL/L (1.15-1.33)
[2024-11-28 10:27] LABS: Blood Urea Nitrogen 20 mg/dl (7-17); Calcium 7.7 mg/dl (8.4-10.2); Carbon Dioxide 23 mmol/L (22-30); Chloride 106 mmol/L (98-107); Glucose 65 mg/dl (70-99); Phosphorus 3.3 mg/dl (2.5-4.5); Potassium 4.6 mmol/L (3.5-5.1); Sodium 136 mmol/L (135-145); eGFR 32.66
[2024-11-28 11:07] LABS: Calcium 7.8 mg/dl (8.4-10.2)
[2024-11-28 11:27] LABS: Free T4 1.44 ng/dl (0.78-2.19)
[2024-11-28 11:37] LABS: Vitamin D, 25-OH*** 23.3 ng/mL (30-80)
[2024-11-28 11:41] LABS: TSH 0.03 uIU/ml (0.47-4.68)
[2024-11-28 13:29] LABS: Intact PTH < 3.4 pg/ml (13.6-85.8)
== END ==
LOC: REG 09:27
PROVIDERS: ATTENDING PHYSICIAN Internal Medicine; FAMILY PHYSICIAN Internal Medicine; REFERRING PHYSICIAN Internal Medicine Nephrology
DX: E03.9 Hypothyroidism, unspecified (principal); E20.9 Hypoparathyroidism, unspecified; E55.9 Vitamin D deficiency, unspecified; E43 Unspecified severe protein-calorie malnutrition; E87.1 Hypo-osmolality and hyponatremia; N18.4 Chronic kidney disease, stage 4 (severe); N13.2 Hydronephrosis with renal and ureteral calculous obstruction; N20.0 Calculus of kidney; D63.1 Anemia in chronic kidney disease
CPT/HCPCS: 36415; 80069; 82306; 82330; 83970; 84439; 84443

== ENCOUNTER → 2024-12-05 10:18 | Outpatient (REF) | payer BC, SELFPAY ==
[2024-12-05 11:52] LABS: Albumin 3.5 g/dl (3.5-5.0); Blood Urea Nitrogen 19 mg/dl (7-17); Calcium 8.4 mg/dl (8.4-10.2); Carbon Dioxide 31 mmol/L (22-30); Chloride 102 mmol/L (98-107); Glucose 75 mg/dl (70-99); Phosphorus 3.4 mg/dl (2.5-4.5); Sodium 139 mmol/L (135-145); eGFR 32.66
== END ==
LOC: REG 10:18
PROVIDERS: ATTENDING PHYSICIAN Internal Medicine Nephrology
DX: E43 Unspecified severe protein-calorie malnutrition (principal); E87.1 Hypo-osmolality and hyponatremia; N18.4 Chronic kidney disease, stage 4 (severe); N13.2 Hydronephrosis with renal and ureteral calculous obstruction; N20.0 Calculus of kidney; D63.1 Anemia in chronic kidney disease
CPT/HCPCS: 36415; 80069

== ENCOUNTER → 2024-12-12 09:55 | Outpatient (REF) | payer BC, SELFPAY ==
[2024-12-12 10:42] LABS: Blood Urea Nitrogen 22 mg/dl (7-17); Calcium 8.1 mg/dl (8.4-10.2); Carbon Dioxide 28 mmol/L (22-30); Chloride 104 mmol/L (98-107); Glucose 73 mg/dl (70-99); Phosphorus 3.9 mg/dl (2.5-4.5); Potassium 4.5 mmol/L (3.5-5.1); Sodium 136 mmol/L (135-145); eGFR 34.98
== END ==
LOC: REG 09:55
PROVIDERS: ATTENDING PHYSICIAN Internal Medicine Nephrology; FAMILY PHYSICIAN Internal Medicine
DX: E43 Unspecified severe protein-calorie malnutrition (principal); E87.1 Hypo-osmolality and hyponatremia; N18.4 Chronic kidney disease, stage 4 (severe); N13.2 Hydronephrosis with renal and ureteral calculous obstruction; N20.0 Calculus of kidney; D63.1 Anemia in chronic kidney disease
CPT/HCPCS: 36415; 80069

== ENCOUNTER → 2024-12-19 10:08 | Outpatient (REF) | payer BC, SELFPAY ==
[2024-12-19 11:12] LABS: Albumin 3.5 g/dl (3.5-5.0); Blood Urea Nitrogen 20 mg/dl (7-17); Calcium 8.3 mg/dl (8.4-10.2); Carbon Dioxide 24 mmol/L (22-30); Chloride 105 mmol/L (98-107); Glucose 71 mg/dl (70-99); Phosphorus 4.4 mg/dl (2.5-4.5); Potassium 4.1 mmol/L (3.5-5.1); Sodium 137 mmol/L (135-145); eGFR 37.62
== END ==
LOC: REG 10:08
PROVIDERS: ATTENDING PHYSICIAN Internal Medicine Nephrology; FAMILY PHYSICIAN Internal Medicine
DX: E43 Unspecified severe protein-calorie malnutrition (principal); E87.1 Hypo-osmolality and hyponatremia; N18.4 Chronic kidney disease, stage 4 (severe); N13.2 Hydronephrosis with renal and ureteral calculous obstruction; N20.0 Calculus of kidney; D63.1 Anemia in chronic kidney disease
CPT/HCPCS: 36415; 80069

== ENCOUNTER → 2024-12-26 09:16 | Outpatient (REF) | payer BC, SELFPAY ==
[2024-12-26 09:50] LABS: Albumin 3.4 g/dl (3.5-5.0); Blood Urea Nitrogen 15 mg/dl (7-17); Calcium 7.4 mg/dl (8.4-10.2); Carbon Dioxide 19 mmol/L (22-30); Chloride 109 mmol/L (98-107); Glucose 79 mg/dl (70-99); Phosphorus 3.6 mg/dl (2.5-4.5); Potassium 3.6 mmol/L (3.5-5.1); Sodium 137 mmol/L (135-145); eGFR 40.65
== END ==
LOC: REG 09:16
PROVIDERS: ATTENDING PHYSICIAN Internal Medicine Nephrology; FAMILY PHYSICIAN Internal Medicine
DX: E43 Unspecified severe protein-calorie malnutrition (principal); E87.1 Hypo-osmolality and hyponatremia; N18.4 Chronic kidney disease, stage 4 (severe); N13.2 Hydronephrosis with renal and ureteral calculous obstruction; N20.0 Calculus of kidney; D63.1 Anemia in chronic kidney disease
CPT/HCPCS: 36415; 80069

== ENCOUNTER → 2025-01-02 09:19 | Outpatient (REF) | payer BC, SELFPAY ==
[2025-01-02 10:22] LABS: Albumin 3.1 g/dl (3.5-5.0); Blood Urea Nitrogen 16 mg/dl (7-17); Calcium 7.3 mg/dl (8.4-10.2); Carbon Dioxide 22 mmol/L (22-30); Chloride 107 mmol/L (98-107); Glucose 72 mg/dl (70-99); Phosphorus 3.9 mg/dl (2.5-4.5); Potassium 4.1 mmol/L (3.5-5.1); Sodium 136 mmol/L (135-145); eGFR 44.16
== END ==
LOC: REG 09:19
PROVIDERS: ATTENDING PHYSICIAN Internal Medicine Nephrology; FAMILY PHYSICIAN Internal Medicine
DX: E43 Unspecified severe protein-calorie malnutrition (principal); E87.1 Hypo-osmolality and hyponatremia; N18.4 Chronic kidney disease, stage 4 (severe); N13.2 Hydronephrosis with renal and ureteral calculous obstruction; N20.0 Calculus of kidney; D63.1 Anemia in chronic kidney disease
CPT/HCPCS: 36415; 80069

== ENCOUNTER → 2025-01-13 07:52 | Outpatient (REF) | payer BC, SELFPAY ==
[2025-01-13 08:24] LABS: % Basophils 1.1 % (0-2); % Eosinophils 9.5 % (0-6); % Immature Granulocytes 0.3 % (0-0.5); % Lymphocytes 29.1 % (20.5-51.1); % Monocytes 7.6 % (1.7-9.3); % Neutrophils 52.4 % (42.2-75.2); Absolute Eosinophils 0.4 10^3/uL (0-0.7); Absolute Lymphocytes 1.1 10^3/uL (1.2-3.4); Absolute Monocytes 0.3 10^3/uL (0.1-0.6); Absolute Neutrophils 1.9 10^3/uL (1.4-6.5); Hematocrit 26.1 % (37.0-47.0); Hemoglobin 8.4 g/dL (12.0-16.0); Mean Corp Hgb Conc. 32.2 g/dL (33.0-37.0); Mean Corpuscular Hgb 28.6 pg (27.0-31.0); Mean Corpuscular Volume 88.8 fL (81.0-99.0); Mean Platelet Volume 9.3 fL (7.4-10.4); Nucleated Red Blood Cells % 0 %; Platelet Count 175 10^3/uL (130-400); Red Blood Cell Count 2.94 10^6/uL (4.20-5.40); Red Cell Dist. Width 16.1 % (11.5-14.5); White Blood Cell Count 3.7 10^3/uL (4.8-10.8)
[2025-01-13 09:03] LABS: ALT (SGPT) 22 U/L (0-35); AST (SGOT) 34 U/L (14-36); Albumin 3.2 g/dl (3.5-5.0); Alkaline Phosphatase 96 U/L (38-126); Blood Urea Nitrogen 17 mg/dl (7-17); Calcium 6.9 mg/dl (8.4-10.2); Carbon Dioxide 21 mmol/L (22-30); Chloride 106 mmol/L (98-107); Glucose 63 mg/dl (70-99); Iron 53 ug/dl (37-170); Percent Saturation 19 % (20-50); Phosphorus 3.1 mg/dl (2.5-4.5); Potassium 4.2 mmol/L (3.5-5.1); Sodium 135 mmol/L (135-145); Total Bilirubin 0.5 mg/dl (0.2-1.3); Total Iron Binding Capacity 275 ug/dl (265-497); Total Protein 5.4 g/dl (6.3-8.2); eGFR 48.26
== END ==
LOC: REG 07:52
PROVIDERS: ATTENDING PHYSICIAN Internal Medicine Nephrology; FAMILY PHYSICIAN Internal Medicine
DX: E43 Unspecified severe protein-calorie malnutrition (principal); E87.1 Hypo-osmolality and hyponatremia; N18.4 Chronic kidney disease, stage 4 (severe); N13.2 Hydronephrosis with renal and ureteral calculous obstruction; N20.0 Calculus of kidney; D63.1 Anemia in chronic kidney disease; D64.9 Anemia, unspecified; E87.8 Other disorders of electrolyte and fluid balance, not elsewhere classified
CPT/HCPCS: 36415; 80053; 80069; 83540; 83550; 85025

== ENCOUNTER → 2025-01-21 07:55 | Outpatient (REF) | payer BC, SELFPAY ==
[2025-01-21 08:18] LABS: % Basophils 1.5 % (0-2); % Eosinophils 8.3 % (0-6); % Immature Granulocytes 0.3 % (0-0.5); % Lymphocytes 27.4 % (20.5-51.1); % Monocytes 6.8 % (1.7-9.3); % Neutrophils 55.7 % (42.2-75.2); Absolute Basophils 0.1 10^3/uL (0-0.2); Absolute Eosinophils 0.3 10^3/uL (0-0.7); Absolute Lymphocytes 0.9 10^3/uL (1.2-3.4); Absolute Monocytes 0.2 10^3/uL (0.1-0.6); Absolute Neutrophils 1.9 10^3/uL (1.4-6.5); Hematocrit 24.3 % (37.0-47.0); Mean Corp Hgb Conc. 32.9 g/dL (33.0-37.0); Mean Corpuscular Hgb 28.3 pg (27.0-31.0); Mean Corpuscular Volume 85.9 fL (81.0-99.0); Mean Platelet Volume 9.2 fL (7.4-10.4); Nucleated Red Blood Cells % 0 %; Platelet Count 193 10^3/uL (130-400); Red Blood Cell Count 2.83 10^6/uL (4.20-5.40); Red Cell Dist. Width 16.5 % (11.5-14.5); White Blood Cell Count 3.4 10^3/uL (4.8-10.8)
[2025-01-21 08:43] LABS: ALT (SGPT) 20 U/L (0-35); AST (SGOT) 31 U/L (14-36); Albumin 3.2 g/dl (3.5-5.0); Alkaline Phosphatase 96 U/L (38-126); Blood Urea Nitrogen 11 mg/dl (7-17); Calcium 7.5 mg/dl (8.4-10.2); Carbon Dioxide 19 mmol/L (22-30); Chloride 107 mmol/L (98-107); Glucose 80 mg/dl (70-99); Iron 34 ug/dl (37-170); Phosphorus 2.6 mg/dl (2.5-4.5); Sodium 134 mmol/L (135-145); Total Bilirubin 0.4 mg/dl (0.2-1.3); Total Protein 5.5 g/dl (6.3-8.2); eGFR 48.26
[2025-01-21 08:52] LABS: Percent Saturation 11 % (20-50); Total Iron Binding Capacity 286 ug/dl (265-497)
== END ==
LOC: REG 07:55
PROVIDERS: ATTENDING PHYSICIAN Internal Medicine Nephrology; FAMILY PHYSICIAN Internal Medicine
DX: E43 Unspecified severe protein-calorie malnutrition (principal); E87.1 Hypo-osmolality and hyponatremia; N18.4 Chronic kidney disease, stage 4 (severe); N13.2 Hydronephrosis with renal and ureteral calculous obstruction; N20.0 Calculus of kidney; D63.1 Anemia in chronic kidney disease
CPT/HCPCS: 36415; 80053; 83540; 83550; 84100; 85025

== ENCOUNTER → 2025-01-28 09:38 | Outpatient (REF) | payer BC, SELFPAY ==
[2025-01-28 10:23] LABS: % Basophils 1.6 % (0-2); % Eosinophils 7.4 % (0-6); % Lymphocytes 32.3 % (20.5-51.1); % Monocytes 8.7 % (1.7-9.3); Absolute Basophils 0.1 10^3/uL (0-0.2); Absolute Eosinophils 0.2 10^3/uL (0-0.7); Absolute Monocytes 0.3 10^3/uL (0.1-0.6); Absolute Neutrophils 1.6 10^3/uL (1.4-6.5); Hematocrit 25.8 % (37.0-47.0); Mean Corpuscular Hgb 28.7 pg (27.0-31.0); Mean Corpuscular Volume 92.5 fL (81.0-99.0); Nucleated Red Blood Cells % 0 %; Platelet Count 189 10^3/uL (130-400); Red Blood Cell Count 2.79 10^6/uL (4.20-5.40); Red Cell Dist. Width 16.8 % (11.5-14.5); White Blood Cell Count 3.1 10^3/uL (4.8-10.8)
[2025-01-28 11:10] LABS: ALT (SGPT) 19 U/L (0-35); AST (SGOT) 28 U/L (14-36); Albumin 3.1 g/dl (3.5-5.0); Alkaline Phosphatase 88 U/L (38-126); Blood Urea Nitrogen 11 mg/dl (7-17); Calcium 8.6 mg/dl (8.4-10.2); Carbon Dioxide 23 mmol/L (22-30); Chloride 106 mmol/L (98-107); Glucose 65 mg/dl (70-99); Iron 59 ug/dl (37-170); Phosphorus 3.7 mg/dl (2.5-4.5); Potassium 4.3 mmol/L (3.5-5.1); Sodium 134 mmol/L (135-145); Total Bilirubin 0.3 mg/dl (0.2-1.3); Total Protein 5.4 g/dl (6.3-8.2); eGFR 44.16
[2025-01-28 11:19] LABS: Percent Saturation 21 % (20-50); Total Iron Binding Capacity 277 ug/dl (265-497)
== END ==
LOC: RCS 09:38
PROVIDERS: ATTENDING PHYSICIAN Internal Medicine Nephrology; FAMILY PHYSICIAN Internal Medicine
DX: E43 Unspecified severe protein-calorie malnutrition (principal); E87.1 Hypo-osmolality and hyponatremia; N18.4 Chronic kidney disease, stage 4 (severe); N13.2 Hydronephrosis with renal and ureteral calculous obstruction; N20.0 Calculus of kidney; D63.1 Anemia in chronic kidney disease
CPT/HCPCS: 36415; 80053; 83540; 83550; 84100; 85025; 93005

== ENCOUNTER → 2025-02-03 09:55 | Outpatient (REF) | payer BC, SELFPAY ==
[2025-02-03 10:31] LABS: % Basophils 1.2 % (0-2); % Eosinophils 7.8 % (0-6); % Immature Granulocytes 0.3 % (0-0.5); % Lymphocytes 27.2 % (20.5-51.1); % Monocytes 8.1 % (1.7-9.3); % Neutrophils 55.4 % (42.2-75.2); Absolute Eosinophils 0.3 10^3/uL (0-0.7); Absolute Lymphocytes 0.9 10^3/uL (1.2-3.4); Absolute Monocytes 0.3 10^3/uL (0.1-0.6); Absolute Neutrophils 1.9 10^3/uL (1.4-6.5); Hematocrit 24.2 % (37.0-47.0); Hemoglobin 7.7 g/dL (12.0-16.0); Mean Corp Hgb Conc. 31.8 g/dL (33.0-37.0); Mean Corpuscular Hgb 29.4 pg (27.0-31.0); Mean Corpuscular Volume 92.4 fL (81.0-99.0); Mean Platelet Volume 8.8 fL (7.4-10.4); Nucleated Red Blood Cells % 0 %; Platelet Count 157 10^3/uL (130-400); Red Blood Cell Count 2.62 10^6/uL (4.20-5.40); Reticulocyte Count 1.1 % (0.4-2.8); White Blood Cell Count 3.5 10^3/uL (4.8-10.8)
[2025-02-03 10:51] LABS: ALT (SGPT) 17 U/L (0-35); AST (SGOT) 22 U/L (14-36); Alkaline Phosphatase 90 U/L (38-126); Blood Urea Nitrogen 14 mg/dl (7-17); Calcium 7.5 mg/dl (8.4-10.2); Carbon Dioxide 26 mmol/L (22-30); Chloride 111 mmol/L (98-107); Glucose 75 mg/dl (70-99); Iron 40 ug/dl (37-170); Potassium 4.5 mmol/L (3.5-5.1); Sodium 137 mmol/L (135-145); Total Bilirubin 0.3 mg/dl (0.2-1.3); Total Protein 5.2 g/dl (6.3-8.2); eGFR 53.13
[2025-02-03 11:00] LABS: Percent Saturation 14 % (20-50); Total Iron Binding Capacity 278 ug/dl (265-497)
[2025-02-03 11:07] LABS: Free T4 0.94 ng/dl (0.78-2.19)
[2025-02-03 11:21] LABS: TSH 0.02 uIU/ml (0.47-4.68)
== END ==
LOC: REG 09:55
PROVIDERS: ATTENDING PHYSICIAN Internal Medicine Nephrology; FAMILY PHYSICIAN Internal Medicine
DX: N18.4 Chronic kidney disease, stage 4 (severe) (principal); D64.9 Anemia, unspecified; E87.8 Other disorders of electrolyte and fluid balance, not elsewhere classified; E43 Unspecified severe protein-calorie malnutrition; E03.9 Hypothyroidism, unspecified
CPT/HCPCS: 36415; 80053; 83540; 83550; 84100; 84439; 84443; 85025; 85045

== ENCOUNTER → 2025-02-11 08:47 | Outpatient (REF) | payer BC, SELFPAY ==
[2025-02-11 09:49] LABS: % Basophils 1.1 % (0-2); % Eosinophils 7.9 % (0-6); % Immature Granulocytes 0.3 % (0-0.5); % Lymphocytes 25.1 % (20.5-51.1); % Monocytes 8.2 % (1.7-9.3); % Neutrophils 57.4 % (42.2-75.2); Absolute Eosinophils 0.3 10^3/uL (0-0.7); Absolute Lymphocytes 0.9 10^3/uL (1.2-3.4); Absolute Monocytes 0.3 10^3/uL (0.1-0.6); Hematocrit 25.2 % (37.0-47.0); Hemoglobin 7.9 g/dL (12.0-16.0); Mean Corp Hgb Conc. 31.3 g/dL (33.0-37.0); Mean Corpuscular Hgb 29.5 pg (27.0-31.0); Nucleated Red Blood Cells % 0 %; Platelet Count 242 10^3/uL (130-400); Red Blood Cell Count 2.68 10^6/uL (4.20-5.40); Red Cell Dist. Width 17.2 % (11.5-14.5); Reticulocyte Count 1.9 % (0.4-2.8); White Blood Cell Count 3.5 10^3/uL (4.8-10.8)
[2025-02-11 10:08] LABS: ALT (SGPT) 20 U/L (0-35); AST (SGOT) 26 U/L (14-36); Albumin 3.3 g/dl (3.5-5.0); Alkaline Phosphatase 128 U/L (38-126); Blood Urea Nitrogen 12 mg/dl (7-17); Calcium 7.1 mg/dl (8.4-10.2); Carbon Dioxide 24 mmol/L (22-30); Chloride 105 mmol/L (98-107); Glucose 81 mg/dl (70-99); Iron 35 ug/dl (37-170); Phosphorus 3.8 mg/dl (2.5-4.5); Potassium 4.9 mmol/L (3.5-5.1); Sodium 135 mmol/L (135-145); Total Bilirubin 0.3 mg/dl (0.2-1.3); Total Protein 5.6 g/dl (6.3-8.2); eGFR 53.13
[2025-02-11 10:17] LABS: Percent Saturation 12 % (20-50); Total Iron Binding Capacity 277 ug/dl (265-497)
[2025-02-11 10:39] LABS: TSH Reflex To Free T4 0.02 uIU/ml (0.47-4.68)
[2025-02-11 10:43] LABS: Ferritin 9.1 ng/ml (11.1-264.0)
[2025-02-11 11:07] LABS: Free T4 1.11 ng/dl (0.78-2.19)
[2025-02-11 11:15] LABS: Folate > 20.0 ng/ml (2.76-20); Vitamin B12 637 pg/ml (239-931)
== END ==
LOC: REG 08:47
PROVIDERS: ATTENDING PHYSICIAN Internal Medicine Nephrology; FAMILY PHYSICIAN Internal Medicine
DX: N18.4 Chronic kidney disease, stage 4 (severe) (principal); D64.9 Anemia, unspecified; E87.8 Other disorders of electrolyte and fluid balance, not elsewhere classified; E43 Unspecified severe protein-calorie malnutrition; E03.9 Hypothyroidism, unspecified; R63.4 Abnormal weight loss; R53.83 Other fatigue; E46 Unspecified protein-calorie malnutrition; D63.1 Anemia in chronic kidney disease; N20.0 Calculus of kidney; N13.2 Hydronephrosis with renal and ureteral calculous obstruction
CPT/HCPCS: 36415; 80053; 82607; 82728; 82746; 83540; 83550; 84100; 84439; 84443; 85025; 85045

== ENCOUNTER → 2025-02-21 08:49 | Outpatient (REF) | payer BC, SELFPAY ==
[2025-02-21 09:43] LABS: % Basophils 1.4 % (0-2); % Eosinophils 4.1 % (0-6); % Immature Granulocytes 0.2 % (0-0.5); % Lymphocytes 23.9 % (20.5-51.1); % Monocytes 7.9 % (1.7-9.3); % Neutrophils 62.5 % (42.2-75.2); Absolute Basophils 0.1 10^3/uL (0-0.2); Absolute Eosinophils 0.2 10^3/uL (0-0.7); Absolute Lymphocytes 1.1 10^3/uL (1.2-3.4); Absolute Monocytes 0.4 10^3/uL (0.1-0.6); Absolute Neutrophils 2.8 10^3/uL (1.4-6.5); Hematocrit 23.1 % (37.0-47.0); Hemoglobin 7.4 g/dL (12.0-16.0); Mean Corpuscular Hgb 29.2 pg (27.0-31.0); Mean Corpuscular Volume 91.3 fL (81.0-99.0); Mean Platelet Volume 8.6 fL (7.4-10.4); Nucleated Red Blood Cells % 0 %; Platelet Count 281 10^3/uL (130-400); Red Blood Cell Count 2.53 10^6/uL (4.20-5.40); Red Cell Dist. Width 15.9 % (11.5-14.5); White Blood Cell Count 4.4 10^3/uL (4.8-10.8)
[2025-02-21 10:35] LABS: ALT (SGPT) 22 U/L (0-35); AST (SGOT) 22 U/L (14-36); Albumin 2.8 g/dl (3.5-5.0); Alkaline Phosphatase 118 U/L (38-126); Blood Urea Nitrogen 11 mg/dl (7-17); Calcium 7.5 mg/dl (8.4-10.2); Carbon Dioxide 24 mmol/L (22-30); Chloride 106 mmol/L (98-107); Glucose 67 mg/dl (70-99); Phosphorus 3.8 mg/dl (2.5-4.5); Potassium 4.2 mmol/L (3.5-5.1); Sodium 133 mmol/L (135-145); Total Bilirubin 0.4 mg/dl (0.2-1.3)
[2025-02-21 11:30] LABS: Intact PTH < 3.4 pg/ml (13.6-85.8)
== END ==
LOC: REG 08:49
PROVIDERS: ATTENDING PHYSICIAN Internal Medicine; FAMILY PHYSICIAN Internal Medicine
DX: N18.32 Chronic kidney disease, stage 3b (principal)
CPT/HCPCS: 36415; 80053; 83970; 84100; 85025

== ENCOUNTER → 2025-02-28 09:31 | Outpatient (REF) | payer BC, SELFPAY ==
[2025-02-28 10:03] LABS: % Basophils 1.8 % (0-2); % Eosinophils 3.3 % (0-6); % Immature Granulocytes 0.3 % (0-0.5); % Lymphocytes 26.7 % (20.5-51.1); % Monocytes 6.4 % (1.7-9.3); % Neutrophils 61.5 % (42.2-75.2); Absolute Basophils 0.1 10^3/uL (0-0.2); Absolute Eosinophils 0.1 10^3/uL (0-0.7); Absolute Monocytes 0.3 10^3/uL (0.1-0.6); Absolute Neutrophils 2.4 10^3/uL (1.4-6.5); Hemoglobin 7.7 g/dL (12.0-16.0); Mean Corp Hgb Conc. 30.8 g/dL (33.0-37.0); Mean Corpuscular Hgb 28.5 pg (27.0-31.0); Mean Corpuscular Volume 92.6 fL (81.0-99.0); Mean Platelet Volume 8.8 fL (7.4-10.4); Nucleated Red Blood Cells % 0 %; Platelet Count 221 10^3/uL (130-400); Red Cell Dist. Width 15.9 % (11.5-14.5); White Blood Cell Count 3.9 10^3/uL (4.8-10.8)
[2025-02-28 10:23] LABS: ALT (SGPT) 20 U/L (0-35); AST (SGOT) 26 U/L (14-36); Albumin 3.1 g/dl (3.5-5.0); Alkaline Phosphatase 110 U/L (38-126); Blood Urea Nitrogen 8 mg/dl (7-17); Calcium 8.3 mg/dl (8.4-10.2); Carbon Dioxide 22 mmol/L (22-30); Chloride 108 mmol/L (98-107); Glucose 72 mg/dl (70-99); Iron 37 ug/dl (37-170); Phosphorus 4.3 mg/dl (2.5-4.5); Potassium 4.1 mmol/L (3.5-5.1); Sodium 137 mmol/L (135-145); Total Bilirubin 0.4 mg/dl (0.2-1.3); Total Protein 5.5 g/dl (6.3-8.2); eGFR 43.88
[2025-02-28 10:33] LABS: Percent Saturation 14 % (20-50); Total Iron Binding Capacity 254 ug/dl (265-497)
[2025-03-01 12:55] LABS: Free T3 2.37 pg/ml (2.77-5.27)
[2025-03-01 13:09] LABS: TSH < 0.02 uIU/ml (0.47-4.68)
== END ==
LOC: REG 09:31
PROVIDERS: ATTENDING PHYSICIAN Internal Medicine Nephrology; FAMILY PHYSICIAN Internal Medicine
DX: E43 Unspecified severe protein-calorie malnutrition (principal); E87.1 Hypo-osmolality and hyponatremia; N18.4 Chronic kidney disease, stage 4 (severe); N13.2 Hydronephrosis with renal and ureteral calculous obstruction; N20.0 Calculus of kidney; D63.1 Anemia in chronic kidney disease; D64.9 Anemia, unspecified; E87.8 Other disorders of electrolyte and fluid balance, not elsewhere classified
CPT/HCPCS: 36415; 80053; 83540; 83550; 84100; 84443; 84481; 85025

== ENCOUNTER → 2025-03-13 09:16 | Outpatient (REF) | payer BC, SELFPAY ==
[2025-03-13 10:08] LABS: % Basophils 1.3 % (0-2); % Eosinophils 2.9 % (0-6); % Immature Granulocytes 0.5 % (0-0.5); % Lymphocytes 29.3 % (20.5-51.1); % Monocytes 9.6 % (1.7-9.3); % Neutrophils 56.4 % (42.2-75.2); Absolute Basophils 0.1 10^3/uL (0-0.2); Absolute Eosinophils 0.1 10^3/uL (0-0.7); Absolute Lymphocytes 1.1 10^3/uL (1.2-3.4); Absolute Monocytes 0.4 10^3/uL (0.1-0.6); Absolute Neutrophils 2.1 10^3/uL (1.4-6.5); Hematocrit 25.3 % (37.0-47.0); Hemoglobin 7.9 g/dL (12.0-16.0); Mean Corp Hgb Conc. 31.2 g/dL (33.0-37.0); Mean Corpuscular Hgb 28.6 pg (27.0-31.0); Mean Corpuscular Volume 91.7 fL (81.0-99.0); Mean Platelet Volume 8.8 fL (7.4-10.4); Nucleated Red Blood Cells % 0 %; Platelet Count 261 10^3/uL (130-400); Red Blood Cell Count 2.76 10^6/uL (4.20-5.40); Red Cell Dist. Width 16.1 % (11.5-14.5); White Blood Cell Count 3.8 10^3/uL (4.8-10.8)
[2025-03-13 10:30] LABS: ALT (SGPT) 17 U/L (0-35); AST (SGOT) 21 U/L (14-36); Alkaline Phosphatase 103 U/L (38-126); Blood Urea Nitrogen 9 mg/dl (7-17); Calcium 7.1 mg/dl (8.4-10.2); Carbon Dioxide 22 mmol/L (22-30); Chloride 110 mmol/L (98-107); Glucose 64 mg/dl (70-99); Iron 34 ug/dl (37-170); Phosphorus 3.8 mg/dl (2.5-4.5); Potassium 3.9 mmol/L (3.5-5.1); Sodium 134 mmol/L (135-145); Total Bilirubin 0.5 mg/dl (0.2-1.3); Total Protein 5.3 g/dl (6.3-8.2); eGFR 47.96
[2025-03-13 10:39] LABS: Percent Saturation 13 % (20-50); Total Iron Binding Capacity 243 ug/dl (265-497)
[2025-03-14 11:27] LABS: Thyroid Peroxidase Ab (TPO) 0.9 IU/mL (0.0-9.0)
[2025-03-15 00:11] LABS: Thyroid Stim. Immunoglobulin <0.10 IU/L (<=0.54)
== END ==
LOC: REG 09:16
PROVIDERS: ATTENDING PHYSICIAN Internal Medicine Nephrology; FAMILY PHYSICIAN Internal Medicine
DX: E43 Unspecified severe protein-calorie malnutrition (principal); E87.1 Hypo-osmolality and hyponatremia; N18.4 Chronic kidney disease, stage 4 (severe); N13.2 Hydronephrosis with renal and ureteral calculous obstruction; N20.0 Calculus of kidney; E63.1 Imbalance of constituents of food intake; E87.8 Other disorders of electrolyte and fluid balance, not elsewhere classified
CPT/HCPCS: 36415; 80053; 83540; 83550; 84100; 84445; 85025; 86376

== ENCOUNTER → 2025-03-20 08:43 | Outpatient (REF) | payer BC, SELFPAY ==
[2025-03-20 09:20] LABS: Hematocrit 22.5 % (37.0-47.0); Hemoglobin 7.2 g/dL (12.0-16.0); Mean Corp Hgb Conc. 32.0 g/dL (33.0-37.0); Mean Corpuscular Volume 89.6 fL (81.0-99.0); Nucleated Red Blood Cells % 0 %; Platelet Count 229 10^3/uL (130-400); Red Cell Dist. Width 16.4 % (11.5-14.5)
[2025-03-20 09:43] LABS: ALT (SGPT) 22 U/L (0-35); AST (SGOT) 22 U/L (14-36); Albumin 2.8 g/dl (3.5-5.0); Alkaline Phosphatase 102 U/L (38-126); Blood Urea Nitrogen 12 mg/dl (7-17); Calcium 6.4 mg/dl (8.4-10.2); Carbon Dioxide 20 mmol/L (22-30); Chloride 109 mmol/L (98-107); Glucose 72 mg/dl (70-99); Iron 33 ug/dl (37-170); Potassium 4.4 mmol/L (3.5-5.1); Sodium 133 mmol/L (135-145); Total Iron Binding Capacity 231 ug/dl (265-497); Total Protein 5.1 g/dl (6.3-8.2); eGFR 47.96
== END ==
LOC: REG 08:43
PROVIDERS: ATTENDING PHYSICIAN Internal Medicine Nephrology; FAMILY PHYSICIAN Internal Medicine
DX: N13.2 Hydronephrosis with renal and ureteral calculous obstruction (principal); D63.1 Anemia in chronic kidney disease; N18.4 Chronic kidney disease, stage 4 (severe); E87.1 Hypo-osmolality and hyponatremia; E43 Unspecified severe protein-calorie malnutrition; E87.8 Other disorders of electrolyte and fluid balance, not elsewhere classified
CPT/HCPCS: 36415; 80053; 80069; 83540; 83550; 85025

== ENCOUNTER → 2025-03-22 13:49 | Outpatient (REF) | payer BC, SELFPAY ==
[2025-03-22 14:28] LABS: Hematocrit 23.1 % (37.0-47.0); Hemoglobin 7.4 g/dL (12.0-16.0); Mean Corp Hgb Conc. 32.0 g/dL (33.0-37.0); Mean Corpuscular Volume 90.9 fL (81.0-99.0); Nucleated Red Blood Cells % 0 %; Platelet Count 228 10^3/uL (130-400); Red Cell Dist. Width 16.1 % (11.5-14.5)
[2025-03-22 15:18] LABS: Ferritin 5.0 ng/ml (11.1-264.0)
[2025-03-22 15:51] LABS: ALT (SGPT) 25 U/L (0-35); AST (SGOT) 22 U/L (14-36); Albumin 2.8 g/dl (3.5-5.0); Alkaline Phosphatase 118 U/L (38-126); Blood Urea Nitrogen 10 mg/dl (7-17); Calcium 7.0 mg/dl (8.4-10.2); Carbon Dioxide 20 mmol/L (22-30); Chloride 107 mmol/L (98-107); Glucose 74 mg/dl (70-99); Iron 50 ug/dl (37-170); Potassium 4.4 mmol/L (3.5-5.1); Sodium 132 mmol/L (135-145); Total Protein 5.1 g/dl (6.3-8.2); eGFR 52.80
[2025-03-22 16:00] LABS: Total Iron Binding Capacity 229 ug/dl (265-497)
[2025-03-22 17:07] LABS: Vitamin D, 25-OH*** 34.0 ng/mL (30-80)
[2025-03-22 17:20] LABS: TSH < 0.02 uIU/ml (0.47-4.68)
== END ==
LOC: REG 13:49
PROVIDERS: ATTENDING PHYSICIAN Internal Medicine Hematology & Oncology; FAMILY PHYSICIAN Internal Medicine; OTHER PHYSICIAN Internal Medicine; OTHER PHYSICIAN Internal Medicine Endocrinology, Diabetes & Metabolism
DX: D64.9 Anemia, unspecified (principal); D63.1 Anemia in chronic kidney disease; M81.8 Other osteoporosis without current pathological fracture; R63.4 Abnormal weight loss; D75.89 Other specified diseases of blood and blood-forming organs; N18.4 Chronic kidney disease, stage 4 (severe); R64 Cachexia; D50.9 Iron deficiency anemia, unspecified; N18.32 Chronic kidney disease, stage 3b; E20.9 Hypoparathyroidism, unspecified; E55.9 Vitamin D deficiency, unspecified; E03.9 Hypothyroidism, unspecified
CPT/HCPCS: 80053; 82306; 82330; 82728; 83540; 83550; 83970; 84100; 84439; 84443; 85025

== ENCOUNTER → 2025-03-27 09:51 | Outpatient (REF) | payer BC, SELFPAY ==
[2025-03-27 10:24] LABS: Hematocrit 23.4 % (37.0-47.0); Hemoglobin 7.4 g/dL (12.0-16.0); Mean Corp Hgb Conc. 31.6 g/dL (33.0-37.0); Mean Corpuscular Volume 91.1 fL (81.0-99.0); Nucleated Red Blood Cells % 0 %; Platelet Count 240 10^3/uL (130-400); Red Cell Dist. Width 15.7 % (11.5-14.5)
[2025-03-27 11:54] LABS: ALT (SGPT) 25 U/L (0-35); AST (SGOT) 22 U/L (14-36); Albumin 2.7 g/dl (3.5-5.0); Alkaline Phosphatase 99 U/L (38-126); Blood Urea Nitrogen 12 mg/dl (7-17); Calcium 8.4 mg/dl (8.4-10.2); Carbon Dioxide 24 mmol/L (22-30); Chloride 110 mmol/L (98-107); Glucose 78 mg/dl (70-99); Potassium 4.0 mmol/L (3.5-5.1); Sodium 134 mmol/L (135-145); Total Protein 5.1 g/dl (6.3-8.2); eGFR 52.80
[2025-03-29 00:40] LABS: Thyroid Stim. Immunoglobulin <0.10 IU/L (<=0.54)
== END ==
LOC: REG 09:51
PROVIDERS: ATTENDING PHYSICIAN Internal Medicine; FAMILY PHYSICIAN Internal Medicine
DX: N18.32 Chronic kidney disease, stage 3b (principal)
CPT/HCPCS: 36415; 80053; 84100; 84445; 85025; 86376

== ENCOUNTER → 2025-04-03 09:36 | Outpatient (REF) | payer BC, SELFPAY ==
[2025-04-03 10:24] LABS: Hematocrit 27.6 % (37.0-47.0); Hemoglobin 8.6 g/dL (12.0-16.0); Mean Corp Hgb Conc. 31.2 g/dL (33.0-37.0); Mean Corpuscular Volume 93.2 fL (81.0-99.0); Nucleated Red Blood Cells % 0 %; Platelet Count 293 10^3/uL (130-400); Red Cell Dist. Width 16.0 % (11.5-14.5)
[2025-04-03 10:32] LABS: ALT (SGPT) 22 U/L (0-35); AST (SGOT) 26 U/L (14-36); Albumin 3.3 g/dl (3.5-5.0); Alkaline Phosphatase 100 U/L (38-126); Blood Urea Nitrogen 10 mg/dl (7-17); Calcium 7.8 mg/dl (8.4-10.2); Carbon Dioxide 21 mmol/L (22-30); Chloride 106 mmol/L (98-107); Glucose 73 mg/dl (70-99); Potassium 4.0 mmol/L (3.5-5.1); Sodium 133 mmol/L (135-145); Total Protein 5.8 g/dl (6.3-8.2); eGFR 52.80
== END ==
LOC: REG 09:36
PROVIDERS: ATTENDING PHYSICIAN Internal Medicine Hematology & Oncology; FAMILY PHYSICIAN Internal Medicine; REFERRING PHYSICIAN Internal Medicine
DX: N18.32 Chronic kidney disease, stage 3b (principal); D64.9 Anemia, unspecified; D63.1 Anemia in chronic kidney disease; M81.8 Other osteoporosis without current pathological fracture; R63.4 Abnormal weight loss; D75.89 Other specified diseases of blood and blood-forming organs; N18.4 Chronic kidney disease, stage 4 (severe); R64 Cachexia; D50.9 Iron deficiency anemia, unspecified
CPT/HCPCS: 36415; 80053; 84100; 85025

== ENCOUNTER → 2025-04-10 09:00 | Outpatient (REF) | payer BC, SELFPAY ==
[2025-04-10 09:31] LABS: Hematocrit 23.3 % (37.0-47.0); Hemoglobin 7.4 g/dL (12.0-16.0); Mean Corp Hgb Conc. 31.8 g/dL (33.0-37.0); Mean Corpuscular Volume 91.0 fL (81.0-99.0); Nucleated Red Blood Cells % 0 %; Platelet Count 227 10^3/uL (130-400); Red Cell Dist. Width 14.6 % (11.5-14.5); Reticulocyte Count 1.5 % (0.4-2.8)
[2025-04-10 09:45] LABS: Albumin 3.1 g/dl (3.5-5.0); Blood Urea Nitrogen 18 mg/dl (7-17); Calcium 8.4 mg/dl (8.4-10.2); Carbon Dioxide 26 mmol/L (22-30); Chloride 101 mmol/L (98-107); Glucose 83 mg/dl (70-99); Magnesium 1.8 mg/dl (1.6-2.3); Potassium 3.7 mmol/L (3.5-5.1); Sodium 131 mmol/L (135-145); eGFR 43.88
== END ==
LOC: REG 09:00
PROVIDERS: ATTENDING PHYSICIAN Internal Medicine; FAMILY PHYSICIAN Internal Medicine Nephrology
DX: E03.9 Hypothyroidism, unspecified (principal); D63.8 Anemia in other chronic diseases classified elsewhere; N18.5 Chronic kidney disease, stage 5; E87.1 Hypo-osmolality and hyponatremia; D63.1 Anemia in chronic kidney disease; E05.90 Thyrotoxicosis, unspecified without thyrotoxic crisis or storm; N18.4 Chronic kidney disease, stage 4 (severe); E43 Unspecified severe protein-calorie malnutrition; K90.49 Malabsorption due to intolerance, not elsewhere classified; E83.52 Hypercalcemia
CPT/HCPCS: 36415; 80069; 83735; 85025; 85045

== ENCOUNTER → 2025-04-17 09:17 | Outpatient (REF) | payer BC, SELFPAY ==
[2025-04-17 09:44] LABS: Hematocrit 26.4 % (37.0-47.0); Hemoglobin 8.2 g/dL (12.0-16.0); Mean Corp Hgb Conc. 31.1 g/dL (33.0-37.0); Mean Corpuscular Volume 91.3 fL (81.0-99.0); Nucleated Red Blood Cells % 0 %; Platelet Count 409 10^3/uL (130-400); Red Cell Dist. Width 14.6 % (11.5-14.5)
[2025-04-17 09:57] LABS: Albumin 3.3 g/dl (3.5-5.0); Blood Urea Nitrogen 14 mg/dl (7-17); Calcium 8.8 mg/dl (8.4-10.2); Carbon Dioxide 21 mmol/L (22-30); Chloride 103 mmol/L (98-107); Glucose 76 mg/dl (70-99); Potassium 4.3 mmol/L (3.5-5.1); Sodium 132 mmol/L (135-145); eGFR 40.39
== END ==
LOC: REG 09:17
PROVIDERS: ATTENDING PHYSICIAN Internal Medicine Nephrology; FAMILY PHYSICIAN Internal Medicine
DX: N18.5 Chronic kidney disease, stage 5 (principal); E87.1 Hypo-osmolality and hyponatremia; D63.1 Anemia in chronic kidney disease; E05.90 Thyrotoxicosis, unspecified without thyrotoxic crisis or storm; N18.4 Chronic kidney disease, stage 4 (severe)
CPT/HCPCS: 36415; 80069; 85025

== ENCOUNTER → 2025-04-24 09:20 | Outpatient (REF) | payer BC, SELFPAY ==
[2025-04-24 10:05] LABS: Hematocrit 28.4 % (37.0-47.0); Hemoglobin 8.8 g/dL (12.0-16.0); Mean Corp Hgb Conc. 31.0 g/dL (33.0-37.0); Mean Corpuscular Volume 90.7 fL (81.0-99.0); Nucleated Red Blood Cells % 0 %; Platelet Count 314 10^3/uL (130-400); Red Cell Dist. Width 14.6 % (11.5-14.5)
[2025-04-24 10:37] LABS: Albumin 3.5 g/dl (3.5-5.0); Blood Urea Nitrogen 12 mg/dl (7-17); Calcium 10.1 mg/dl (8.4-10.2); Carbon Dioxide 23 mmol/L (22-30); Chloride 102 mmol/L (98-107); Glucose 74 mg/dl (70-99); Magnesium 1.9 mg/dl (1.6-2.3); Potassium 4.1 mmol/L (3.5-5.1); Sodium 132 mmol/L (135-145); eGFR 37.38
== END ==
LOC: REG 09:20
PROVIDERS: ATTENDING PHYSICIAN Internal Medicine Hematology & Oncology; FAMILY PHYSICIAN Internal Medicine; OTHER PHYSICIAN Internal Medicine Nephrology
DX: D64.9 Anemia, unspecified (principal); D63.1 Anemia in chronic kidney disease; M81.8 Other osteoporosis without current pathological fracture; R63.4 Abnormal weight loss; D75.89 Other specified diseases of blood and blood-forming organs; N18.4 Chronic kidney disease, stage 4 (severe); R64 Cachexia; D50.9 Iron deficiency anemia, unspecified
CPT/HCPCS: 36415; 80069; 83735; 85025

== ENCOUNTER → 2025-05-01 08:31 | Outpatient (REF) | payer BC, SELFPAY ==
[2025-05-01 09:16] LABS: Hematocrit 29.0 % (37.0-47.0); Hemoglobin 8.8 g/dL (12.0-16.0); Mean Corp Hgb Conc. 30.3 g/dL (33.0-37.0); Mean Corpuscular Volume 91.5 fL (81.0-99.0); Nucleated Red Blood Cells % 0 %; Platelet Count 183 10^3/uL (130-400); Red Cell Dist. Width 14.8 % (11.5-14.5)
[2025-05-01 09:49] LABS: ALT (SGPT) 26 U/L (0-35); AST (SGOT) 19 U/L (14-36); Albumin 3.4 g/dl (3.5-5.0); Alkaline Phosphatase 91 U/L (38-126); Blood Urea Nitrogen 16 mg/dl (7-17); Calcium 11.0 mg/dl (8.4-10.2); Carbon Dioxide 22 mmol/L (22-30); Chloride 106 mmol/L (98-107); Glucose 72 mg/dl (70-99); Iron 90 ug/dl (37-170); Potassium 4.1 mmol/L (3.5-5.1); Sodium 134 mmol/L (135-145); Total Protein 5.9 g/dl (6.3-8.2); eGFR 34.76
[2025-05-01 09:58] LABS: Total Iron Binding Capacity 267 ug/dl (265-497)
== END ==
LOC: REG 08:31
PROVIDERS: ATTENDING PHYSICIAN Internal Medicine Nephrology; FAMILY PHYSICIAN Internal Medicine
DX: N18.5 Chronic kidney disease, stage 5 (principal); E87.1 Hypo-osmolality and hyponatremia; D63.1 Anemia in chronic kidney disease; E05.90 Thyrotoxicosis, unspecified without thyrotoxic crisis or storm; N18.4 Chronic kidney disease, stage 4 (severe); D64.9 Anemia, unspecified; E87.8 Other disorders of electrolyte and fluid balance, not elsewhere classified; E43 Unspecified severe protein-calorie malnutrition
CPT/HCPCS: 36415; 80053; 83540; 83550; 84100; 85025

== ENCOUNTER → 2025-05-17 09:09 | Outpatient (REF) | payer BC, SELFPAY ==
[2025-05-17 10:20] LABS: Hematocrit 26.5 % (37.0-47.0); Hemoglobin 8.1 g/dL (12.0-16.0); Mean Corp Hgb Conc. 30.6 g/dL (33.0-37.0); Mean Corpuscular Volume 90.8 fL (81.0-99.0); Nucleated Red Blood Cells % 0 %; Platelet Count 234 10^3/uL (130-400); Red Cell Dist. Width 15.7 % (11.5-14.5)
[2025-05-17 11:10] LABS: ALT (SGPT) 21 U/L (0-35); AST (SGOT) 22 U/L (14-36); Albumin 3.0 g/dl (3.5-5.0); Alkaline Phosphatase 82 U/L (38-126); Blood Urea Nitrogen 12 mg/dl (7-17); Calcium 7.7 mg/dl (8.4-10.2); Carbon Dioxide 19 mmol/L (22-30); Chloride 108 mmol/L (98-107); Glucose 68 mg/dl (70-99); Magnesium 1.9 mg/dl (1.6-2.3); Potassium 4.4 mmol/L (3.5-5.1); Sodium 133 mmol/L (135-145); Total Protein 5.3 g/dl (6.3-8.2); eGFR 40.39
[2025-05-17 11:35] LABS: Albumin 3.1 g/dl (3.5-5.0)
[2025-05-17 12:12] LABS: TSH < 0.02 uIU/ml (0.47-4.68)
[2025-05-17 13:10] LABS: Vitamin D, 25-OH*** 37.6 ng/mL (30-80)
== END ==
LOC: REG 09:09
PROVIDERS: ATTENDING PHYSICIAN Internal Medicine; FAMILY PHYSICIAN Internal Medicine; OTHER PHYSICIAN Internal Medicine; REFERRING PHYSICIAN Internal Medicine Hematology & Oncology
DX: N18.32 Chronic kidney disease, stage 3b (principal); E20.9 Hypoparathyroidism, unspecified; E55.9 Vitamin D deficiency, unspecified; E03.9 Hypothyroidism, unspecified
CPT/HCPCS: 36415; 80053; 82040; 82306; 82330; 82652; 83519; 83735; 83970; 84100; 84439; 84443; 85025

== ENCOUNTER → 2025-07-03 08:40 | Outpatient (REF) | payer BC, SELFPAY ==
[2025-07-03 09:34] LABS: Hematocrit 29.5 % (37.0-47.0); Hemoglobin 9.1 g/dL (12.0-16.0); Mean Corp Hgb Conc. 30.8 g/dL (33.0-37.0); Mean Corpuscular Volume 93.4 fL (81.0-99.0); Nucleated Red Blood Cells % 0 %; Platelet Count 235 10^3/uL (130-400); Red Cell Dist. Width 15.5 % (11.5-14.5)
[2025-07-03 10:48] LABS: ALT (SGPT) 18 U/L (0-35); AST (SGOT) 26 U/L (14-36); Albumin 3.2 g/dl (3.5-5.0); Alkaline Phosphatase 87 U/L (38-126); Blood Urea Nitrogen 14 mg/dl (7-17); Calcium 7.9 mg/dl (8.4-10.2); Carbon Dioxide 19 mmol/L (22-30); Chloride 109 mmol/L (98-107); Glucose 64 mg/dl (70-99); Iron 90 ug/dl (37-170); Magnesium 1.7 mg/dl (1.6-2.3); Potassium 3.9 mmol/L (3.5-5.1); Sodium 133 mmol/L (135-145); Total Protein 5.5 g/dl (6.3-8.2); eGFR 37.38
[2025-07-03 10:58] LABS: Total Iron Binding Capacity 262 ug/dl (265-497)
== END ==
LOC: REG 08:40
PROVIDERS: ATTENDING PHYSICIAN Internal Medicine Nephrology; FAMILY PHYSICIAN Internal Medicine
DX: N18.4 Chronic kidney disease, stage 4 (severe) (principal); D64.9 Anemia, unspecified; E87.8 Other disorders of electrolyte and fluid balance, not elsewhere classified; E43 Unspecified severe protein-calorie malnutrition; N18.5 Chronic kidney disease, stage 5; E87.1 Hypo-osmolality and hyponatremia; D63.1 Anemia in chronic kidney disease; E05.90 Thyrotoxicosis, unspecified without thyrotoxic crisis or storm; N20.0 Calculus of kidney; K90.49 Malabsorption due to intolerance, not elsewhere classified; E83.52 Hypercalcemia; N13.2 Hydronephrosis with renal and ureteral calculous obstruction
CPT/HCPCS: 36415; 80053; 83540; 83550; 83735; 84100; 85025

== ENCOUNTER → 2025-08-07 07:03 | Outpatient (REF) | payer BC, SELFPAY ==
[2025-08-07 08:09] LABS: Hematocrit 29.7 % (37.0-47.0); Hemoglobin 9.5 g/dL (12.0-16.0); Mean Corp Hgb Conc. 32.0 g/dL (33.0-37.0); Mean Corpuscular Volume 91.1 fL (81.0-99.0); Nucleated Red Blood Cells % 0 %; Platelet Count 259 10^3/uL (130-400); Red Cell Dist. Width 15.9 % (11.5-14.5)
[2025-08-07 08:32] LABS: FSH < 0.7 mIU/ml
[2025-08-07 08:42] LABS: Vitamin D, 25-OH*** 34.6 ng/mL (30-80)
[2025-08-07 08:45] LABS: TSH < 0.02 uIU/ml (0.47-4.68)
[2025-08-07 08:55] LABS: Calcium 7.6 mg/dl (8.4-10.2)
[2025-08-07 09:12] LABS: ALT (SGPT) 21 U/L (0-35); AST (SGOT) 23 U/L (14-36); Albumin 3.2 g/dl (3.5-5.0); Alkaline Phosphatase 77 U/L (38-126); Amylase 89 U/L (30-110); Blood Urea Nitrogen 12 mg/dl (7-17); Calcium 7.1 mg/dl (8.4-10.2); Carbon Dioxide 19 mmol/L (22-30); Chloride 109 mmol/L (98-107); Glucose 63 mg/dl (70-99); Iron 52 ug/dl (37-170); Lipase 230 U/L (23-300); Potassium 4.2 mmol/L (3.5-5.1); Sodium 131 mmol/L (135-145); Total Protein 5.2 g/dl (6.3-8.2); eGFR 58.61
[2025-08-07 09:22] LABS: Total Iron Binding Capacity 258 ug/dl (265-497)
[2025-08-07 10:05] LABS: Cortisol, Random > 123.0 ug/dl
== END ==
LOC: REG 07:03
PROVIDERS: ATTENDING PHYSICIAN Internal Medicine; FAMILY PHYSICIAN Internal Medicine
DX: N18.4 Chronic kidney disease, stage 4 (severe) (principal); D64.9 Anemia, unspecified; E87.8 Other disorders of electrolyte and fluid balance, not elsewhere classified; E43 Unspecified severe protein-calorie malnutrition; R14.0 Abdominal distension (gaseous); K90.9 Intestinal malabsorption, unspecified
CPT/HCPCS: 36415; 80053; 82024; 82150; 82306; 82533; 82652; 83001; 83540; 83550; 83690; 83970; 84100; 84146; 84439; 84443; 85025

== ENCOUNTER → 2025-08-29 09:28 | Outpatient (REF) | payer BC, SELFPAY ==
[2025-08-29 09:59] LABS: Hematocrit 31.9 % (37.0-47.0); Hemoglobin 10.3 g/dL (12.0-16.0); Mean Corp Hgb Conc. 32.3 g/dL (33.0-37.0); Mean Corpuscular Volume 91.4 fL (81.0-99.0); Nucleated Red Blood Cells % 0 %; Platelet Count 251 10^3/uL (130-400); Red Cell Dist. Width 14.9 % (11.5-14.5)
[2025-08-29 10:13] LABS: ALT (SGPT) 19 U/L (0-35); AST (SGOT) 27 U/L (14-36); Albumin 3.5 g/dl (3.5-5.0); Alkaline Phosphatase 91 U/L (38-126); Blood Urea Nitrogen 16 mg/dl (7-17); Calcium 8.3 mg/dl (8.4-10.2); Carbon Dioxide 22 mmol/L (22-30); Chloride 103 mmol/L (98-107); Glucose 73 mg/dl (70-99); Potassium 4.4 mmol/L (3.5-5.1); Sodium 131 mmol/L (135-145); Total Protein 6.2 g/dl (6.3-8.2); eGFR 43.88
== END ==
LOC: REG 09:28
PROVIDERS: ATTENDING PHYSICIAN Internal Medicine Nephrology; FAMILY PHYSICIAN Internal Medicine; OTHER PHYSICIAN Internal Medicine
DX: N18.5 Chronic kidney disease, stage 5 (principal); E87.1 Hypo-osmolality and hyponatremia; D63.1 Anemia in chronic kidney disease; E05.90 Thyrotoxicosis, unspecified without thyrotoxic crisis or storm; N18.4 Chronic kidney disease, stage 4 (severe); N18.32 Chronic kidney disease, stage 3b
CPT/HCPCS: 36415; 80053; 84100; 85025

== ENCOUNTER → 2025-09-11 13:11 | Outpatient (REF) | payer BC, SELFPAY ==
[2025-09-11 15:25] LABS: Urine Character Cloudy (Clear)
[2025-09-11 15:29] LABS: Hematocrit 28.7 % (37.0-47.0); Hemoglobin 9.4 g/dL (12.0-16.0); Mean Corp Hgb Conc. 32.8 g/dL (33.0-37.0); Mean Corpuscular Volume 88.9 fL (81.0-99.0); Nucleated Red Blood Cells % 0 %; Platelet Count 276 10^3/uL (130-400); Red Cell Dist. Width 14.5 % (11.5-14.5)
[2025-09-11 15:36] LABS: Albumin 3.3 g/dl (3.5-5.0); Blood Urea Nitrogen 16 mg/dl (7-17); Calcium 7.4 mg/dl (8.4-10.2); Carbon Dioxide 21 mmol/L (22-30); Chloride 101 mmol/L (98-107); Glucose 76 mg/dl (70-99); Potassium 4.2 mmol/L (3.5-5.1); Sodium 130 mmol/L (135-145); eGFR 40.39
[2025-09-11 15:40] LABS: Urine Squamous Cell 0-2 /LPF (Few); Urine White Cell >100 /HPF (0-5)
[2025-09-11 15:58] LABS: Microalbumin, Random Urine 14.5 mg/dl (0.6-1.7)
== END ==
LOC: HWRAD 13:11
PROVIDERS: ATTENDING PHYSICIAN Internal Medicine; FAMILY PHYSICIAN Internal Medicine
DX: R10.A2 Flank pain, left side (principal); N18.32 Chronic kidney disease, stage 3b; Z87.442 Personal history of urinary calculi
CPT/HCPCS: 36415; 74176; 80069; 81003; 81015; 82043; 82570; 85025; 87086; 87088; 87186

== ENCOUNTER 2025-09-12 22:06 | Inpatient (IN) | payer BC, SELFPAY ==
[2025-09-12 16:34] VITALS: BP 90/45
[2025-09-12 17:01] LABS: Hematocrit 28.1 % (37.0-47.0); Hemoglobin 9.2 g/dL (12.0-16.0); Mean Corp Hgb Conc. 32.7 g/dL (33.0-37.0); Mean Corpuscular Volume 87.0 fL (81.0-99.0); Nucleated Red Blood Cells % 0 %; Platelet Count 298 10^3/uL (130-400); Red Cell Dist. Width 14.5 % (11.5-14.5)
[2025-09-12 17:30] LABS: ALT (SGPT) 16 U/L (0-35); AST (SGOT) 23 U/L (14-36); Albumin 3.3 g/dl (3.5-5.0); Alkaline Phosphatase 93 U/L (38-126); Blood Urea Nitrogen 15 mg/dl (7-17); Calcium 8.0 mg/dl (8.4-10.2); Carbon Dioxide 15 mmol/L (22-30); Chloride 102 mmol/L (98-107); Glucose 52 mg/dl (70-99); Potassium 4.5 mmol/L (3.5-5.1); Sodium 130 mmol/L (135-145); Total Protein 5.9 g/dl (6.3-8.2); eGFR 37.38
[2025-09-12 17:59] LABS: Glucose - Point of Care 76 mg/dl (70-99)
--- NOTE | 2025-09-12 19:40 | ED.GENMED ---
History of Present Illness
General
Chief Complaint: Flank Pain
Time Seen by Provider: 09/12/25 19:06
History of Present Illness
History of Present Illness:
55-year-old female with history of RSD with chronic pain issues, history of frequent kidney stones requiring stenting in the past, history of chronic kidney disease presenting to the emergency department for left flank pain. Patient reports
symptoms for the past 5 days. Pain radiates to the lower abdomen. She has recently been following with a urologist through [place], as well as her PCP, had outpatient CT imaging yesterday that showed a kidney stone with some hydronephrosis. She
notes that she is never able to pass stones. Her doctors advised that she come to the hospital. She has been taking Tylenol at home for pain without significant relief. Denies fever, chest pain, difficulty breathing. Denies any vomiting. Denies
additional acute medical complaint
Past History
Past History
ED Past Medical History: Cancer (Cervical CA), CHF, Renal failure (Chronic kidney disease), Hypothyroidism and Other (Lyme, Barrets esophagus, Pancreatic malobsorption, KIdney stones, Anemia, stage V kidney disease, LBBB)
ED Past Surgical History: Orthopedic (Bunionectomy, ), Urological (Nephrostomy, Right ureteral reimplantation, Stents, PE Pediatric cather placed for dialysis) and Other (Parathyroidectomy, Hernia repair)
Social History
Tobacco: Non-smoker
Alcohol: None
Drug: None
Personal:
Living: with family
Employment: Employed (Pharm sales)
Family History
Family History: Other (History her father has a 'weak heart')
Phy Exam
Physical Exam
Physical Exam:
General: Well-appearing, no clinical signs of dehydration, nontoxic and in no acute distress. Cachectic
HEENT: protecting airway
Neck: appears supple
CV: Normal heart rate, regular rhythm
Resp: No accessory muscle use, no increased work of breathing, lungs clear to auscultation bilaterally
Abd: Soft and non-distended, generalized tenderness to the left lower region of the abdomen without rebound or guarding. Mild left CVA tenderness
Extremities: No deformities, no swelling
Neuro: alert, no focal neurologic deficit
: deferred
Rectal: deferred
Psych: Normal affect
Skin: Intact
Course
Orders/Labs/Results
Orders:
Orders
09/12/25 16:52
CMP [Comprehensive Metabolic Panel] Urgent
Complete Blood Count/With Diff Urgent
09/12/25 19:28
HYDROmorphone [Dilaudid] 0.5 mg IV NOW STA
09/12/25 20:15
Urinalysis Reflex To Culture Urgent
Date Specimen was Collected: 09/12/25
Time Specimen was Collected: 20:08
Urine Microscopic Reflex Cult Urgent
Urine Culture Urgent
LILIBETH Source: U
Specimen Description:
Date Specimen was Collected: 09/12/25
Time Specimen was Collected: 20:08
09/12/25 21:08
Cefepime HCl [Maxipime] 2,000 mg IV NOW STA
HYDROmorphone [Dilaudid] 0.5 mg IV NOW STA
Tamsulosin [Flomax] 0.4 mg PO NOW STA
09/12/25 21:57
Admit/Transfer Patient As Directed
Co-Sign Provider:
Level of Care: Inpatient admission
Assign to:: Medical/Surgical
Physician / Group: Candelario
Diagnosis: Nephrolithiasis
Reason for Hospitalization: Nephrolithiasis
Expected length of stay greater than two midnights?: Yes
ELOS- Estimated Length of Stay in days: 3
I certify the patient meets the requirements for IP care: Yes
PRN Pain Medication Management As Directed
May give lesser potent ordered pain med per pt: Yes
preference::
Protocol:: Medication orders for pain may be administered in a
manner that supports deferring to patient preference
when the pt is:
- Requesting an ordered lesser potent pain medication.
Least to most potent pain medications are defined
as: acetaminophen < NSAID < tramadol < opioids
(morphine, oxycodone, hydromorphone).
- Requesting a lesser dose of the same medication IF
ORDERED.
- Requesting a less intrusive route of administration
if both routes are prescribed by the provider (PO <
IV).
09/12/25 21:58
Code Status As Directed
Resuscitation Status: Full Code
09/13/25 00:25
Acetaminophen [Tylenol] 650 mg PO Q4HPRN PRN
Dextrose 5%/0.9%Sodchl 1000 ml [D5/0.9% Sodium Chloride] 1,000 ml IV 100 mls/hr
HYDROmorphone [Dilaudid] 0.5 mg IV Q4HPRN PRN
09/13/25 00:25
UROLOGY CONSULT Routine
Consulting Provider: Jaquelin Austin
Was physician already notified: Yes
Comment: Nephrolithiasis
Activity As Directed
Activity Level: Ambulate
With Assistance
EKG with chest pain [ECG as needed] As Directed
ECG as needed for:: Chest Pain
I/O [Intake/ Output] As Directed
Frequency: Per unit guidelines
Pneumatic Compression Sleeves As Directed
Type: Knee high
Strain Urine As Directed
Vital Signs As Directed
Frequency: Per unit guidelines
Weight As Directed
Frequency: Daily
Oxygen Therapy [O2 Therapy] [RESP] Routine
Titrate/Wean O2 to maintain O2 sat greater than (%): 94
DX Deep Vein Thrombosis Video Routine
09/13/25 Breakfast
NPO
Allow oral meds: Yes
Allow clear liquids: Sips of Clears
Basic Metabolic Panel IN AM
Complete Blood Count/No Diff IN AM
09/13/25 08:00
CefTRIAXone [Rocephin] 1,000 mg IV Q24H
Tamsulosin [Flomax] 0.4 mg PO DAILY
Abnormal Lab Results
09/12/25 09/12/25 09/12/25
16:52 19:55 20:15
WBC 4.3 L 10^3/uL
(4.8-10.8)
RBC 3.23 L 10^6/uL
(4.20-5.40)
Hgb 9.2 L g/dL
(12.0-16.0)
Hct 28.1 L %
(37.0-47.0)
MCHC 32.7 L g/dL
(33.0-37.0)
Sodium 130 L mmol/L
(135-145)
Carbon Dioxide 15 L mmol/L
(22-30)
Creatinine 1.6 H mg/dL
(0.6-1.0)
Glucose 52 L* mg/dl
(70-99)
Calcium 8.0 L mg/dl
(8.4-10.2)
Total Protein 5.9 L g/dl
(6.3-8.2)
Albumin 3.3 L g/dl
(3.5-5.0)
Urine Ketones 1+ A
(Negative)
Ur Occult Blood Reflex 2+ A
(Negative)
Leukocyte Esterase Rfl 3+ A
(Negative)
Urine WBC (Reflex) >100 A /HPF
(0-5)
Urine Bacteria (Reflex) Many A
(Negative)
Urine Albumin (Reflex) 2+ A
(Neg - Trace)
POC Glucose 69 L mg/dl
(70-99)
09/12/25 16:52
09/12/25 16:52
Vital Signs
Initial and Last Documented VS:
Initial Vital Signs
Temp Pulse Resp BP Pulse Ox
97.6 F 76 18 90/45 100
09/12/25 16:34 09/12/25 16:34 09/12/25 16:34 09/12/25 16:34 09/12/25 16:34
Last Documented Vital Signs
Temp Pulse Resp BP Pulse Ox
97.8 F 61 20 124/77 100
09/13/25 00:20 09/13/25 00:20 09/13/25 00:20 09/13/25 00:20 09/13/25 01:19
MDM/Problems Addressed
MDM/Problems Addressed:
55-year-old female with history of RSD with chronic pain issues, history of frequent kidney stones requiring stenting in the past, history of chronic kidney disease presenting to the emergency department for known left kidney stone with pain. Vital
signs on arrival are significant for mildly low blood pressure, however reports this is her baseline.
On exam patient is in no acute distress, slightly uncomfortable secondary to pain. Patient CT imaging reviewed from yesterday which shows a 3 mm stone in the distal left ureter with some mild left hydronephrosis. Notes that she has had difficulty
passing stones in the past and her doctor was concerned regarding her pain, as well as her prior history of CKD. Labs obtained prior to my assessment which show baseline renal function. No present leukocytosis. Patient's location of pain appears
consistent with her CT imaging from yesterday. Will consult with urology, however will likely require admission for pain control, possible stent placement. Pending urinalysis, however at this time without significant concern for infected stone.
21:00 -urine does show some evidence of infection with WBCs, leukocytes. Did discuss with urology with ultimate recommendation for expulsive therapy with Flomax pain control. On reassessment, continues to have pain, requiring IV pain medication.
Also notes that a week ago her creatinine was 1.2, now 1.7. For this reason we will admit for pain control with urologic consultation. Of note, recommended IV fluids here, however patient is ademently declining due to issues with fluid retention.
*Pulse Oximetry
SaO2: 100
Oxygen Mode of Delivery: Room air
Patient hypoxic: no
*Critical Care Note
Total Time (30-74mins, 75-104mins- exclusive of procedures): Not Applicable
ED Attending Note
-
Portions of this chart may have been created with voice recognition software.� Occasional wrong word or��sound alike� substitutions may have occurred due to the inherent limitations of voice recognition software.
Discharge Plan
Departure
Patient Disposition: Admit
Date of Disposition: 09/12/25
Time of Disposition: 21:11
Presentation/result/management discussed w/ accepting MD/DO: Hospitalist
Patient with high blood pressure during this ER visit?: No
Condition: Fair
Discharge Problem:
Left ureteral calculus, Urinary tract infection
Interventions
Interventions:
*General Assessment Last Done: 09/12/25 16:34
*Neglect/Abuse Screening Last Done: 09/12/25 16:34
*ED COVID-19 Vaccine History Last Done: 09/12/25 20:11
*ED Influenza Vaccine History Last Done: 09/12/25 20:11
[facility] Risk Assessment Tool Last Done: 09/12/25 20:11
*Risk Screen - Suicide (C-SSRS) Last Done: 09/12/25 16:34
*Nursing Disposition Last Done: 09/13/25 00:19
KV-Ywtsno-Bzwuhcqjcu Assessment Last Done: 09/12/25 20:11
ED-Female Genitourinary Assessment Last Done: 09/12/25 20:11
Discharge Date and Time
Discharge Date/Time: 09/13/25 00:20
[2025-09-12 19:58] LABS: Glucose - Point of Care 69 mg/dl (70-99)
[2025-09-12] MEDS: DILAUDID 0.5 MG IV ×2 (20:01→21:24)
[2025-09-12 20:10] VITALS: BP 112/84
[2025-09-12 20:23] LABS: Urine Character Cloudy (Clear)
[2025-09-12 20:46] LABS: Urine Red Blood Cell 0-2 /HPF (0-2); Urine Squamous Cell 0-2 /LPF (Few)
[2025-09-12 20:47] LABS: Urine White Cell >100 /HPF (0-5)
[2025-09-12] MEDS: FLOMAX 0.4 MG PO (21:24)
[2025-09-12] MEDS: MAXIPIME 2000 MG IV (21:25)
--- NOTE | 2025-09-12 22:03 | HPS.HSE ---
Family Physician
-
Family Physician: Cipriano Turner
Chief Complaint
-
Flank Pain
History of Present Illness
Patient is a 55y F with PMH significant for nephrolithiasis, CRPS and uncertain endocrine disorder who presents to ED complaining of L flank pain. Patient reports development of L flank pain on Thursday. She had N/V x 1. She has had pain in the
flank that radiates anteriorly and into the L groin. Patient has priro history of many kidney stoens and notes that current symptoms are similar/ She spoke with her PCP and her Urologist (Dr. Duran @ [facility]) and completed outpatient CT scan
yesterday. This showed two 3mm distal L ureteral stones with L hydro.
Patient was advised to present to the ED as she notes she 'never' passes stones spontaneously and has tenuous kidney function (briefly on HD in the past).
Patient reports chills Thursday through Thursday.
Medical History
Past Medical History
Past Medical History: Reports Other
Additional Past Medical History:
Nephrolithiasis - Recurrent
CKD IV - V
Complex Regional Pain Syndrome
Malnutrition / Fat Malabsorption
Thyroid Disease / Pituitary Disease?
Cervical Cancer
Endometriosis
Anemia of CKD
Chronic Hyponatremia
Past Surgical History: Reports Other
Additional Past Surgical History:
Multiple Lithotripsies / Stents (15)
ACW Port
Spinal Stimulator
Parathyroidectomy
Ex lap (endometriosis)
Bunionectomy x 2
Social History
Tobacco: Non-smoker
Alcohol: None
Drug: None
Family History
Family History: Other (Mother: A-Fib Father: CHF)
Allergies / Home Medications
Allergies reflects when Allergies were last updated in [facility].
Home Medications with original date entered in [facility]
Allergy/Medication List:
Allergies
Allergy/AdvReac Type Severity Reaction Status Date / Time
fentanyl Allergy HALLUCINATI Verified 09/12/25 16:40
ONS
garlic Allergy GI upset, Verified 09/12/25 16:40
nausea,
vomiting
levofloxacin (From Levaquin) Allergy Rash Verified 09/12/25 16:40
nitrofurantoin (From Allergy tingling Verified 09/12/25 16:40
Macrobid) in hand
and feet
NSAIDS (Non-Steroidal Allergy kidney Verified 09/12/25 16:40
Anti-Inflamma disease
sulfamethoxazole (From Allergy ulcers Verified 09/12/25 16:40
Bactrim)
trimethoprim (From Bactrim) Allergy ulcers Verified 09/12/25 16:40
ADHESIVES Allergy Unknown Uncoded 09/12/25 16:40
dermabond Allergy infection Uncoded 09/12/25 16:40
Home Medications
biotin 1,000 mcg chewable tablet 1,000 mcg PO DAILY 11/28/23
calcium carbonate (Tums) 600 mg PO QPM 09/09/24
Review of Systems
-
History Source: Patient
A 12 point ROS was completed and negative except as noted: Yes
Constitutional: Reports Chills; Denies Fever or Fatigue
Respiratory: Denies Cough or Trouble Breathing
Cardiac: Denies Chest Pain or Palpitations
Abdomen/GI: Reports Abdominal Pain, Nausea and Vomiting; Denies Diarrhea
: Reports Flank Pain; Denies Dysuria or Frequency
Musculoskeletal: Denies Joint Pain or Edema
Neurological: Denies Dizzy or Headache
Psych: Denies Depression or Anxiety
Physical Exam
Vital Signs
Vital Signs
Temp Pulse Resp BP Pulse Ox
97.6 F 75 16 112/84 99
09/12/25 16:34 09/12/25 20:10 09/12/25 20:10 09/12/25 20:10 09/12/25 20:10
Physical Exam
General: Other (55y F in no acute distress. Frail / cachectic.)
HEENT: Moist mucous membranes and PERRLA
Respiratory: Clear; No Wheezes, Rales or Rhonchi
Cardiac: S1/S2 and Regular Rhythm; No Murmur
GI: Soft, Non Tender, Non Distended and Normal Bowel Sounds
Musculoskeletal: No Clubbing, No Cyanosis and No Edema
Neuro: AO x 3
Laboratory Results
-
09/12/25 16:52
09/12/25 16:52
Laboratory Results
Total Bilirubin 0.3 mg/dl (0.2-1.3) 09/12/25 16:52
AST 23 U/L (14-36) 09/12/25 16:52
ALT 16 U/L (0-35) 09/12/25 16:52
Alkaline Phosphatase 93 U/L (38-126) 09/12/25 16:52
Impression/Plan
-
A/P: Patient is a 55y F with PMH significant for CRPS and recurrent nephrolithiasis who presents to ED for evaluation of L nephrolithiasis.
Left Ureterolithiasis
Left Hydronephrosis secondary to the above
- Admit for further evaluation and treatment.
- NPO, IVF, tamsulosin.
- Empiric IV abx with ceftriaxone for now.
- Urology consulted for possible cysto / stent.
- Pain control / strain urine overnight.
- Despite prior history, possible she may pass 3mm stones...
CKD IV - V
Chronic Hyponatremia
Chronic Metabolic Acidosis
- Stated 'BERT' per outpatient physicians - though review of prior labs here seems fairy stable with baseline SCr 1.5-1.6 with few outliers / exceptions.
- Follow for changes in renal function / labs.
- ? benefit to sodium bicarb supplementation given chronic acidosis due to renal impairment.
Anemia of CKD
- Stable. Hgb is at / near known baseline. Follow for changes.
Hypoglycemia
Malnutrition
- Chronic / ongoing issues.
- Supplemental dextrose in IVFs.
- Followup with outpatient providers re: further evaluation / management of malnutrition.
Endocrinopathy
- Patient reports h/o alternating hyper and hypoactive thyroid.
- TSH was undetectable in July and she was advised to stop T4 supplementation at that time.
- Follow-up with outpatient physicians / Endocrine as planned for repeat labs / evaluation.
DVT Prophylaxis: SCDs
Code Status: Full
[2025-09-12] MEDS: BENADRYL 12.5 MG IV (22:18)
[2025-09-13 00:14] VITALS: BMI 11.0
[2025-09-13 00:20] VITALS: BP 124/77
[2025-09-13 00:28] LABS: Glucose - Point of Care 66 mg/dl (70-99)
[2025-09-13 00:54] LABS: Glucose - Point of Care 70 mg/dl (70-99)
[2025-09-13] MEDS: D5/0.9% SODIUM CHLORIDE IV ×2 (01:28→15:56)
--- NOTE | 2025-09-13 02:45 | PTCARENOTE ---
Pt received via stretcher from ED; [employer] order. VSS. C/o 04/23 flank pain- pt was administered IV Dilaudid x2 in ED. Pt hypoglycemic in ED. Blood sugar checked result 66. Asymptomatic. Hypoglycemic protocol followed. Pt refused OJ, Pt also refusing
IVFs (also reported by EDMD) educated pt need. Sugar rechecked result 70. FISH ROE TECHNICIAN made aware. Dextrose push ordered. 0300 sugar result 60. Asymptomatic. dextrose push administered. Educated pt again on the need for IVFs. sugar rechecked result 229.
[2025-09-13] MEDS: DILAUDID 0.5 MG IV ×3 (03:01→15:39)
[2025-09-13] MEDS: DEXTROSE 50% SYRINGE 12.5 GRAMS IV ×2 (03:13→06:02)
[2025-09-13 03:18] LABS: Glucose - Point of Care 60 mg/dl (70-99)
[2025-09-13 03:42] LABS: Glucose - Point of Care 229 mg/dl (70-99)
[2025-09-13 06:00] VITALS: BMI 11.0
[2025-09-13 06:08] LABS: Glucose - Point of Care 53 mg/dl (70-99)
--- NOTE | 2025-09-13 06:37 | PTCARENOTE ---
Pt finally agreeable to IVFs as long as the rate is lowered. FUSE ASSEMBLER decrease D5/0.9NaCl 100ml/hr -> 60ml/hr
[2025-09-13 06:52] LABS: Glucose - Point of Care 141 mg/dl (70-99)
[2025-09-13] MEDS: D5/0.9% SODIUM CHLORIDE 1000 IV (07:10)
[2025-09-13 07:54] VITALS: BP 98/64
--- NOTE | 2025-09-13 07:56 | W.PN.HOSP.TC ---
Today's Communication/Plan
-
Discharge today
Assessment / Plan
Assessment / Plan
Physical Exam
General: Other (55 y/o female in no acute distress. Frail / cachectic.)
HEENT: Moist mucous membranes
Respiratory: Clear to Auscultation Bilaterally
Cardiac: S1/S2 and Regular Rhythm
GI: Soft, Non Tender, Non Distended and Normal Bowel Sounds
Musculoskeletal: No Cyanosis and No Edema
Neuro: AAO x 3
Assessment/Plan
55y F with H significant for nephrolithiasis, CRPS and uncertain endocrine disorder who presented to [facility] ED complaining of L flank pain. Patient reports development of L flank pain on 09/08/25. She had N/V x 1. She has had pain in the flank
that radiates anteriorly and into the L groin. Patient has prior history of many kidney stones and noted that current symptoms are similar. She spoke with her PCP and her Urologist (Dr. Duran @ [facility]) and completed outpatient CT scan yesterday.
This showed two 3mm distal L ureteral stones with L hydro.
Patient was advised to present to the [facility] ED as she noted she 'never' passes stones spontaneously and has tenuous kidney function (briefly on HD in the past).
Patient reports chills 09/08/25 through 09/10/25.
Left Ureterolithiasis
Left Hydronephrosis secondary to the above
STATUS POST LEFT URETERAL STENT ON 09/13/25
- Empiric IV abx with ceftriaxone for now --> switch to PO 3rd generation Cephalosporin on discharge -- discussed with urology who will follow-up culture results and repeat labwork outpatient
- Urology consult appreciated
CKD from kidney stones
Chronic Hyponatremia
Chronic Metabolic Acidosis
- Stated 'BERT' per outpatient physicians - though review of prior labs here seems fairy stable with baseline SCr 1.5-1.6 with few outliers / exceptions.
- Follow for changes in renal function / labs.
- ? benefit to sodium bicarb supplementation given chronic acidosis due to renal impairment.
Anemia of CKD
- Stable. Hgb is at / near known baseline. Follow for changes.
Hypoglycemia
Malnutrition
- Chronic / ongoing issues.
- Supplemental dextrose in IVFs.
- Followup with outpatient providers re: further evaluation / management of malnutrition.
Endocrinopathy
- Patient reports h/o alternating hyper and hypoactive thyroid.
- TSH was undetectable in July and she was advised to stop T4 supplementation at that time.
- Follow-up with outpatient physicians / Endocrine as planned for repeat labs / evaluation.
DVT Prophylaxis: SCDs
Code Status: Full
Patient is adamant about discharge today, I discussed case with Dr. Long who said patient is okay for discharge.
More than 30 minutes spent in discharge including
Final examination of the patient
Summarizing hospital stay
Instructions for continuing care to all relevant caregivers
Preparation of discharge records, prescriptions, and referral forms
Total time spent (in minutes): 41
Anticipated Discharge: Today
Subjective/Interval History
-
Date of Service: September 13, 2025
Patient was seen and examined. She reported feeling okay, she clearly stated that she would like to be discharged today and will follow-up with labwork and culture results outpatient.
Objective Data
-
Labs:
Laboratory Results
09/13/25
07:30
WBC Pending
Hgb Pending
Hct Pending
Plt Count Pending
Sodium Pending
Potassium Pending
Chloride Pending
Carbon Dioxide Pending
BUN Pending
Creatinine Pending
Glucose Pending
Calcium Pending
Vital Signs:
Vital Signs
Temp Pulse Resp BP Pulse Ox
97.4 F 79 17 98/64 99
09/13/25 07:54 09/13/25 07:54 09/13/25 07:54 09/13/25 07:54 09/13/25 07:54
[2025-09-13 07:57] LABS: Hematocrit 29.7 % (37.0-47.0); Hemoglobin 9.7 g/dL (12.0-16.0); Mean Corp Hgb Conc. 32.7 g/dL (33.0-37.0); Mean Corpuscular Volume 88.4 fL (81.0-99.0); Platelet Count 310 10^3/uL (130-400); Red Cell Dist. Width 14.3 % (11.5-14.5)
[2025-09-13 08:33] LABS: Blood Urea Nitrogen 13 mg/dl (7-17); Calcium 7.7 mg/dl (8.4-10.2); Carbon Dioxide 18 mmol/L (22-30); Chloride 105 mmol/L (98-107); Estimated Creatinine Clearance 20 ml/min; Glucose 80 mg/dl (70-99); Potassium 3.9 mmol/L (3.5-5.1); Sodium 132 mmol/L (135-145); eGFR 43.88
[2025-09-13] MEDS: STERILE WATER FOR INJECTION 10 ML IV (09:42)
[2025-09-13] MEDS: ROCEPHIN 1000 MG IV (09:42)
[2025-09-13] MEDS: FLOMAX 0.4 MG PO (09:42)
--- NOTE | 2025-09-13 10:33 | CM ---
patient seen at bedside
Dx; Nephrolithiasis
OR today
IA completed
Lives alone in 2 story home, [address], flight to bedroom/bathroom
PLOF: Independent uses a cane at times, drives, works
DME: C[employer]
Denies VN/Rehab
PCP: Cipriano Turner
Pharmacy: [facility] ([facility] [place]
PLAN: Home, no needs when stable
states her mother will transport
--- NOTE | 2025-09-13 10:38 | CONS.URO ---
Consultation
-
Date/Time Consultation Performed: 09/13/25, 0745
Performing Provider: Geovanna
Reason for Consultation: obstructing L ureteral stones
Medical History
History of Present Illness
55y F with PMH significant for nephrolithiasis, CRPS who presents with L flank pain, nausea/vomiting, found to have obstructing L distal ureteral stones with mild hydro. Denies fevers/chills. States she never passes kidney stones and last required
URS/LL 2 years ago and reports that she normally requires pediatric stents. Follows with urology at [place] [facility] - Dr. Duran. She has not passed any recent stones. Denies hematuria, dysuria, frequency. Her pain is uncontrolled at this time.
AFVSS. Cr 1.6 > 1.4. WBC 6. UA 3+ LE, >100 WBCs, many bacteria. UCx pending
CT A/P showed two 2-3 mm L distal ureteral stones with mild L hydro. No renal stones.
Allergies/Home Medications
Allergies
Allergy/AdvReac Type Severity Reaction Status Date / Time
fentanyl Allergy HALLUCINATI Verified 09/12/25 16:40
ONS
garlic Allergy GI upset, Verified 09/12/25 16:40
nausea,
vomiting
levofloxacin (From Levaquin) Allergy Rash Verified 09/12/25 16:40
nitrofurantoin (From Allergy tingling Verified 09/12/25 16:40
Macrobid) in hand
and feet
NSAIDS (Non-Steroidal Allergy kidney Verified 09/12/25 16:40
Anti-Inflamma disease
sulfamethoxazole (From Allergy ulcers Verified 09/12/25 16:40
Bactrim)
trimethoprim (From Bactrim) Allergy ulcers Verified 09/12/25 16:40
ADHESIVES Allergy Unknown Uncoded 09/12/25 16:40
dermabond Allergy infection Uncoded 09/12/25 16:40
Home Medications
�Medication �Instructions �Recorded �Confirmed �Type
biotin 1,000 mcg chewable tablet 1,000 mcg PO DAILY 11/28/23 09/12/25 History
calcium carbonate (Tums) 600 mg PO QPM 09/09/24 09/12/25 History
Physical Exam
Vital Signs
Vital Signs
Temp Pulse Resp BP Pulse Ox
97.4 F 79 17 98/64 99
09/13/25 07:54 09/13/25 07:54 09/13/25 07:54 09/13/25 07:54 09/13/25 07:54
Lab / Testing Results
Laboratory Results
09/13/25 07:30
09/13/25 07:30
Physical Exam
General: No Apparent Distress and Comfortable
HEENT: Normocephalic
Respiratory: Clear
GI: Soft
Genito-urinary: No Costovertebral Tend
Skin: Warm
Neuro: Awake and Alert
Assessment / Plan
-
55y F with PMH significant for nephrolithiasis, CRPS who presents with L flank pain, nausea/vomiting, found to have obstructing L distal ureteral stones 2-3 mm with mild hydro. UA positive for infection, WBC 6.
Plan:
- NPO
- OR today for L ureteral stent, possible L URS/LL - however informed pt this is unlikely due to her urinalysis results
- Follow up UCx
- Continue abx
- Trend Cr
Data Reviewed
-
CT Scan: Image personally visualized and interpreted
Lab Data: Labs Reviewed
[2025-09-13 10:39] VITALS: BMI 11.0
[2025-09-13 12:19] LABS: Glucose - Point of Care 93 mg/dl (70-99)
--- NOTE | 2025-09-13 15:09 | W.SUR.POST ---
Surgical Immediate Post Op
Note
Pre Op Diagnosis: 2 distal left uretral stones wuth intratable pain reza
Post Op Diagnosissame:
Procedure Performed: left uretrscopy laser stent
Primary Surgeon: bruce
Secondary Surgeons:
Anesthesia: chambers , general
Estimated Blood Loss: 1
Fluids: nss
4.7 fr 24 cm
Specimens/Cultures:
Doppler/Duplex/Angio (Y/N):
Complications:
0
Operative Findings: 2 tiny stones left distal uretrr
[2025-09-13 15:15] VITALS: BP 100/64
[2025-09-13 15:19] LABS: Glucose - Point of Care 79 mg/dl (70-99)
[2025-09-13 15:30] VITALS: BP 100/65
[2025-09-13 15:45] VITALS: BP 98/72
--- NOTE | 2025-09-13 16:05 | PTCARENOTE ---
Received patient from PACU at 1605. Patient AAOx3, minimal c/o pain at present, call vela in reach. Patient tolerating sips of fluid.
[2025-09-13 16:08] VITALS: BP 97/54
[2025-09-13 16:52] LABS: Glucose - Point of Care 81 mg/dl (70-99)
--- NOTE | 2025-09-13 17:00 | PTCARENOTE ---
Patient voided 150ml of blood tinged urine without difficulty.
--- NOTE | 2025-09-13 17:01 | PTCARENOTE ---
Patient eager to go home. Patient has no c/o pain, ambulating in room with a steady gait. Patient does not want to eat at hospital, because the food is processed. Discharge instructions reviewed with patient along with 'Low blood sugar prevention,
signs and symptoms.
== END 2025-09-13 17:31 | disposition home or self-care (01) | DRG 660 ==
LOC: 1 ACUTE 22:06
PROVIDERS: Emergency Medicine; Specialist; ADMITTING PHYSICIAN Hospitalist; ATTENDING PHYSICIAN Hospitalist; CONSULT PHYSICIAN Student in an Organized Health Care Education/Training Program; EMERGENCY PHYSICIAN Student in an Organized Health Care Education/Training Program; FAMILY PHYSICIAN Internal Medicine
PROC: 0T778DZ Dilation of Left Ureter with Intraluminal Device, Via Natural or Artificial Opening Endoscopic (ICD-10-PCS; 2025-09-13)
PROC: 0TF78ZZ Fragmentation in Left Ureter, Via Natural or Artificial Opening Endoscopic (ICD-10-PCS; 2025-09-13)
DX: N13.2 Hydronephrosis with renal and ureteral calculous obstruction (principal); E46 Unspecified protein-calorie malnutrition; Z68.1 Body mass index [BMI] 19.9 or less, adult; E87.1 Hypo-osmolality and hyponatremia; E87.22 Chronic metabolic acidosis; N39.0 Urinary tract infection, site not specified; N18.4 Chronic kidney disease, stage 4 (severe); D63.1 Anemia in chronic kidney disease; E16.1 Other hypoglycemia; Z79.899 Other long term (current) drug therapy
CPT/HCPCS: 74018; 76000; 80048; 80053; 81003; 81015; 82962; 85025; 85027; 87071; 87086; 87186; 96374; 96375; 96376; 99284; C2617